=== PATIENT | female | born 1945 | race Caucasian/White ===

== ENCOUNTER 2017-01-12 16:45 | Inpatient (IN) | payer MEDICARE, BC ==
[~2017-01-12] VITALS: Ht 152.4 cm; Wt 42.5 kg
[2017-01-12 16:48] VITALS: BP 157/72; PULSE 112; RESP 17; TEMP 97.8; O2SAT 100
[2017-01-12 16:57] LABS: MEAN CORPUSCULAR HGB CONC 36.1 % (32.0-36.0)
[2017-01-12] MEDS ORDERED: SODIUM CHLORIDE 0.9% FLUSH 10 ML FLUSH IV FLUSH PRN ×2 (17:00→20:30)
[2017-01-12 17:07] VITALS: BP 114/68; PULSE 103; RESP 16; O2SAT 97
--- NOTE | 2017-01-12 17:30 | PD ---
HPI Chief Complaint: Jaundice Time Seen by Provider: 16:56 Travel History International Travel<30 days: No Contact w/Intl Traveler<30days: No Traveled to known affect area: No History of Present Illness HPI Patient is 71-year-old female who presents to emergency room with complaints of jaundice. Patient reports that she has noticed her jaundice skin and eyes for the past week and a half. Patient reports that she follows with Dr. Castillo ( Urologist) for her bladder cancer. Reports that last week, she noticed that her urine was a dark color. He did obtain a UA and reports no signs of infection. Reports that he ordered a bunch of labs and the RN from the office called her on Monday telling her that her liver function test were elevated. Patient reports that Dr. Castillo ordered a CT of abdomen/pelvis with IV contrast but reports "I feel too dizzy and lightheaded and I can't eat anything." Reports that with all her symptoms, she decided to come to the ER. Patient endorses that she does drink alcohol every several day. Patient reports that she drinks about 4-5 Artur lite beers each night for the past 6-7 years. Patient denies abdominal pain at this time. Denies fever/chills. No other c/o. Patient does smoke cigarettes PFSH Past Medical History Cancer: No Cardiovascular Problems: No Diabetes: No Diminished Hearing: No Endocrine: No Genitourinary: Yes (HEMATURIA) Hepatitis: No Hiatal Hernia: No Immune Disorder: No Musculoskeletal: No Neurologic: No Psychiatric: Yes (ANXIETY) Reproductive: Yes (?PMB) Respiratory: No Thyroid Disease: No Menopausal: Yes Past Surgical History Abdominal Surgery: Yes AICD: No Joint Replacement: No Pacemaker: No Tonsillectomy: Yes (1950) Social History Alcohol Use: Yes (6 PK DAILY) Tobacco Use: Yes (1PPD) Substance Use: No (5 BEERS/ DAY) Allergies-Medications (Allergen,Severity, Reaction): Coded Allergies: No Known Allergies (Verified , 03/13/15) Reported Meds & Prescriptions Reported Meds & Active Scripts Active No Active Prescriptions or Reported Medications Review of Systems General / Constitutional: No: Fever Eyes: Positive: Other (scleral icteris ), No: Visual changes HENT: Positive: Lightheadedness, No: Headaches Cardiovascular: No: Chest Pain or Discomfort Respiratory: No: Shortness of Breath Gastrointestinal: Positive: Nausea, No: Abdominal Pain Genitourinary: No: Dysuria Musculoskeletal: No: Pain Skin: Positive Other (jaundice), No Rash Neurologic: Positive: Dizziness, No: Weakness Psychiatric: No: Depression Endocrine: No: Polydipsia Hematologic/Lymphatic: No: Easy Bruising Physical Exam Narrative GENERAL: mild distress SKIN: Focused skin assessment warm/dry. Patient is jaundiced throughout her body HEAD: Atraumatic. Normocephalic. EYES: Pupils equal and round. Positive for scleral icterus. No injection or drainage. ENT: No nasal bleeding or discharge. Mucous membranes pink and moist. NECK: Trachea midline. No JVD. CARDIOVASCULAR: Regular rate and rhythm. No murmur appreciated. RESPIRATORY: No accessory muscle use. Clear to auscultation. Breath sounds equal bilaterally. GASTROINTESTINAL: Abdomen soft, non-tender, nondistended. Hepatic and splenic margins not palpable. MUSCULOSKELETAL: No obvious deformities. No clubbing. No cyanosis. No edema. NEUROLOGICAL: Awake and alert. No obvious cranial nerve deficits. Motor grossly within normal limits. Normal speech. PSYCHIATRIC: Appropriate mood and affect; insight and judgment normal. Data Data Last Documented VS Vital Signs Date Time Temp Pulse Resp B/P Pulse Ox O2 Delivery O2 Flow Rate FiO2 01/12/17 17:07 103 16 114/68 97 Room Air 01/12/17 16:48 97.8 Orders Complete Blood Count With Diff (01/12/17 16:56) Comprehensive Metabolic Panel (01/12/17 16:56) Lipase (01/12/17 16:56) Prothrombin Time / Inr (Pt) (01/12/17 16:56) Act Partial Throm Time (Ptt) (01/12/17 16:56) Urinalysis - C+S If Indicated (01/12/17 16:56) Iv Access Insert/Monitor (01/12/17 16:56) Ecg Monitoring (01/12/17 16:56) Oximetry (01/12/17 16:56) Sodium Chloride 0.9% Flush (Ns Flush) (01/12/17 17:00) Electrocardiogram (01/12/17 16:56) Ct Abd/Pel W Iv Contrast(Rout) (01/12/17 17:16) Tylenol (Acetaminophen) (01/12/17 17:20) Labs Laboratory Tests Test 01/12/17 17:20 White Blood Count 13.0 TH/MM3 Red Blood Count 3.16 MIL/MM3 Hemoglobin 11.1 GM/DL Hematocrit 30.6 % Mean Corpuscular Volume 97.0 FL Mean Corpuscular Hemoglobin 35.1 PG Mean Corpuscular Hemoglobin 36.1 % Concent Red Cell Distribution Width 13.6 % Platelet Count 413 TH/MM3 Mean Platelet Volume 9.4 FL Neutrophils (%) (Auto) % Lymphocytes (%) (Auto) % Monocytes (%) (Auto) % Eosinophils (%) (Auto) % Basophils (%) (Auto) % Neutrophils # (Auto) TH/MM3 Lymphocytes # (Auto) TH/MM3 Monocytes # (Auto) TH/MM3 Eosinophils # (Auto) TH/MM3 Basophils # (Auto) TH/MM3 CBC Comment AUTO DIFF Differential Total Cells 100 Counted Neutrophils % (Manual) 68 % Band Neutrophils % 5 % Lymphocytes % 17 % Monocytes % 9 % Neutrophils # (Manual) 9.6 TH/MM3 Metamyelocytes 1 % Differential Comment FINAL DIFF MANUAL Platelet Estimate HIGH Platelet Morphology Comment ENLARGED Target Cells 2+ Prothrombin Time 16.4 SEC Prothromb Time International 1.5 RATIO Ratio Activated Partial 30.4 SEC Thromboplast Time MDM Medical Decision Making Medical Screen Exam Complete: Yes Emergency Medical Condition: Yes Interpretation(s) EKG at 1804: Sinus tach at 102bpm, qt/qtc: 332/391, no acute st or t wave changes Vital Signs Date Time Temp Pulse Resp B/P Pulse Ox O2 Delivery O2 Flow Rate FiO2 01/12/17 16:48 97.8 112 17 157/72 100 Differential Diagnosis Differential includes liver failure, hepatitis, liver cirrhosis, ischemic hepatopathy, primary biliary cholangitis, viral hepatitis, biliary obstruction, drugs and toxin Narrative Course Patient is a 71-year-old female who presents to emergency room for evaluation of jaundice. Jaundice began about 1.5 weeks ago, patient reports that she did see her urologist as she does have history of bladder cancer and did have lab work performed last week which showed elevated liver function tests. Patient reports that she has not been feeling well, reports overall decreased oral intake, she's been feeling dizzy and has been belching, reports that she could not wait for the outpatient workup of her jaundiced Patient is jaundiced on exam with scleral icterus. Lab work including liver function tests ordered. CT abdomen pelvis with IV contrast ordered as well for further evaluation of her jaundiced. Patient will admission for workup of her symptoms Diagnosis Primary Impression: Jaundice Admitting Information Admitting Physician Requests: Admit Scripts No Active Prescriptions or Reported Meds Carole Dent DO Jan 12, 2017 17:30
[2017-01-12 17:51] LABS: APTT (PATIENT) 30.4 SEC (24.3-30.1); INTERNATIONAL NORMALIZED RATIO 1.5 RATIO; PROTHROMBIN TIME - PATIENT 16.4 SEC (9.8-11.6)
[2017-01-12 17:58] LABS: HEMATOCRIT 30.6 % (35.0-46.0); MEAN CORPUSCULAR HEMOGLOBIN 35.1 PG (27.0-34.0); PLATELET COUNT 413 TH/MM3 (150-450); RED BLOOD COUNT 3.16 MIL/MM3 (4.00-5.30); RED CELL DISTRIBUTION WIDTH 13.6 % (11.6-17.2)
[2017-01-12 18:01] LABS: HEMO FLAGS AUTO DIFF
[2017-01-12 18:30] LABS: BANDS 5 % (0-6); METAMYELOCYTES 1 % (0-1); NEUTROPHIL # MANUAL DIFF 9.6 TH/MM3 (1.8-7.7); POLYS (SEG NEUTROPHILS) 68 % (16-70); WBC DIFF SAMPLE 100
[2017-01-12 18:32] LABS: TARGET CELLS 2+ (NORMAL)
[2017-01-12 18:33] LABS: PLATELET ESTIMATE SMEAR HIGH (NORMAL); PLATELET MORPHOLOGY ENLARGED (NORMAL); SCAN/DIFF FINAL DIFF MANUAL
[2017-01-12 18:49] LABS: ALKALINE PHOSPHATASE 1057 U/L (45-117); ALT (GPT) 405 U/L (10-53); ANION GAP 10 MEQ/L (5-15); AST (GOT) 430 U/L (15-37); BICARBONATE 25.2 MEQ/L (21.0-32.0); BLOOD UREA NITROGEN 7 MG/DL (7-18); CHLORIDE 90 MEQ/L (98-107); GLOMERULAR FILTRATION RATE 101 ML/MIN (>89); POTASSIUM 4.6 MEQ/L (3.5-5.1); SODIUM (NA) 125 MEQ/L (136-145)
[2017-01-12 18:59] LABS: ACETAMINOPHEN LESS THAN 2.0 MCG/ML (10.0-30.0); TOTAL BILIRUBIN ADULT 23.6 MG/DL (0.2-1.0)
[2017-01-12 19:11] LABS: BACTERIA, URINE OCC /hpf; BLOOD, URINE NEG (NEG); COMMENT (UR) CULT NOT INDICATED; CULTURE IF INDICATED CULT NOT INDICATED; GLUCOSE,URINE NEG (NEG); KETONE, URINE NEG (NEG); NITRITE,URINE NEG (NEG); SQUAMOUS EPITHELIAL CELL URINE 3 /hpf (0-5)
[2017-01-12 19:12] LABS: URINE COLOR DARK-BROWN (YELLW/STRAW)
[2017-01-12] MEDS ORDERED: IOHEXOL 350 MG/ML 10 ML VIAL (for RAD DIAG) IV ONE (19:23)
--- NOTE | 2017-01-12 19:30 | RADRPT ---
EXAM DATE/TIME: 01/12/2017 19:16 [facility] COMPARISON: No previous studies available for comparison. INDICATIONS : Abdominal pain, hematuria and jaundice. IV CONTRAST: 87 cc Omnipaque 350 (iohexol) IV Injection Site: Lt AC Lot: [id number] Exp Date: November 2019 Lot: Exp Andre e: ORAL CONTRAST: No oral contrast ingested. RADIATION DOSE: 4.47 CTDIvol (mGy) MEDICAL HISTORY : Carcinoma, bladder. Hypertension. SURGICAL HISTORY : None. ENCOUNTER: Initial ACUITY: 2 days PAIN SCALE: 5/10 LOCATION: All quadrants. TECHNIQUE: Volumetric scanning of the abdomen and pelvis was performed. Using automated exposure control and ad justment of the mA and/or kV according to patient size, radiation dose was kept as low as reasonably achievable to obtain optimal diagnostic quality images. DICOM format image data is available electro nically for review and comparison. FINDINGS: LOWER LUNGS: The visualized lower lungs are clear. Large pattern is evident. LIVER: Liver is abnormal with intrahepatic biliary duct dilatation, large 2 cm, not in prominent 5 cm cyst a djacent to the gallbladder. There is mild pancreatic duct dilatation as well.. SPLEEN: Normal size without lesion. PANCREAS: Abnormal head of the pancreas as described above. ADRENAL GLANDS: Within normal limits. KIDNEYS: Normal in size and shape. There is no mass, stone, or hydronephrosis.. VASCULAR: Extensive aortoiliac vascular disease is present. There is no aneurysm. BOWEL/MESENTERY: The stomach, small bowel, and colon demonstrate no acute abnormality. There is no free intraperitone al air or fluid. RETROPERITONEUM: There is no lymphadenopathy. BLADDER: No wall thickening or mass. REPRODUCTIVE: Calcified uterine fibroids are noted. Diverticuli are present in the sigmoid colon. ABDOMINAL WALL: Within normal limits. INGUINAL: Negative MUSCULOSKELETAL: Osteopenia is present.. CONCLUSION: Abnormal common duct and distal pancreatic duct. MRCP would be of benefit Prominent gallbladder without obvious stones. Moody Washburn MD FACR on January 12, 2017 at 19:25 Board Certified Radiologist. This report was verified electronically.
--- NOTE | 2017-01-12 19:48 | PD ---
Data Data Last Documented VS Vital Signs Date Time Temp Pulse Resp B/P Pulse Ox O2 Delivery O2 Flow Rate FiO2 01/12/17 19:53 107 16 142/73 99 01/12/17 17:07 Room Air 01/12/17 16:48 97.8 Orders Complete Blood Count With Diff (01/12/17 16:56) Comprehensive Metabolic Panel (01/12/17 16:56) Lipase (01/12/17 16:56) Prothrombin Time / Inr (Pt) (01/12/17 16:56) Act Partial Throm Time (Ptt) (01/12/17 16:56) Urinalysis - C+S If Indicated (01/12/17 16:56) Iv Access Insert/Monitor (01/12/17 16:56) Ecg Monitoring (01/12/17 16:56) Oximetry (01/12/17 16:56) Sodium Chloride 0.9% Flush (Ns Flush) (01/12/17 17:00) Electrocardiogram (01/12/17 16:56) Ct Abd/Pel W Iv Contrast(Rout) (01/12/17 17:16) Tylenol (Acetaminophen) (01/12/17 17:20) Iohexol 350 Inj (Omnipaque 350 Inj) (01/12/17 19:23) Piperacil-Tazo 4.5 Gm Premix (Zosyn 4.5 (01/12/17 20:00) Labs Laboratory Tests Test 01/12/17 01/12/17 17:20 18:45 White Blood Count 13.0 TH/MM3 Red Blood Count 3.16 MIL/MM3 Hemoglobin 11.1 GM/DL Hematocrit 30.6 % Mean Corpuscular Volume 97.0 FL Mean Corpuscular Hemoglobin 35.1 PG Mean Corpuscular Hemoglobin 36.1 % Concent Red Cell Distribution Width 13.6 % Platelet Count 413 TH/MM3 Mean Platelet Volume 9.4 FL Neutrophils (%) (Auto) % Lymphocytes (%) (Auto) % Monocytes (%) (Auto) % Eosinophils (%) (Auto) % Basophils (%) (Auto) % Neutrophils # (Auto) TH/MM3 Lymphocytes # (Auto) TH/MM3 Monocytes # (Auto) TH/MM3 Eosinophils # (Auto) TH/MM3 Basophils # (Auto) TH/MM3 CBC Comment AUTO DIFF Differential Total Cells 100 Counted Neutrophils % (Manual) 68 % Band Neutrophils % 5 % Lymphocytes % 17 % Monocytes % 9 % Neutrophils # (Manual) 9.6 TH/MM3 Metamyelocytes 1 % Differential Comment FINAL DIFF MANUAL Platelet Estimate HIGH Platelet Morphology Comment ENLARGED Target Cells 2+ Prothrombin Time 16.4 SEC Prothromb Time International 1.5 RATIO Ratio Activated Partial 30.4 SEC Thromboplast Time Sodium Level 125 MEQ/L Potassium Level 4.6 MEQ/L Chloride Level 90 MEQ/L Carbon Dioxide Level 25.2 MEQ/L Anion Gap 10 MEQ/L Blood Urea Nitrogen 7 MG/DL Creatinine 0.59 MG/DL Estimat Glomerular Filtration 101 ML/MIN Rate Random Glucose 103 MG/DL Calcium Level 9.1 MG/DL Total Bilirubin 23.6 MG/DL Aspartate Amino Transf 430 U/L (AST/SGOT) Alanine Aminotransferase 405 U/L (ALT/SGPT) Alkaline Phosphatase 1057 U/L Total Protein 7.0 GM/DL Albumin 2.7 GM/DL Lipase 573 U/L Acetaminophen Level LESS THAN 2.0 MCG/ML Urine Color DARK-BROWN Urine Turbidity HAZY Urine pH 6.0 Urine Specific [place] 1.017 Urine Protein TRACE mg/dL Urine Glucose (UA) NEG mg/dL Urine Ketones NEG mg/dL Urine Occult Blood NEG Urine Nitrite NEG Urine Bilirubin LARGE Urine Urobilinogen 2.0 MG/DL Urine Leukocyte Esterase TRACE Urine RBC 1 /hpf Urine WBC 7 /hpf Urine Squamous Epithelial 3 /hpf Cells Urine Bacteria OCC /hpf Microscopic Urinalysis Comment CULT NOT INDICATED MDM Supervised Visit with ULYSSES: No Narrative Course The patient was initially evaluated by the previous provider and sent out to me at the beginning my shift. See her note for further details. Briefly this is a 71-year-old female with history of bladder cancer who drinks about 4-6 beers every night, here for evaluation of jaundice times one week. Patient has had decreased appetite, weakness, and lightheadedness. She denies abdominal pain. On physical exam she has diffuse jaundice with scleral icterus. No abdominal tenderness. Initial vital signs show heart rate 112, blood pressure 157/72, pulse ox 100% on room air, oral temp of 97.8 from high. CBC shows WBC 13, hemoglobin 11.1, hematocrit 30.6, platelets 413. CMP is remarkable for sodium 125, chloride 90, T bili 23.6, AST 4:30, ALT 45, alkaline phosphatase 1057. Lipase is 573. CT abdomen pelvis: CONCLUSION: Abnormal common duct and distal pancreatic duct. MRCP would be of benefit Prominent gallbladder without obvious stones. Case discussed with on-call gastric neurologist Dr. Morrow. Patient will be admitted to the medical service and they will see the patient in consultation. Patient will be started on Zosyn. The patient was made aware of all findings and plan for admission for further workup. Case discussed with hospitalist Dr. Love who will admit the patient to her service. Diagnosis Primary Impression: Jaundice Additional Impressions: Hyperbilirubinemia Transaminitis Admitting Information Admitting Physician Requests: Admit Scripts No Active Prescriptions or Reported Meds Alber Brown MD Jan 12, 2017 19:48
[2017-01-12 19:53] VITALS: BP 142/73; PULSE 107; RESP 16; O2SAT 99
[2017-01-12] MEDS ORDERED: PIPERACIL-TAZO 4.5 GM PREMIX 100 ML IV ONE (20:00)
[2017-01-12] MEDS ORDERED: NALOXONE HCL 0.4 MG/ML AMP IV PRN (20:30)
[2017-01-12] MEDS: SODIUM CHLORIDE 0.9% FLUSH 10 ML FLUSH IV FLUSH SCH (21:35)
[2017-01-12 21:50] VITALS: BP 121/63; PULSE 95; RESP 16; TEMP 99; O2SAT 95
[2017-01-12 22:45] VITALS: PULSE 93
--- NOTE | 2017-01-12 23:26 | HHI.HP ---
[facility] No Primary Care Physician Admission Diagnosis jaundice, hyperbilirubinemia, transaminitis Diagnoses: (1) Jaundice (2) Hyperbilirubinemia (3) Transaminitis Chief Complaint: Dizziness, lack of appetite Travel History International Travel<30 Days: No Contact w/Intl Traveler <30 Da: No Traveled to Known Affected Are: No History of Present Illness Written by Bette Cobian, acting as scribe for Dr. Love on 01/12/17 at 23:26. History of bladder cancer Bright orange when she wipes after urination x 1.5 weeks She saw her mainspring winder and had blood work last Monday Diminished appetite Dizziness for about 1.5 weeks Near syncopal Cystoscopy was planned for upcoming Monday but symptoms were too severe so she came to ED. Denies abdominal pain, just lack of appetite. Vomiting after excessive burping and coughing Thinks she's been losing weight over the past 1.5 weeks Denies fever, dysuria, hematuria, black or red stool Denies chest pain or shortness of breath . Review of Systems Except as stated in HPI: all other systems reviewed are Neg Past Family Social History Past Medical History Bladder cancer 1.5 to 2 years ago - just had surgical resection, no radiation or chemo Denies hypertension, diabetes mellitus, CAD, CHF, liver or kidney problems, DVT , PE, CVA, seizures, or thyroid problems . Past Surgical History Cystoscopy Bladder tumor resection . Reported Medications Reported Meds & Active Scripts Active [employer] sleep aid PRN insomnia Allergies: Coded Allergies: No Known Allergies (Verified , 03/13/15) Active Ordered Medications Current Medications Sodium Chloride (NS Flush) 2 ml UNSCH PRN IV FLUSH FLUSH AFTER USING IV ACCESS ; Start 01/12/17 at 17:00; Stop 01/12/17 at 20:35; Status DC Iohexol 87 ml 87 ml STK-MED ONCE IV Last administered on 01/12/17t 19:23; Start 01/12/17 at 19:23; Stop 01/12/17 at 19:24; Status DC Piperacillin Sod/ Tazobactam Sod (Zosyn 4.5 Gm Premix) 100 ml @ 200 mls/hr ONCE ONCE IV Last administered on 01/12/17 20:02; Start 01/12/17 at 20:00; Stop 01/12/17 at 20:29; Status DC Sodium Chloride (NS Flush) 2 ml UNSCH PRN IV FLUSH FLUSH AFTER USING IV ACCESS ; Start 01/12/17 at 20:30 Sodium Chloride (NS Flush) 2 ml BID IV FLUSH Last administered on 01/12/17 21: 35; Start 01/12/17 at 21:00 Naloxone HCl (Narcan Inj) 0.4 mg UNSCH PRN IV SEE LABEL COMMENTS; Start at 20:30 Family History Father from complications related to aging Brother from colon cancer Not sure about mother . Social History Tobacco: smokes 1 PPD Alcohol: 4 - 6 slade light beers daily - stopped about 2 1/2 weeks ago due to not feeling like drinking Illicit Drugs: denies about 7 years ago, has 5 [place] who [place]; supported locally by her brother . Physical Exam Vital Signs Vital Signs Date Time Temp Pulse Resp B/P Pulse Ox O2 Delivery O2 Flow Rate FiO2 01/12/17 19:53 107 16 142/73 99 01/12/17 17:07 103 16 114/68 97 Room Air 01/12/17 17:07 Room Air 01/12/17 16:48 97.8 112 17 157/72 100 Physical Exam GENERAL: This is a thin, elderly female patient, in no apparent distress. SKIN: No rashes, ecchymoses or lesions. Cool and dry. HEAD: Atraumatic. Normocephalic. EYES: No scleral icterus. No injection or drainage. ENT: Nose without bleeding, purulent drainage. NECK: Trachea midline. No JVD or lymphadenopathy. CARDIOVASCULAR: Regular rate and rhythm without murmurs, gallops, or rubs. RESPIRATORY: Clear to auscultation. Breath sounds equal bilaterally. No wheezes , rales, or rhonchi. GASTROINTESTINAL: Abdomen soft, nontender, nondistended. No guarding. MUSCULOSKELETAL: Extremities without clubbing, cyanosis, or edema. No calf tenderness. NEUROLOGICAL: Awake and alert. Motor and sensory grossly within normal limits. Normal speech. . Laboratory Laboratory Tests Test 01/12/17 01/12/17 17:20 18:45 White Blood Count 13.0 Red Blood Count 3.16 Hemoglobin 11.1 Hematocrit 30.6 Mean Corpuscular Volume 97.0 Mean Corpuscular Hemoglobin 35.1 Mean Corpuscular Hemoglobin 36.1 Concent Red Cell Distribution Width 13.6 Platelet Count 413 Mean Platelet Volume 9.4 Neutrophils (%) (Auto) Lymphocytes (%) (Auto) Monocytes (%) (Auto) Eosinophils (%) (Auto) Basophils (%) (Auto) Neutrophils # (Auto) Lymphocytes # (Auto) Monocytes # (Auto) Eosinophils # (Auto) Basophils # (Auto) CBC Comment AUTO DIFF Differential Total Cells 100 Counted Neutrophils % (Manual) 68 Band Neutrophils % 5 Lymphocytes % 17 Monocytes % 9 Neutrophils # (Manual) 9.6 Metamyelocytes 1 Differential Comment FINAL DIFF MANUAL Platelet Estimate HIGH Platelet Morphology Comment ENLARGED Target Cells 2+ Prothrombin Time 16.4 Prothromb Time International 1.5 Ratio Activated Partial 30.4 Thromboplast Time Sodium Level 125 Potassium Level 4.6 Chloride Level 90 Carbon Dioxide Level 25.2 Anion Gap 10 Blood Urea Nitrogen 7 Creatinine 0.59 Estimat Glomerular Filtration 101 Rate Random Glucose 103 Calcium Level 9.1 Total Bilirubin 23.6 Aspartate Amino Transf 430 (AST/SGOT) Alanine Aminotransferase 405 (ALT/SGPT) Alkaline Phosphatase 1057 Total Protein 7.0 Albumin 2.7 Lipase 573 Acetaminophen Level LESS THAN 2.0 Urine Color DARK-BROWN Urine Turbidity HAZY Urine pH 6.0 Urine Specific [place] 1.017 Urine Protein TRACE Urine Glucose (UA) NEG Urine Ketones NEG Urine Occult Blood NEG Urine Nitrite NEG Urine Bilirubin LARGE Urine Urobilinogen 2.0 Urine Leukocyte Esterase TRACE Urine RBC 1 Urine WBC 7 Urine Squamous Epithelial 3 Cells Urine Bacteria OCC Microscopic Urinalysis Comment CULT NOT INDICATED Result Diagram: 01/12/17 1720 01/12/17 1720 Imaging Last Impressions Abdomen/Pelvis CT 01/12/17 1716 Signed Impressions: Service Date/Time: January 19:16 - CONCLUSION: Abnormal common duct and distal pancreatic duct. MRCP would be of benefit Prominent gallbladder without obvious stones. Moody Washburn MD FACR . Assessment and Plan Problem List: (1) Jaundice ICD Code: R17 Status: Acute (2) Hyperbilirubinemia ICD Code: E80.6 Status: Acute (3) Transaminitis ICD Code: R74.0 Status: Acute (4) Leukocytosis ICD Code: D72.829 Status: Acute (5) Hyponatremia ICD Code: E87.1 Status: Acute (6) Mild anemia ICD Code: D64.9 Status: Acute Assessment and Plan 71 y/o female with history of bladder cancer presented with dizziness, weakness , and poor appetite: Jaundice Hyperbilirubinemia - total bilirubin 23.6 Transaminitis - AST 4:30, ALT 405, alkaline phosphatase 1057 - Abdomen Pelvis CT with IV contrast showed abnormal common duct and distal pancreatic duct. Prominent gallbladder without obvious stones. - Nothing by mouth - MRI MRCP with and without contrast - consult gastroenterology - appreciate assistance - repeat CMP in a.m. and follow results Leukocytosis with no left shift - WBC 13.0 on admission - Repeat CBC in a.m. and follow results - Suspect secondary to stress response vs viral infection vs inflammation - no source of infection identified and patient afebrile Hyponatremia - initial sodium 125, was 132 - 11/2014 - NS at 42 cc/hr - recheck bmp in am and follow sodium level for improvement Anemia, normocytic and mildly hypochromic - Hgb 11.1, was 17.2 - 11/2014 and 18.3 - 05/18 - We will repeat CBC in a.m. and follow results - recommend to trend H&H - prior elevation likely hemoconcentration DVT prophylaxis - SCDs/TEDs . This note was transcribed by yazmin [Bette Cobian]. I, Dr. Luciano Love personally performed the history, physical exam, and medical decision making; and confirmed the accuracy of the information in the transcribed note. Authenticated by Dr. Luciano Love on 01/12/17 at 23:26. Discussed Condition With ER physician, patient, and RN Physician Certification 2 Midnight Certification Type: Admission for Inpatient Services Order for Inpatient Services The services are ordered in accordance with Medicare regulations or non- Medicare payer requirements, as applicable. In the case of services not specified as inpatient-only, they are appropriately provided as inpatient services in accordance with the 2-midnight benchmark. Estimated LOS (days): 3 days is the estimated time the patient will need to remain in the hospital, assuming treatment plan goals are met and no additional complications. Post-Hospital Plan: Home Bette Cobian Jan 12, 2017 23:26 Luciano Love MD Jan 13, 2017 08:29
[2017-01-13] VITALS: BP 122/76; PULSE 96; RESP 16; TEMP 98.5; O2SAT 100
[2017-01-13] MEDS: diphenhydrAMINE HCL 50 MG CAP PO PRN ×2 (00:32→21:26)
[2017-01-13] MEDS ORDERED: SODIUM CHLOR 0.9% 1000 ML INJ 1,000 ML IV SCH (01:15)
[2017-01-13 04:00] VITALS: BP 104/54; PULSE 90; RESP 16; TEMP 98.7; O2SAT 96
[2017-01-13 08:00] VITALS: BP 118/56; PULSE 95; RESP 18; TEMP 98.3; O2SAT 98
[2017-01-13 08:35] VITALS: PULSE 97
[2017-01-13] MEDS: SODIUM CHLORIDE 0.9% FLUSH 10 ML FLUSH IV FLUSH SCH ×2 (09:00→21:28)
--- NOTE | 2017-01-13 09:39 | HHI.PR ---
Subjective Remarks Follow up jaundice. Patient denies abdominal pain, nausea, vomiting. States that she feels "wiped out". Objective Vitals Vital Signs Date Time Temp Pulse Resp B/P Pulse Ox O2 Delivery O2 Flow Rate FiO2 01/13/17 08:00 98.3 95 18 118/56 98 01/13/17 04:00 Room Air 01/13/17 04:00 98.7 90 16 104/54 96 01/13/17 00:25 Room Air 01/13/17 00:00 98.5 96 16 122/76 100 01/12/17 22:45 93 01/12/17 21:50 99.0 95 16 121/63 95 01/12/17 19:53 107 16 142/73 99 01/12/17 17:07 103 16 114/68 97 Room Air 01/12/17 17:07 Room Air 01/12/17 16:48 97.8 112 17 157/72 100 I/O 01/12/17 01/12/17 01/12/17 01/13/17 01/13/17 01/13/17 07:00 15:00 23:00 07:00 15:00 23:00 Intake Total 0 ml Balance 0 ml Intake Oral 0 ml # Voids 1 # Bowel Movements 0 Result Diagram: 01/12/17 1720 01/12/17 1720 Imaging Last Impressions Abdomen/Pelvis CT 01/12/17 1716 Signed Impressions: Service Date/Time: January 19:16 - CONCLUSION: Abnormal common duct and distal pancreatic duct. MRCP would be of benefit Prominent gallbladder without obvious stones. Moody Washburn MD FACR Objective Remarks General: Thin female in no acute distress. Jaundiced. HEENT: Scleral icterus noted. Heart: Regular rate and rhythm. No murmur. Lungs: Clear to auscultation bilaterally. No wheezes, rales, or rhonchi. Breathing is nonlabored. Abdomen: Soft, nontender, nondistended. Extremities: No lower extremity edema. Psych: Alert and oriented. Procedures none Urinary Catheter: No Vascular Central Line Catheter: No A/P Problem List: (1) Jaundice ICD Code: R17 Status: Acute (2) Hyperbilirubinemia ICD Code: E80.6 Status: Acute (3) Transaminitis ICD Code: R74.0 Status: Acute (4) Leukocytosis ICD Code: D72.829 Status: Acute (5) Hyponatremia ICD Code: E87.1 Status: Acute (6) Mild anemia ICD Code: D64.9 Status: Acute Assessment and Plan 1. Jaundice, painless: Total bilirubin 23, AST & ALT elevated. Repeat labs pending this morning. GI consult pending. Will likely need ERCP. May need MRI to evaluate for pancreatic mass. 2. Leukocytosis: Repeat labs are pending. Likely stress reaction. 3. Hyponatremia: Continue normal saline. Repeat labs are pending this morning. 4. Normocytic anemia: Monitor labs. 5. DVT prophylaxis: CHRIS Mead. Jamie Rojas MD Jan 13, 2017 09:39
[2017-01-13 09:50] LABS: HEMATOCRIT 27.8 % (35.0-46.0); MEAN CELL VOLUME 97.6 FL (80.0-100.0); MEAN CORPUSCULAR HGB CONC 35.8 % (32.0-36.0); PLATELET COUNT 399 TH/MM3 (150-450); RED BLOOD COUNT 2.85 MIL/MM3 (4.00-5.30); RED CELL DISTRIBUTION WIDTH 13.5 % (11.6-17.2); WHITE BLOOD COUNT 11.4 TH/MM3 (4.0-11.0)
[2017-01-13 10:09] LABS: HEMO FLAGS AUTO DIFF
[2017-01-13 10:27] LABS: ALT (GPT) 335 U/L (10-53); ANION GAP 10 MEQ/L (5-15); AST (GOT) 358 U/L (15-37); BICARBONATE 23.1 MEQ/L (21.0-32.0); BLOOD UREA NITROGEN 6 MG/DL (7-18); CHLORIDE 93 MEQ/L (98-107); GLOMERULAR FILTRATION RATE 158 ML/MIN (>89); POTASSIUM 3.4 MEQ/L (3.5-5.1); SODIUM (NA) 126 MEQ/L (136-145)
[2017-01-13 10:47] LABS: BANDS 4 % (0-6); NEUTROPHIL # MANUAL DIFF 9.6 TH/MM3 (1.8-7.7); POLYS (SEG NEUTROPHILS) 79 % (16-70); PROMYELOCYTES 1 % (0-0); WBC DIFF SAMPLE 100
[2017-01-13 10:48] LABS: PLATELET ESTIMATE SMEAR NORMAL (NORMAL); PLATELET MORPHOLOGY NORMAL (NORMAL); SCAN/DIFF FINAL DIFF MANUAL
[2017-01-13 10:49] LABS: STOMATOCYTES 1+ (NORMAL); TARGET CELLS 2+ (NORMAL)
--- NOTE | 2017-01-13 10:51 | PD.CONS ---
HPI History of Present Illness This is a 71 year old female who came to the emergency room for evaluation of generalized weakness, decreased appetite, and painless jaundice. She has a history of bladder cancer and was treated with resection about 1 and 1/2 to 2 years ago. She reports that this has been stable and she is followed by Dr. Castillo. She was doing well up until 2 weeks ago, when she had sudden onset of decreased appetite. She denies any associated nausea or vomiting but states she has no appetite and has been having to force herself just to eat a few bites. She denies any abdominal pain, but complains of slight bloating. She has lost several pounds, although she cannot quantify that amount. She noticed about a week and a half ago that she began having extremely dark urine and her skin color was yellow. She thought she had blood in her urine and therefore went to see Dr. Castillo, who did a UA and told her that she did not have any blood in her urine and sent her for outpatient labs. Over the past 2 weeks she' s been having worsening generalized weakness and therefore she came to the ER for further evaluation. She was noted to have elevated LFTs with T. Bili 23.6, AST 430, ALT 405, Alk Phosph 1057. Lipase 573. Abdomen/Pelvis CT (01/12/17)--- > Abnormal common duct and distal pancreatic duct. MRCP would be of benefit Prominent gallbladder without obvious stones. She denies any history of pancreatitis. She was drinking 4-5 beers daily up until 2 weeks ago when she no longer had the taste for it. PFSH Past Medical History Bladder cancer, s/p surgical resection, no radiation or chemo Past Surgical History Cystoscopy Bladder tumor resection Surgery for Zapien neuroma Coded Allergies: No Known Allergies (Verified , 03/13/15) Medications Allergies Coded Allergies Type Severity Reaction Last Updated Verified No Known Allergies 03/13/15 Yes Active Scripts Medications Dose Route/Sig Days Date Category No Active Prescriptions or Reported Medications Rx Family History Father from Alzheimer's dementia Brother from colon cancer Social History Smokes 1 PPD, normally drinks 4-5 beers daily, but stopped completed 2 weeks ago secondary to decreased appetite. No illicit drugs Review of Systems Constitutional: COMPLAINS OF: Fatigue, Fever, Weight loss, Change in appetite, DENIES: Chills Respiratory: COMPLAINS OF: Cough, DENIES: Shortness of breath Cardiovascular: DENIES: Chest pain Gastrointestinal: COMPLAINS OF: Anorexia, Swelling of Abdomen, DENIES: Abdominal pain, Black stools, Bloody stools, Constipation, Diarrhea, Nausea, Vomiting, Heartburn, Hematemesis Integumentary: COMPLAINS OF: Jaundice Hematologic/lymphatic: DENIES: Bruising Neurologic: DENIES: Headache Psychiatric: DENIES: Confusion GI Exam Vitals I&O Vital Signs Date Time Temp Pulse Resp B/P Pulse Ox O2 Delivery O2 Flow Rate FiO2 01/13/17 08:00 Room Air 01/13/17 08:00 98.3 95 18 118/56 98 01/13/17 04:00 Room Air 01/13/17 04:00 98.7 90 16 104/54 96 01/13/17 00:25 Room Air 01/13/17 00:00 98.5 96 16 122/76 100 01/12/17 22:45 93 01/12/17 21:50 99.0 95 16 121/63 95 01/12/17 19:53 107 16 142/73 99 01/12/17 17:07 103 16 114/68 97 Room Air 01/12/17 17:07 Room Air 01/12/17 16:48 97.8 112 17 157/72 100 I/O 01/12/17 01/12/17 01/12/17 01/13/17 01/13/17 01/13/17 07:00 15:00 23:00 07:00 15:00 23:00 Intake Total 0 ml Balance 0 ml Intake Oral 0 ml # Voids 1 # Bowel Movements 0 Imaging Last Impressions Abdomen/Pelvis CT 01/12/17 1716 Signed Impressions: Service Date/Time: January 19:16 - CONCLUSION: Abnormal common duct and distal pancreatic duct. MRCP would be of benefit Prominent gallbladder without obvious stones. Moody Washburn MD FACR Laboratory Test 01/12/17 01/12/17 01/13/17 17:20 18:45 08:46 White Blood Count 13.0 TH/MM3 11.4 TH/MM3 Red Blood Count 3.16 MIL/MM3 2.85 MIL/MM3 Hemoglobin 11.1 GM/DL 10.0 GM/DL Hematocrit 30.6 % 27.8 % Mean Corpuscular Volume 97.0 FL 97.6 FL Mean Corpuscular Hemoglobin 35.1 PG 35.0 PG Mean Corpuscular Hemoglobin 36.1 % 35.8 % Concent Red Cell Distribution Width 13.6 % 13.5 % Platelet Count 413 TH/MM3 399 TH/MM3 Mean Platelet Volume 9.4 FL 9.1 FL Neutrophils (%) (Auto) % % Lymphocytes (%) (Auto) % % Monocytes (%) (Auto) % % Eosinophils (%) (Auto) % % Basophils (%) (Auto) % % Neutrophils # (Auto) TH/MM3 TH/MM3 Lymphocytes # (Auto) TH/MM3 TH/MM3 Monocytes # (Auto) TH/MM3 TH/MM3 Eosinophils # (Auto) TH/MM3 TH/MM3 Basophils # (Auto) TH/MM3 TH/MM3 CBC Comment AUTO DIFF AUTO DIFF Differential Total Cells 100 Counted Neutrophils % (Manual) 68 % Band Neutrophils % 5 % Lymphocytes % 17 % Monocytes % 9 % Neutrophils # (Manual) 9.6 TH/MM3 Metamyelocytes 1 % Differential Comment FINAL DIFF MANUAL Platelet Estimate HIGH Platelet Morphology Comment ENLARGED Target Cells 2+ Prothrombin Time 16.4 SEC Prothromb Time International 1.5 RATIO Ratio Activated Partial 30.4 SEC Thromboplast Time Sodium Level 125 MEQ/L 126 MEQ/L Potassium Level 4.6 MEQ/L 3.4 MEQ/L Chloride Level 90 MEQ/L 93 MEQ/L Carbon Dioxide Level 25.2 MEQ/L 23.1 MEQ/L Anion Gap 10 MEQ/L 10 MEQ/L Blood Urea Nitrogen 7 MG/DL 6 MG/DL Creatinine 0.59 MG/DL 0.40 MG/DL Estimat Glomerular Filtration 101 ML/MIN 158 ML/MIN Rate Random Glucose 103 MG/DL 73 MG/DL Calcium Level 9.1 MG/DL 8.4 MG/DL Total Bilirubin 23.6 MG/DL Aspartate Amino Transf 430 U/L 358 U/L (AST/SGOT) Alanine Aminotransferase 405 U/L 335 U/L (ALT/SGPT) Alkaline Phosphatase 1057 U/L Total Protein 7.0 GM/DL Albumin 2.7 GM/DL 2.2 GM/DL Lipase 573 U/L Acetaminophen Level LESS THAN 2.0 MCG/ML Urine Color DARK-BROWN Urine Turbidity HAZY Urine pH 6.0 Urine Specific [place] 1.017 Urine Protein TRACE mg/dL Urine Glucose (UA) NEG mg/dL Urine Ketones NEG mg/dL Urine Occult Blood NEG Urine Nitrite NEG Urine Bilirubin LARGE Urine Urobilinogen 2.0 MG/DL Urine Leukocyte Esterase TRACE Urine RBC 1 /hpf Urine WBC 7 /hpf Urine Squamous Epithelial 3 /hpf Cells Urine Bacteria OCC /hpf Microscopic Urinalysis Comment CULT NOT INDICATED Physical Examination HEENT: Normocephalic; atraumatic; + jaundice. CHEST: CTA CARDIAC: RRR ABDOMEN: Soft, nondistended, nontender; no hepatosplenomegaly; bowel sounds are present in all four quadrants. EXTREMITIES: No clubbing, cyanosis, or edema. SKIN: Normal; no rash; + jaundice. DOUGHNUT DOUGH MIXER: No focal deficits; alert and oriented times three. Assessment and Plan Plan ASSESSMENT: - Painless jaundice/elevated LFTs. Pt with sudden onset decreased appetite, weight loss, jaundice, dark urine 1.5-2 weeks ago. She has lost weight but is unable to quantify. LFTs with T. Bili 23.6, AST 430, ALT 405, Alk Phosph 1057. Lipase 573. Abdomen/Pelvis CT (01/12/17)---> Abnormal common duct and distal pancreatic duct. MRCP would be of benefit Prominent gallbladder without obvious stones. She denies any history of pancreatitis. She was drinking 4-5 beers daily up until 2 weeks ago when she no longer had the taste for it. NPO. IVF. Plan for EUS, ERCP today. Ca19-9, CEA, AFP level. CBC, CMP, Lipase in am. - Leukocytosis, low-grade fever. S/P one dose of zosyn. - Hyponatremia, hypokalemia per attending - History bladder cancer, status post resection 1.5 years ago[address]. Castillo. Recently seen for suspected blood in urine and he said she did not have any and sent her for outpatient labs. PLAN: - Plan for EUS/ERCP with possible stent placement today - Obtain consents - Nothing by mouth - IV fluids - CA-19-9, AFP, CEA - CBC, CMP, lipase in a.m. - Supportive care - Further recommendations to follow based on results of above - Pt seen and examined by Dr. Morrow and myself and this note is written on his behalf Fouzia Baxter Jan 13, 2017 10:50
[2017-01-13 11:02] LABS: ALKALINE PHOSPHATASE 999 U/L (45-117)
[2017-01-13 11:04] LABS: TOTAL BILIRUBIN ADULT 22.9 MG/DL (0.2-1.0)
[2017-01-13] MEDS: NS + KCL 20 MEQ INJ 1,000 ML IV SCH (11:58)
[2017-01-13 12:00] VITALS: BP 135/61; PULSE 98; RESP 18; TEMP 98.2; O2SAT 97
[2017-01-13] MEDS ORDERED: NEOSTIGMINE 3 MG/3 ML SYR IV ONE (12:00)
[2017-01-13] MEDS ORDERED: ONDANSETRON HCL 4 MG/2 ML VIAL IV PUSH ONE (12:00)
[2017-01-13] MEDS ORDERED: PROPOFOL 200 MG/20 ML AMP IV ONE (12:00)
--- NOTE | 2017-01-13 14:21 | EKG ---
Date Performed: 01/12/2017 Time Performed: 18:04:12 PTAGE: 71 years EKG: SINUS TACHYCARDIA ABNORMAL RHYTHM ECG PREVIOUS TRACING : 11/07/2014 09.45 Since previous tracing, no significant change. DOCTOR: Jason Hardin Interpretating Date/Time 01/13/2017 14:21:05
[2017-01-13] MEDS ORDERED: SUGAMMADEX SODIUM 200 MG/2 ML VIAL IV PUSH ONE ×2 (16:04)
--- NOTE | 2017-01-13 17:46 | PD.PROCEDR ---
GI Procedure REFERRING PHYSICIAN ELIZABETH COFFEY PERFORMED EGD with biopsy followed by endoscopic ultrasound INDICATION FOR PROCEDURE Jaundice, abnormal imaging PROCEDURE: The procedure, risks and benefits were discussed with Ms. Membreno and informed consent was obtained. Anesthesia sedated her with Diprivan. She was placed in the left lateral decubitus position. EGD: The Pentax videoscope was introduced through the oropharynx and advanced to the second portion of the duodenum under direct visualization. Retroflexion was performed in the stomach. FINDINGS: Esophagus there was a benign stricture at the level of the GE junction this was ultimately dilated with the scope Stomach there was a large hiatal hernia otherwise gastric mucosa was unremarkable Duodenum there was a stricture with mildly irregular but benign-looking mucosa at the level of the duodenal sweep it was very difficult to pass the upper scope and I was unable to ultimately pass the endoscopic ultrasound neither the radial or the linear pass through this area biopsies were taken for further evaluation there were a couple of spots that appeared to be somewhat polyp-like and these were biopsied Endoscopic ultrasound: The Pentax endoscopic ultrasound scope was introduced through the oropharynx and advanced to the duodenal bulb. FINDINGS: The pancreatic body and pancreatic tail parenchyma appeared to be somewhat lobular and hypoechoic with a normal pancreatic duct in the pancreatic body but suddenly dilating in the tail to about 4 mm no mass was seen I was unable to pass the scope through the duodenum in order to get a good evaluation of the pancreatic head no distinct masses were seen in the common bile duct was dilated with no filling defects but I was unable to track it all the way down to the ampulla there were no lymph nodes noted The patient was to get an ERCP but due to the duodenal stricturing this was canceled ESTIMATED BLOOD LOSS: None SPECIMENS REMOVED: Biopsies from the duodenum COMPLICATIONS: None IMPRESSION: Benign Distal esophageal stricture Hiatal hernia Duodenal mucosal irregularity with stricturing of the duodenal sweep Dilated pancreatic duct Dilated common bile duct PLAN: Await biopsies Proceed with MRCP Probable PTC Case to be discussed with radiology Tumor markers Aj Shahid MD Jan 13, 2017 17:46
[2017-01-13] MEDS ORDERED: fentaNYL CITRATE 250 MCG/5 ML AMP ONE (18:59)
[2017-01-13] MEDS ORDERED: DO NOT ADM ANY ANTICOAGULANT DRUGS PRN (19:45)
[2017-01-13 20:00] VITALS: BP 156/71; PULSE 100; PULSE 93; RESP 20; TEMP 98.1; O2SAT 97
[2017-01-14] VITALS (7 sets, daily range): BP systolic 118–157; BP diastolic 54–74; PULSE 62–103; RESP 16–22; TEMP 97.3–98.4; O2SAT 93–100
[2017-01-14 07:08] LABS: HEMATOCRIT 26.8 % (35.0-46.0); MEAN CORPUSCULAR HEMOGLOBIN 34.7 PG (27.0-34.0); MEAN CORPUSCULAR HGB CONC 35.8 % (32.0-36.0); PLATELET COUNT 406 TH/MM3 (150-450); RED BLOOD COUNT 2.76 MIL/MM3 (4.00-5.30); RED CELL DISTRIBUTION WIDTH 13.6 % (11.6-17.2); WHITE BLOOD COUNT 14.5 TH/MM3 (4.0-11.0)
[2017-01-14 07:19] LABS: HEMO FLAGS AUTO DIFF
[2017-01-14 07:37] LABS: ALT (GPT) 316 U/L (10-53); ANION GAP 13 MEQ/L (5-15); AST (GOT) 373 U/L (15-37); BICARBONATE 20.6 MEQ/L (21.0-32.0); BLOOD UREA NITROGEN 9 MG/DL (7-18); CHLORIDE 99 MEQ/L (98-107); GLOMERULAR FILTRATION RATE 138 ML/MIN (>89); SODIUM (NA) 133 MEQ/L (136-145)
[2017-01-14 07:52] LABS: ALKALINE PHOSPHATASE 994 U/L (45-117); TOTAL BILIRUBIN ADULT 22.6 MG/DL (0.2-1.0)
--- NOTE | 2017-01-14 09:23 | RADRPT ---
EXAM DATE/TIME: 01/14/2017 08:31 [facility] COMPARISON: CT ABDOMEN & PELVIS W CONTRAST, January 12, 2017, 19:16. INDICATIONS : Abdominal pain and jaundice. Abnormal CT demonstrating dilatation of common bile duct. MEDICAL HISTORY : Carcinoma, bladder. SURGICAL HISTORY : Bladder tumor resection. ENCOUNTER: Initial ACUITY: 1 day PAIN SCORE: 0/10 LOCATION: Abdomen. TECHNIQUE: Multiplanar, multisequence magnetic resonance imaging of the abdomen was performed. High-resolution 3D dataset was utilized to reconstruct maximum-intensity projection (MIP) images. FINDINGS: INTRAHEPATIC BILE DUCTS: There is significant intrahepatic biliary ductal dilatation greater centrally. EXTRAHEPATIC BILE DUCTS: The common bile duct measures up to 2.2 cm in greatest diameter. No stone or filling defect is identi fied. The duct tapers down distally as no distinct mass. GALLBLADDER: No stones, wall thickening, or pericholecystic fluid. LIVER: Normal size and signal intensity. There is a large simple cyst again noted in the anterior lower righ t lobe adjacent to the gallbladder measuring up to 4.9 x 4.9 x 4.2 cm. There is a smaller 1 cm cyst i n the left lobe. PANCREAS: The main pancreatic duct is at the upper limits of normal in size There is no significant anatomical variant. Signal intensity is within normal limits. No mass is visualized on this non-contrast exam. OTHER: The remaining visualized structures demonstrate no acute abnormality on this non-contrast exam. There is a small to moderate size hiatal hernia again noted. CONCLUSION: 1. Significant intrahepatic and extrahepatic biliary ductal dilatation with no visualized mass on thi s noncontrast study. A small distal tumor or stricture could be present. 2. The pancreatic duct is at the upper limits of normal in size. There is no visualized pancreatic le meghna. 3. Large simple cyst again noted in the liver. There is a smaller cyst in the left lobe. 4. Small to moderate-sized hiatal hernia. 5. The gallbladder is at the upper limits of normal in size with no evidence of cholelithiasis. Oren Garduno MD on January 14, 2017 at 9:12 Board Certified Radiologist. This report was verified electronically.
--- NOTE | 2017-01-14 10:06 | HHI.PR ---
Subjective Remarks Follow up jaundice. The patient states that she feels "about the same". Occasional crampy abdominal pain. Denies chest pain, dyspnea. Objective Vitals Vital Signs Date Time Temp Pulse Resp B/P Pulse Ox O2 Delivery O2 Flow Rate FiO2 01/14/17 08:00 98.2 92 20 118/66 98 01/14/17 04:00 Nasal Cannula 2.00 01/14/17 04:00 98.3 90 20 126/54 100 01/14/17 00:00 97.3 62 16 157/74 93 01/14/17 00:00 Nasal Cannula 2.00 01/13/17 20:00 Nasal Cannula 2.00 01/13/17 20:00 93 01/13/17 20:00 98.1 100 20 156/71 97 01/13/17 18:18 97.5 86 20 134/63 99 Nasal Cannula 2 01/13/17 18:15 86 20 134/63 99 Nasal Cannula 2 01/13/17 18:00 89 20 138/60 98 Nasal Cannula 2 01/13/17 17:45 84 20 125/60 97 Nasal Cannula 2 01/13/17 17:32 97.5 101 20 138/76 95 Nasal Cannula 2 01/13/17 12:00 98.2 98 18 135/61 97 I/O 01/13/17 01/13/17 01/13/17 01/14/17 01/14/17 01/14/17 07:00 15:00 23:00 07:00 15:00 23:00 Intake Total 0 ml 665 ml 316 ml Balance 0 ml 665 ml 316 ml Intake Oral 0 ml 0 ml 0 ml IV Total 165 ml 316 ml Other 500 ml # Voids 1 2 2 2 # Bowel Movements 0 0 0 Result Diagram: 01/14/17 0602 01/14/17 0602 Imaging Last Impressions Cholangiopancreatography MRI 01/14/17 0000 Signed Impressions: Service Date/Time: Saturday, January 14, 2017 08:31 - CONCLUSION: 1. Significant intrahepatic and extrahepatic biliary ductal dilatation with no visualized mass on this noncontrast study. A small distal tumor or stricture could be present. 2. The pancreatic duct is at the upper limits of normal in size. There is no visualized pancreatic lesion. 3. Large simple cyst again noted in the liver. There is a smaller cyst in the left lobe. 4. Small to moderate-sized hiatal hernia. 5. The gallbladder is at the upper limits of normal in size with no evidence of cholelithiasis. Oren Garduno MD Abdomen/Pelvis CT 01/12/17 1716 Signed Impressions: Service Date/Time: January 19:16 - CONCLUSION: Abnormal common duct and distal pancreatic duct. MRCP would be of benefit Prominent gallbladder without obvious stones. Moody Washburn MD FACR Objective Remarks General: Thin female in no acute distress. Jaundiced. HEENT: Scleral icterus noted. Heart: Regular rate and rhythm. No murmur. Lungs: Clear to auscultation bilaterally. No wheezes, rales, or rhonchi. Breathing is nonlabored. Abdomen: Soft, nontender, nondistended. Extremities: No lower extremity edema. Psych: Alert and oriented. Procedures none Urinary Catheter: No Vascular Central Line Catheter: No A/P Problem List: (1) Jaundice ICD Code: R17 Status: Acute (2) Hyperbilirubinemia ICD Code: E80.6 Status: Acute (3) Transaminitis ICD Code: R74.0 Status: Acute (4) Leukocytosis ICD Code: D72.829 Status: Acute (5) Hyponatremia ICD Code: E87.1 Status: Acute (6) Mild anemia ICD Code: D64.9 Status: Acute Assessment and Plan 1. Jaundice, painless: Total bilirubin, AST, & ALT elevated. Appreciate GI recommendations. S/P EGD with EUS. 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 S/P MRCP. 2. Leukocytosis: No other signs of infection at this time. WBCs increased today. 3. Hyponatremia: Continue normal saline. Improving. 4. Normocytic anemia: Monitor labs. 5. DVT prophylaxis: SCDs, CHRIS hose. 6. Hypokalemia: Improved. Jamie Rojas MD Jan 14, 2017 10:06
[2017-01-14 10:50] LABS: BANDS 7 % (0-6); NEUTROPHIL # MANUAL DIFF 11.6 TH/MM3 (1.8-7.7); POLYS (SEG NEUTROPHILS) 73 % (16-70); WBC DIFF SAMPLE 100
[2017-01-14 10:52] LABS: PLATELET ESTIMATE SMEAR NORMAL (NORMAL); PLATELET MORPHOLOGY NORMAL (NORMAL); SCAN/DIFF FINAL DIFF MANUAL; STOMATOCYTES 2+ (NORMAL); TARGET CELLS 2+ (NORMAL)
--- NOTE | 2017-01-14 15:25 | HHI.GIFU ---
Subjective Remarks Pt resting in bed, tearful and anxious about hospital stay. "Why can't I just stay jaundiced?" tolerating clears, likes popsicles. (Isabelle Fonseca) Objective Vitals I&O Vital Signs Date Time Temp Pulse Resp B/P Pulse Ox O2 Delivery O2 Flow Rate FiO2 01/14/17 12:00 97.8 103 22 139/63 95 01/14/17 08:00 Room Air 01/14/17 08:00 98.2 92 20 118/66 98 01/14/17 07:48 93 01/14/17 04:00 Nasal Cannula 2.00 01/14/17 04:00 98.3 90 20 126/54 100 01/14/17 00:00 97.3 62 16 157/74 93 01/14/17 00:00 Nasal Cannula 2.00 01/13/17 20:00 Nasal Cannula 2.00 01/13/17 20:00 93 01/13/17 20:00 98.1 100 20 156/71 97 01/13/17 18:18 97.5 86 20 134/63 99 Nasal Cannula 2 01/13/17 18:15 86 20 134/63 99 Nasal Cannula 2 01/13/17 18:00 89 20 138/60 98 Nasal Cannula 2 01/13/17 17:45 84 20 125/60 97 Nasal Cannula 2 01/13/17 17:32 97.5 101 20 138/76 95 Nasal Cannula 2 I/O 01/13/17 01/13/17 01/13/17 01/14/17 01/14/17 01/14/17 07:00 15:00 23:00 07:00 15:00 23:00 Intake Total 0 ml 665 ml 316 ml Balance 0 ml 665 ml 316 ml Intake Oral 0 ml 0 ml 0 ml IV Total 165 ml 316 ml Other 500 ml # Voids 1 2 2 2 # Bowel Movements 0 0 0 Laboratory Laboratory Tests Test 01/14/17 06:02 White Blood Count 14.5 Red Blood Count 2.76 Hemoglobin 9.6 Hematocrit 26.8 Mean Corpuscular Volume 97.0 Mean Corpuscular Hemoglobin 34.7 Mean Corpuscular Hemoglobin 35.8 Concent Red Cell Distribution Width 13.6 Platelet Count 406 Mean Platelet Volume 9.0 Neutrophils (%) (Auto) Lymphocytes (%) (Auto) Monocytes (%) (Auto) Eosinophils (%) (Auto) Basophils (%) (Auto) Neutrophils # (Auto) Lymphocytes # (Auto) Monocytes # (Auto) Eosinophils # (Auto) Basophils # (Auto) CBC Comment AUTO DIFF Differential Total Cells 100 Counted Neutrophils % (Manual) 73 Band Neutrophils % 7 Lymphocytes % 13 Monocytes % 7 Neutrophils # (Manual) 11.6 Differential Comment FINAL DIFF MANUAL Platelet Estimate NORMAL Platelet Morphology Comment NORMAL Target Cells 2+ Stomatocytes 2+ Sodium Level 133 Potassium Level 4.0 Chloride Level 99 Carbon Dioxide Level 20.6 Anion Gap 13 Blood Urea Nitrogen 9 Creatinine 0.45 Estimat Glomerular Filtration 138 Rate Random Glucose 57 Calcium Level 8.6 Total Bilirubin 22.6 Aspartate Amino Transf 373 (AST/SGOT) Alanine Aminotransferase 316 (ALT/SGPT) Alkaline Phosphatase 994 Total Protein 5.6 Albumin 2.1 Lipase 525 Tumor Marker Alpha Fetoprotein 4.8 Carcinoembryonic Antigen 10.1 CA 19-9 Antigen 8740.6 CA 125 Antigen 115.4 Imaging Last Impressions Cholangiopancreatography MRI 01/14/17 0000 Signed Impressions: Service Date/Time: Saturday, January 14, 2017 08:31 - CONCLUSION: 1. Significant intrahepatic and extrahepatic biliary ductal dilatation with no visualized mass on this noncontrast study. A small distal tumor or stricture could be present. 2. The pancreatic duct is at the upper limits of normal in size. There is no visualized pancreatic lesion. 3. Large simple cyst again noted in the liver. There is a smaller cyst in the left lobe. 4. Small to moderate-sized hiatal hernia. 5. The gallbladder is at the upper limits of normal in size with no evidence of cholelithiasis. Oren Garduno MD Abdomen/Pelvis CT 01/12/17 1716 Signed Impressions: Service Date/Time: January 19:16 - CONCLUSION: Abnormal common duct and distal pancreatic duct. MRCP would be of benefit Prominent gallbladder without obvious stones. Moody Washburn MD FACR Physical Exam HEENT: PERRL; normocephalic; atraumatic +Iicterus CHEST: CTA CARDIAC: RRR ABDOMEN: Soft, nondistended, RUQ TTP; no hepatosplenomegaly; bowel sounds are present in all four quadrants. EXTREMITIES: No clubbing, cyanosis, or edema. SKIN: Normal; no rash; no jaundice. MEDICAL EDUCATOR: No focal deficits; alert and oriented times three. (Isabelle Fonseca) Assessment and Plan Plan ASSESSMENT: - Painless jaundice/elevated LFTs. Pt with sudden onset decreased appetite, weight loss, jaundice, dark urine 1.5-2 weeks ago. She has lost weight LFTs with T. Bili 23.6, AST 430, ALT 405, Alk Phosph 1057 on admission. Lipase 573. Abdomen/Pelvis CT (01/12/17)---> Abnormal common duct and distal pancreatic duct. She denies any history of pancreatitis. She was drinking 4-5 beers daily up until 2 weeks ago when she no longer had the taste for it. S/P EUS found duodenal mucosal irregularity, dilated CBD and pancreatic duct ; ERCP not completed d/t duodenal stricture. MRCP 01-14--> significant intrahepatic and extrahepatic biliary ductal dilatation with no visualized mass, small distal tumor or stricture could be present pancreatic duct upperl imits normal size, GB upper limits normal size with no evidence cholelithiasis. PT with RUQ TTP today. elevated tumor markers CEA 10.1, CA 19-9 8740, CA 125 115. - Leukocytosis, low-grade fever. S/P one dose of zosyn. wbc slightly increased - Hyponatremia, hypokalemia per attending - History bladder cancer, status post resection 1.5 years ago[address] by Dr. Castillo. Recently seen for suspected blood in urine and he said she did not have any and sent her for outpatient labs. PLAN: - await biopsies - consult IR for PTC - oncology consult - clears - IV fluids - Supportive care - Further recommendations to follow based on results of above - Pt seen and examined by Dr. Garcia and myself and this note is written on his behalf (Isabelle Fonseca) Plan agree with above note, patient will need PTC. (Mora Garcia MD) Isabelle Fonseca Jan 14, 2017 15:25 Mora Garcia MD Jan 14, 2017 17:03
--- NOTE | 2017-01-14 17:08 | MB ---
cc: LARISSA MOBLEY M.D. DATE OF CONSULTATION 01/14/17 DATE OF : [address] Chip Rojas REASON FOR CONSULTATION Dr. Rojas requests a consultation for Mrs. Membreno regarding painless jaundice suspicious for underlying malignancy. HISTORY OF PRESENT ILLNESS Mrs. Membreno is a 71 year old woman with history of superficial bladder cancer under the care of Dr. Castillo. She presented to the emergency room with complaints of jaundice. For a week and a half she noticed her skin is jaundiced. She has had no appetite for about a week and lost some weight. She has always been thin. She had an evaluation being coordinated by Dr. Castillo with CT scan pending next week but felt too bad and came to the emergency room. She denies any fevers, chills or night sweats. She continues to smoke actively. She lives alone. She drinks alcohol regularly. She has five children in [place], [place]. She is contemplating moving in with her daughter recently. She came in with normocytic anemia with hemoglobin of 11.1. Platelet count is normal. White blood cell count is elevated. There are changes in red cell morphology consistent with alcohol use. Her total bilirubin in 2015 was 0.7. It is 23 at the time of admission. AST ALT are elevated. Alkaline phosphatase is 1000. Renal function is normal. GI was consulted. CT scan of the abdomen and pelvis shows abnormal common duct and distal pancreatic duct. There is prominent gallbladder without any stones. MRI shows significant intrahepatic and extra hepatic biliary duct dilatation with no visualized mass. The pancreatic duct in the upper limits of normal in size. There is a simple cyst in the liver and there is small to moderate size hiatal hernia. The gallbladder is distended in the upper limit of normal size with no gallstones. EGD with biopsy followed by endoscopic ultrasound was attempted. Unfortunately, Dr. Shahid was unable to traverse into the duodenum. 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 There is dilated pancreatic duct and common bile duct. It is unable to stent the lesion. She remains with increased bilirubin. Interventional radiology has been consulted. In the meantime, tumor markers were obtained. The CA 125 is elevated at 115, CA 19-9 is 8.700, CEA is 10. Alpha feto-protein is normal. For this reason, hematology oncology is consulted to rule out underlying malignancy was etiology of painless jaundice. The rest of her review of systems is negative. Her superficial bladder cancer is controlled. PAST MEDICAL HISTORY 1. Anxiety 2. Superficial bladder cancer 3. Chronic alcohol and tobacco use 4. Painless jaundice. PAST SURGICAL HISTORY 1. Abdominal surgery 2. Tonsillectomy SOCIAL HISTORY She rinks six pack daily. She smokes one pack per day. Denies any illicit drug use. FAMILY HISTORY Father of old age in his 80s. Mother of twisted bowel in her 70s. No family history of cancer. ALLERGIES NO KNOWN DRUG ALLERGIES MEDICATIONS Current, 1. IV fluid 2. Benadryl as needed PHYSICAL EXAMINATION VITAL SIGNS: Temperature 97.8, heart rate 103, respiratory rate 22, blood pressure 139/63, saturation 95%. GENERAL: Ms. Membreno is a slender 71 year old woman who looks older than stated age. She is awake, alert and oriented. She is able to provide her history. HEENT: Pupils are round, reactive to light and accommodation. Sclerae are icteric. She has a general jaundice hue. NECK: Supple. LUNGS: With coarse breath sounds CARDIOVASCULAR: Mild tachycardia. ABDOMEN: Benign LOWER EXTREMITIES: No edema. NEUROLOGIC: Nonfocal. LABORATORY DATA As described above. IMAGING STUDIES As described above. ASSESSMENT AND PLAN Mrs. Membreno is a 71 year old woman with multiple medical problems as described above. She comes in with one week history of painless jaundice. She has intra and extra hepatic biliary duct dilatation with no obvious mass. We discussed at length the concerning pathology for underlying pancreatic malignancy versus bile duct malignancy/cholangiocarcinoma. There is also suggestion of irregularity in the first part of the duodenum. Biopsies were obtained. We await final pathology to determine the nature of her condition. Interventional radiology is pending a percutaneous drain for the elevated bilirubin. We discussed completing her staging evaluation. I will obtain a CT of the chest to rule out primary lung. She has a smoker's cough. She has no intention f stopping smoking. Her bladder cancer did not encourage her to stop smoking. Her daughter is coming in from [place]. She is considering moving to [place] with her daughter to complete her evaluation as treatment and care would be easier in the presence of her family. She has moved down to [place] and is here. She is considering transferring, moving up to the [facility]. I will see her in follow up and further recommendations for treatment depends on the final pathology report and findings on the CT scan of the chest. MD MIA Madrigal/ /4:19 PM /4:29 PM MTDOsmar
[2017-01-14] MEDS: SODIUM CHLORIDE 0.9% FLUSH 10 ML FLUSH IV FLUSH SCH (20:39)
[2017-01-14] MEDS: diphenhydrAMINE HCL 50 MG CAP PO PRN (20:39)
[2017-01-14] MEDS: NS + KCL 20 MEQ INJ 1,000 ML IV SCH (23:00)
[2017-01-15] VITALS: BP 141/66; PULSE 100; RESP 18; TEMP 97.8; O2SAT 95
[2017-01-15 04:00] VITALS: BP 138/75; PULSE 99; RESP 16; TEMP 98; O2SAT 93
[2017-01-15 08:00] VITALS: BP 145/82; PULSE 101; RESP 18; TEMP 97.4; O2SAT 95
[2017-01-15] MEDS: SODIUM CHLORIDE 0.9% FLUSH 10 ML FLUSH IV FLUSH SCH ×2 (09:00→20:07)
--- NOTE | 2017-01-15 09:45 | RADRPT ---
EXAM DATE/TIME: 01/15/2017 08:38 [facility] COMPARISON: CT ABDOMEN & PELVIS W CONTRAST, January 12, 2017, 19:16. INDICATIONS : Cough and weight loss. Patient has biliary obstruction. Please evaluate for primary lung cancer. RADIATION DOSE: 3.33 CTDIvol (mGy) MEDICAL HISTORY : Hypertension. Gastroesophageal reflux disease. hematuria, weight loss, jaundice SURGICAL HISTORY : None. ENCOUNTER: Initial ACUITY: 3 days PAIN SCALE: 0/10 LOCATION: chest TECHNIQUE: Volumetric scanning of the chest was performed. Using automated exposure control and adjustment of t he mA and/or kV according to patient size, radiation dose was kept as low as reasonably achievable to obtain optimal diagnostic quality images. DICOM format image data is available electronically for r eview and comparison. Follow-up recommendations for detected pulmonary nodules are based at a minimum on nodule size and pa tient risk factors according to Fleischner Society Guidelines. FINDINGS: LUNGS: There is a large spiculated soft tissue mass in the right upper lobe measuring up to approximately 3. 7 x 3.8 cm in diameter. There is underlying anatomic emphysema with mild hyperinflation. There is ate lectasis along the anterior heart border. PLEURAE: There is a small left pleural effusion and minimal right pleural fluid identified. MEDIASTINUM: Pneumomediastinum is present extending from the anterior base of the heart into the superior mediasti num. There are several small pretracheal and para-aortic lymph nodes noted on this noncontrast study. There is no definite adenopathy. There is no pericardial effusion. AXILLAE: Within normal limits. No lymphadenopathy. MUSCULOSKELETAL: Within normal limits for patient age. Mild osteopenia and degenerative changes are noted. MISCELLANEOUS: Intrahepatic and extrahepatic biliary ductal dilatation is again visualized. Please see abdomen CT wi th contrast for further details. CONCLUSION: 1. 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 This would be amenable to CT-guided core biopsy. 2. Pneumomediastinum is present. 3. Small pretracheal and periaortic lymph nodes noted but no definite adenopathy on this noncontrast exam. 4. Small pleural effusions left greater than right. 5. Underlying emphysema. Oren Garduno MD on January 15, 2017 at 9:34 Board Certified Radiologist. This report was verified electronically.
--- NOTE | 2017-01-15 11:10 | HHI.PR ---
Subjective Remarks Follow-up jaundice. The patient reports only mild occasional cramping abdominal pain. Denies chest pain or dyspnea. Objective Vitals Vital Signs Date Time Temp Pulse Resp B/P Pulse Ox O2 Delivery O2 Flow Rate FiO2 01/15/17 08:00 97.4 101 18 145/82 95 01/15/17 04:00 Room Air 01/15/17 04:00 98.0 99 16 138/75 93 01/15/17 00:00 Room Air 01/15/17 00:00 97.8 100 18 141/66 95 01/14/17 20:00 98.4 94 18 133/62 95 01/14/17 20:00 97 01/14/17 20:00 Room Air 01/14/17 16:00 97.6 99 20 133/64 94 01/14/17 12:00 97.8 103 22 139/63 95 I/O 01/14/17 01/14/17 01/14/17 01/15/17 01/15/17 01/15/17 07:00 15:00 23:00 07:00 15:00 23:00 Intake Total 316 ml 720 ml 1188 ml 468 ml Balance 316 ml 720 ml 1188 ml 468 ml Intake Oral 0 ml 720 ml 600 ml 120 ml IV Total 316 ml 588 ml 348 ml # Voids 2 3 2 1 # Bowel Movements 0 0 0 Result Diagram: 01/14/17 0602 01/14/17 0602 Imaging Last Impressions Cholangiopancreatography MRI 01/14/17 0000 Signed Impressions: Service Date/Time: Saturday, January 14, 2017 08:31 - CONCLUSION: 1. Significant intrahepatic and extrahepatic biliary ductal dilatation with no visualized mass on this noncontrast study. A small distal tumor or stricture could be present. 2. The pancreatic duct is at the upper limits of normal in size. There is no visualized pancreatic lesion. 3. Large simple cyst again noted in the liver. There is a smaller cyst in the left lobe. 4. Small to moderate-sized hiatal hernia. 5. The gallbladder is at the upper limits of normal in size with no evidence of cholelithiasis. Oren Garduno MD Chest CT 01/14/17 0000 Signed Impressions: Service Date/Time: Sunday, January 15, 2017 08:38 - CONCLUSION: 1. Large spiculated soft tissue mass in the right upper lobe most characteristic of a primary bronchogenic carcinoma. This would be amenable to CT-guided core biopsy. 2. Pneumomediastinum is present. 3. Small pretracheal and periaortic lymph nodes noted but no definite adenopathy on this noncontrast exam. 4. Small pleural effusions left greater than right. 5. Underlying emphysema. Oren Garduno MD Abdomen/Pelvis CT 01/12/17 1716 Signed Impressions: Service Date/Time: January 19:16 - CONCLUSION: Abnormal common duct and distal pancreatic duct. MRCP would be of benefit Prominent gallbladder without obvious stones. Moody Washburn MD FACR Objective Remarks General: Thin female in no acute distress. Jaundiced. HEENT: Scleral icterus noted. Heart: Regular rate and rhythm. No murmur. Lungs: Clear to auscultation bilaterally. No wheezes, rales, or rhonchi. Breathing is nonlabored. Abdomen: Soft, nontender, nondistended. Extremities: No lower extremity edema. Psych: Alert and oriented. Procedures none Urinary Catheter: No Vascular Central Line Catheter: No A/P Problem List: (1) Jaundice ICD Code: R17 Status: Acute (2) Hyperbilirubinemia ICD Code: E80.6 Status: Acute (3) Transaminitis ICD Code: R74.0 Status: Acute (4) Leukocytosis ICD Code: D72.829 Status: Acute (5) Hyponatremia ICD Code: E87.1 Status: Acute (6) Mild anemia ICD Code: D64.9 Status: Acute (7) Lung mass ICD Code: R91.8 Status: Acute Assessment and Plan 1. Jaundice, painless: Total bilirubin, AST, & ALT elevated. Appreciate GI recommendations. S/P EGD with EUS. 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 S/P MRCP. Repeat labs are pending today. 2. Leukocytosis: No other signs of infection at this time. Labs are pending today. 3. Hyponatremia: Continue normal saline. Improving. 4. Normocytic anemia: Monitor labs. 5. DVT prophylaxis: SCDs, CHRIS hose. 6. Hypokalemia: Improved. 7. Lung mass: Large spiculated soft tissue mass in the right upper lobe most characteristic of a primary bronchogenic carcinoma. Will likely need CT-guided biopsy. Awaiting further recommendations from oncology. At the patient's request, I spoke via telephone with her daughter (Jasmyne Rubio ). The patient and her daughter were updated on the results of the chest CT. aJmie Rojas MD Jan 15, 2017 11:10
[2017-01-15] MEDS: NS + KCL 20 MEQ INJ 1,000 ML IV SCH (11:23)
[2017-01-15 12:00] VITALS: BP 142/70; PULSE 91; RESP 18; TEMP 97.5; O2SAT 96
--- NOTE | 2017-01-15 13:42 | HHI.GIFU ---
Subjective Remarks Lying in bed in no apparent distress. Denies nausea or vomiting. Reports mild diffuse abdominal pain. (Lamar Yo) Objective Vitals I&O Vital Signs Date Time Temp Pulse Resp B/P Pulse Ox O2 Delivery O2 Flow Rate FiO2 01/15/17 12:56 01/15/17 12:00 97.5 91 18 142/70 96 01/15/17 08:00 97.4 101 18 145/82 95 01/15/17 04:00 Room Air 01/15/17 04:00 98.0 99 16 138/75 93 01/15/17 00:00 Room Air 01/15/17 00:00 97.8 100 18 141/66 95 01/14/17 20:00 98.4 94 18 133/62 95 01/14/17 20:00 97 01/14/17 20:00 Room Air 01/14/17 16:00 97.6 99 20 133/64 94 I/O 01/14/17 01/14/17 01/14/17 01/15/17 01/15/17 01/15/17 07:00 15:00 23:00 07:00 15:00 23:00 Intake Total 316 ml 720 ml 1188 ml 468 ml Balance 316 ml 720 ml 1188 ml 468 ml Intake Oral 0 ml 720 ml 600 ml 120 ml IV Total 316 ml 588 ml 348 ml # Voids 2 3 2 1 # Bowel Movements 0 0 0 Imaging Last Impressions Cholangiopancreatography MRI 01/14/17 0000 Signed Impressions: Service Date/Time: Saturday, January 14, 2017 08:31 - CONCLUSION: 1. Significant intrahepatic and extrahepatic biliary ductal dilatation with no visualized mass on this noncontrast study. A small distal tumor or stricture could be present. 2. The pancreatic duct is at the upper limits of normal in size. There is no visualized pancreatic lesion. 3. Large simple cyst again noted in the liver. There is a smaller cyst in the left lobe. 4. Small to moderate-sized hiatal hernia. 5. The gallbladder is at the upper limits of normal in size with no evidence of cholelithiasis. Oren Garduno MD Chest CT 01/14/17 0000 Signed Impressions: Service Date/Time: Sunday, January 15, 2017 08:38 - CONCLUSION: 1. Large spiculated soft tissue mass in the right upper lobe most characteristic of a primary bronchogenic carcinoma. This would be amenable to CT-guided core biopsy. 2. Pneumomediastinum is present. 3. Small pretracheal and periaortic lymph nodes noted but no definite adenopathy on this noncontrast exam. 4. Small pleural effusions left greater than right. 5. Underlying emphysema. Oren Garduno MD Abdomen/Pelvis CT 01/12/17 1716 Signed Impressions: Service Date/Time: January 19:16 - CONCLUSION: Abnormal common duct and distal pancreatic duct. MRCP would be of benefit Prominent gallbladder without obvious stones. Moody Washburn MD FACR Physical Exam HEENT: PERRLA; normocephalic; atraumatic +Iicterus CHEST: CTA CARDIAC: RRR ABDOMEN: Soft, nondistended, RUQ TTP; no hepatosplenomegaly; bowel sounds are present x 4 EXTREMITIES: No clubbing, cyanosis, or edema. SKIN: Jaundice ACCOUNT COLLECTOR: No focal deficits; alert and oriented x 3 (Lamar Yo TRANSMISSION SUPERINTENDENT) Assessment and Plan Plan ASSESSMENT: - Painless jaundice/elevated LFTs. Pt with sudden onset decreased appetite, weight loss, jaundice, dark urine 1.5-2 weeks ago. She has lost weight LFTs with T. Bili 22.6, AST 373, ALT 316, Alk Phosph 994 Lipase 525. Abdomen/Pelvis CT (01/12/17)---> Abnormal common duct and distal pancreatic duct. She denies any history of pancreatitis. She was drinking 4-5 beers daily up until 2 weeks ago when she no longer had the taste for it. S/P EUS found duodenal mucosal irregularity, dilated CBD and pancreatic duct ; ERCP not completed d/t duodenal stricture. MRCP 01-14--> significant intrahepatic and extrahepatic biliary ductal dilatation with no visualized mass, small distal tumor or stricture could be present pancreatic duct upperl imits normal size, GB upper limits normal size with no evidence cholelithiasis. RUQ TTP today. Elevated tumor markers CEA 10.1, CA 19-9 8740, CA 125 115. Oncology following - Leukocytosis, low-grade fever. S/P one dose of zosyn. wbc trending up, 14.5 (01/14) - Hyponatremia, hypokalemia per attending - History bladder cancer, status post resection 1.5 years ago[address] Castillo. Recently seen for suspected blood in urine and he said she did not have any and sent her for outpatient labs. PLAN: - Await biopsies - Consult IR for PTC - Followed by Oncology - Clear liquid diet - IV fluids - Supportive care - Further recommendations to follow based on results of above Patient seen and examined by Dr. Shahid and myself and this note is written on his behalf. (Lamar Yo) Physician Comments Patient Seen and examined Agree with above Continue with current supportive care Monitor labs IR to proceed with PTC tomorrow with drainage CT of the chest showing a primary bronchogenic mass probable cancer Oncology on the case (Aj Shahid MD) Lamar Yo Jan 15, 2017 13:42 Aj Shahid MD Jan 15, 2017 22:02
--- NOTE | 2017-01-15 14:54 | PD.ONC.PN ---
Subjective Subjective Remarks Afebrile overnight Patient reports a chronic cough Denies chest pain or shortness of breath at rest Patient and daughter asking many questions about recently found lung mass Objective Data Date Time Temp Pulse Resp B/P Pulse Ox O2 Delivery O2 Flow Rate FiO2 01/15/17 12:56 01/15/17 12:00 97.5 91 18 142/70 96 01/15/17 08:00 97.4 101 18 145/82 95 01/15/17 04:00 Room Air 01/15/17 04:00 98.0 99 16 138/75 93 01/15/17 00:00 Room Air 01/15/17 00:00 97.8 100 18 141/66 95 01/14/17 20:00 98.4 94 18 133/62 95 01/14/17 20:00 97 01/14/17 20:00 Room Air 01/14/17 16:00 97.6 99 20 133/64 94 01/15/17 01/15/17 01/15/17 07:00 15:00 23:00 Intake Total 468 ml Balance 468 ml Result Diagram: 01/14/17 0602 01/14/17 0602 Imaging Studies Last Impressions Cholangiopancreatography MRI 01/14/17 0000 Signed Impressions: Service Date/Time: Saturday, January 14, 2017 08:31 - CONCLUSION: 1. Significant intrahepatic and extrahepatic biliary ductal dilatation with no visualized mass on this noncontrast study. A small distal tumor or stricture could be present. 2. The pancreatic duct is at the upper limits of normal in size. There is no visualized pancreatic lesion. 3. Large simple cyst again noted in the liver. There is a smaller cyst in the left lobe. 4. Small to moderate-sized hiatal hernia. 5. The gallbladder is at the upper limits of normal in size with no evidence of cholelithiasis. Oren Garduno MD Chest CT 01/14/17 0000 Signed Impressions: Service Date/Time: Sunday, January 15, 2017 08:38 - CONCLUSION: 1. Large spiculated soft tissue mass in the right upper lobe most characteristic of a primary bronchogenic carcinoma. This would be amenable to CT-guided core biopsy . 2. Pneumomediastinum is present. 3. Small pretracheal and periaortic lymph nodes noted but no definite adenopathy on this noncontrast exam. 4. Small pleural effusions left greater than right. 5. Underlying emphysema. Oren Garduno MD Abdomen/Pelvis CT 01/12/17 1716 Signed Impressions: Service Date/Time: January 19:16 - CONCLUSION: Abnormal common duct and distal pancreatic duct. MRCP would be of benefit Prominent gallbladder without obvious stones. Moody Washburn MD FACR Administered Medications Medications (Trade) Dose Ordered Sig/Jason Route PRN Reason Start Time Stop Time Status Last Admin Dose Admin Sodium Chloride (NS Flush) 2 ml BID IV FLUSH 01/12/17 21:00 01/15/17 09:00 Diphenhydramine HCl 25 mg 25 mg HS PRN PO INSOMNIA 01/12/17 23:30 01/14/17 20:39 Potassium Chloride/Sodium Chloride (NS + KCl 20 Meq Inj) 1,000 ml @ 42 mls/hr [id number] IV 01/13/17 11:45 01/14/17 23:00 Objective Remarks GENERAL: Elderly female resting in bed with daughter at bedside SKIN: Warm and dry. Jaundiced HEAD: Normocephalic. EYES: + scleral icterus. NECK: Supple, trachea midline. CARDIOVASCULAR: + S1/S2 RESPIRATORY: Clear anteriorly. Breathing unlabored at rest. GASTROINTESTINAL: Abdomen soft, mildly tender to palpation EXTREMITIES: No cyanosis, or edema. NEUROLOGICAL: No obvious focal deficit. Awake, alert, and oriented x3. Assessment/Plan Problem List: (1) Lung mass Status: Acute Plan: -- CT on 01/15 shows 3.8x 3.7cm large spiculated mass found in the upper R lung -- CT guided biopsy ordered. -- History of superficial bladder cancer, followed with Dr Castillo. -- Patient has painless jaundice suspicious for malignancy Assessment 71-year-old female with increasing jaundice admitted with abdominal pain Plan 1. Discussed with patient and her daughter the lung mass found on CT scan. 2. Brought in portable workstation and showed them images. 3. Discussed with pt that she will need a CT guided biopsy of mass to determine type of cancer so we can determine treatment. 4. NPO after midnight for biopsy. Attending Statement The exam, history, and the medical decision-making described in the above note were completed with the assistance of the mid-level provider. I reviewed and agree with the findings presented. I attest that I had a [id number] encounter with the patient on the same day, and personally performed and documented my assessment and findings in the medical record. Lengthy discussion with family the CT finding and concern for primary bronchogenic carcinoma. Pt and family's many questions answered. Advised them to consider where they want patient to be treated, as we will coordinate care. Pending CT guided biopsy. Discuss percutaneous drain for elevated bilirubin. Bette Portillo Jan 15, 2017 14:54 sEme Holt MD Jan 15, 2017 21:56
[2017-01-15 15:46] LABS: HEMATOCRIT 27.2 % (35.0-46.0); MEAN CELL VOLUME 98.1 FL (80.0-100.0); MEAN CORPUSCULAR HEMOGLOBIN 33.5 PG (27.0-34.0); MEAN CORPUSCULAR HGB CONC 34.1 % (32.0-36.0); PLATELET COUNT 454 TH/MM3 (150-450); RED BLOOD COUNT 2.77 MIL/MM3 (4.00-5.30); WHITE BLOOD COUNT 13.2 TH/MM3 (4.0-11.0)
[2017-01-15 16:00] VITALS: BP 153/73; PULSE 99; RESP 18; TEMP 99.1; O2SAT 97
[2017-01-15 16:08] LABS: HEMO FLAGS AUTO DIFF
[2017-01-15 16:09] LABS: ALT (GPT) 314 U/L (10-53); ANION GAP 10 MEQ/L (5-15); AST (GOT) 335 U/L (15-37); BICARBONATE 25.2 MEQ/L (21.0-32.0); BLOOD UREA NITROGEN 6 MG/DL (7-18); CHLORIDE 98 MEQ/L (98-107); GLOMERULAR FILTRATION RATE 131 ML/MIN (>89); POTASSIUM 3.2 MEQ/L (3.5-5.1); SODIUM (NA) 133 MEQ/L (136-145)
[2017-01-15 16:23] LABS: ALKALINE PHOSPHATASE 1099 U/L (45-117)
[2017-01-15 16:32] LABS: TOTAL BILIRUBIN ADULT 24.7 MG/DL (0.2-1.0)
[2017-01-15 17:23] LABS: BANDS 3 % (0-6); BASOPHILS 1 % (0-2); METAMYELOCYTES 1 % (0-1); NEUTROPHIL # MANUAL DIFF 10.4 TH/MM3 (1.8-7.7); POLYS (SEG NEUTROPHILS) 75 % (16-70); WBC DIFF SAMPLE 100
[2017-01-15 17:24] LABS: PLATELET ESTIMATE SMEAR NORMAL (NORMAL); PLATELET MORPHOLOGY NORMAL (NORMAL); SCAN/DIFF FINAL DIFF MANUAL
[2017-01-15 17:25] LABS: TARGET CELLS 2+ (NORMAL)
[2017-01-15 17:26] LABS: STOMATOCYTES 1+ (NORMAL)
[2017-01-15] MEDS: diphenhydrAMINE HCL 50 MG CAP PO PRN (20:06)
[2017-01-15 20:26] VITALS: PULSE 102
[2017-01-16] VITALS (7 sets, daily range): BP systolic 123–164; BP diastolic 58–80; PULSE 93–113; RESP 16–18; TEMP 97.9–100.4; O2SAT 94–96
[2017-01-16] MEDS: ALPRAZolam 0.25 MG TAB PO PRN ×2 (04:20→16:50)
[2017-01-16] MEDS: SODIUM CHLORIDE 0.9% FLUSH 10 ML FLUSH IV FLUSH SCH ×2 (09:00→20:40)
[2017-01-16 10:01] LABS: APTT (PATIENT) 38.4 SEC (24.3-30.1); INTERNATIONAL NORMALIZED RATIO 2.9 RATIO
[2017-01-16 10:05] LABS: HEMATOCRIT 27.5 % (35.0-46.0); MEAN CELL VOLUME 97.3 FL (80.0-100.0); MEAN CORPUSCULAR HEMOGLOBIN 33.9 PG (27.0-34.0); MEAN CORPUSCULAR HGB CONC 34.8 % (32.0-36.0); PLATELET COUNT 478 TH/MM3 (150-450); RED BLOOD COUNT 2.82 MIL/MM3 (4.00-5.30); RED CELL DISTRIBUTION WIDTH 14.4 % (11.6-17.2); WHITE BLOOD COUNT 14.5 TH/MM3 (4.0-11.0)
[2017-01-16 10:18] LABS: HEMO FLAGS AUTO DIFF
--- NOTE | 2017-01-16 10:19 | PD.ONC.PN ---
Subjective Subjective Remarks Tmax 100.4 overnight. Patient says she feels "wiped out," today. Waiting to go down for procedure in invasive radiology this morning. Objective Data Date Time Temp Pulse Resp B/P Pulse Ox O2 Delivery O2 Flow Rate FiO2 01/16/17 08:00 100.4 112 18 143/68 94 01/16/17 04:00 100.2 101 16 137/60 95 01/16/17 04:00 Room Air 01/16/17 00:00 Room Air 01/16/17 00:00 99.4 104 18 164/80 94 01/15/17 20:26 102 01/15/17 20:00 Room Air 01/15/17 18:08 Room Air 01/15/17 18:08 01/15/17 16:00 99.1 99 18 153/73 97 01/15/17 12:56 01/15/17 12:00 97.5 91 18 142/70 96 Result Diagram: 01/15/17 1425 01/15/17 1435 Laboratory Results Laboratory Tests Test 01/15/17 01/15/17 01/16/17 14:25 14:35 08:21 White Blood Count 13.2 TH/MM3 Red Blood Count 2.77 MIL/MM3 Hemoglobin 9.3 GM/DL Hematocrit 27.2 % Mean Corpuscular Volume 98.1 FL Mean Corpuscular Hemoglobin 33.5 PG Mean Corpuscular Hemoglobin 34.1 % Concent Red Cell Distribution Width 14.0 % Platelet Count 454 TH/MM3 Mean Platelet Volume 8.7 FL Neutrophils (%) (Auto) % Lymphocytes (%) (Auto) % Monocytes (%) (Auto) % Eosinophils (%) (Auto) % Basophils (%) (Auto) % Neutrophils # (Auto) TH/MM3 Lymphocytes # (Auto) TH/MM3 Monocytes # (Auto) TH/MM3 Eosinophils # (Auto) TH/MM3 Basophils # (Auto) TH/MM3 CBC Comment AUTO DIFF Differential Total Cells 100 Counted Neutrophils % (Manual) 75 % Band Neutrophils % 3 % Lymphocytes % 7 % Monocytes % 13 % Basophils % 1 % Neutrophils # (Manual) 10.4 TH/MM3 Metamyelocytes 1 % Differential Comment FINAL DIFF MANUAL Platelet Estimate NORMAL Platelet Morphology Comment NORMAL Target Cells 2+ Stomatocytes 1+ Sodium Level 133 MEQ/L Potassium Level 3.2 MEQ/L Chloride Level 98 MEQ/L Carbon Dioxide Level 25.2 MEQ/L Anion Gap 10 MEQ/L Blood Urea Nitrogen 6 MG/DL Creatinine 0.47 MG/DL Estimat Glomerular Filtration 131 ML/MIN Rate Random Glucose 103 MG/DL Calcium Level 8.8 MG/DL Total Bilirubin 24.7 MG/DL Aspartate Amino Transf 335 U/L (AST/SGOT) Alanine Aminotransferase 314 U/L (ALT/SGPT) Alkaline Phosphatase 1099 U/L Total Protein 5.6 GM/DL Albumin 2.1 GM/DL Prothrombin Time 34.0 SEC Prothromb Time International 2.9 RATIO Ratio Activated Partial 38.4 SEC Thromboplast Time Administered Medications Medications (Trade) Dose Ordered Sig/Jason Route PRN Reason Start Time Stop Time Status Last Admin Dose Admin Sodium Chloride (NS Flush) 2 ml BID IV FLUSH 01/12/17 21:00 01/15/17 20:07 Diphenhydramine HCl 25 mg 25 mg HS PRN PO INSOMNIA 01/12/17 23:30 01/15/17 20:06 Potassium Chloride/Sodium Chloride (NS + KCl 20 Meq Inj) 1,000 ml @ 42 mls/hr [id number] IV 01/13/17 11:45 01/14/17 23:00 Alprazolam (Xanax) 0.25 mg Q8H PRN PO ANXIETY 01/15/17 13:30 01/16/17 04:20 Objective Remarks GENERAL: Jaundiced elderly female supine in bed SKIN: Warm and dry. HEAD: Normocephalic. EYES: ++scleral icterus. No injection or drainage. NECK: Supple, trachea midline. CARDIOVASCULAR: Regular rate and rhythm RESPIRATORY: Breath sounds equal bilaterally. No accessory muscle use. GASTROINTESTINAL: Abdomen soft, non-tender, nondistended. EXTREMITIES: No cyanosis NEUROLOGICAL: No obvious focal deficit. Awake, alert, and oriented x3. Assessment/Plan Problem List: (1) Lung mass Status: Acute Plan: -- CT on 01/15 shows 3.8x 3.7cm large spiculated mass found in the upper R lung -- CT guided biopsy ordered. -- History of superficial bladder cancer, followed with Dr Castillo. -- Patient has painless jaundice suspicious for malignancy Assessment 71-year-old female with increasing jaundice admitted with abdominal pain Plan 1. CT guided lung mass biopsy in IR 2. PTC placement today 3. patient considering returning to [facility] for treatment. Attending Statement Agree with above. Robyn Stack Jan 16, 2017 10:19 Esme Holt MD Jan 16, 2017 21:58
[2017-01-16 10:52] LABS: ALT (GPT) 325 U/L (10-53); ANION GAP 12 MEQ/L (5-15); AST (GOT) 379 U/L (15-37); BICARBONATE 23.8 MEQ/L (21.0-32.0); BLOOD UREA NITROGEN 6 MG/DL (7-18); CHLORIDE 96 MEQ/L (98-107); GLOMERULAR FILTRATION RATE 131 ML/MIN (>89); MAGNESIUM 1.8 MG/DL (1.5-2.5); SODIUM (NA) 132 MEQ/L (136-145)
[2017-01-16 10:56] LABS: POTASSIUM 2.9 MEQ/L (3.5-5.1)
[2017-01-16 11:00] LABS: ALKALINE PHOSPHATASE 1180 U/L (45-117); TOTAL BILIRUBIN ADULT 25.4 MG/DL (0.2-1.0)
[2017-01-16 12:36] LABS: BANDS 4 % (0-6); BASOPHILS 1 % (0-2); NEUTROPHIL # MANUAL DIFF 11.9 TH/MM3 (1.8-7.7); POLYS (SEG NEUTROPHILS) 78 % (16-70); WBC DIFF SAMPLE 100
[2017-01-16 12:37] LABS: PLATELET ESTIMATE SMEAR HIGH (NORMAL); PLATELET MORPHOLOGY ENLARGED (NORMAL); SCAN/DIFF FINAL DIFF MANUAL; TARGET CELLS 2+ (NORMAL)
[2017-01-16 12:38] LABS: STOMATOCYTES 1+ (NORMAL)
--- NOTE | 2017-01-16 14:54 | HHI.PR ---
Subjective Remarks Follow-up jaundice, lung cancer. The patient states that she feels okay today. Denies abdominal pain, dyspnea. Does report cough, hemoptysis. Objective Vitals Vital Signs Date Time Temp Pulse Resp B/P Pulse Ox O2 Delivery O2 Flow Rate FiO2 01/16/17 12:00 98.5 113 18 126/59 95 01/16/17 08:00 100.4 112 18 143/68 94 01/16/17 04:00 100.2 101 16 137/60 95 01/16/17 04:00 Room Air 01/16/17 00:00 Room Air 01/16/17 00:00 99.4 104 18 164/80 94 01/15/17 20:26 102 01/15/17 20:00 Room Air 01/15/17 18:08 Room Air 01/15/17 18:08 01/15/17 16:00 99.1 99 18 153/73 97 I/O 01/15/17 01/15/17 01/15/17 01/16/17 01/16/17 01/16/17 06:59 14:59 22:59 06:59 14:59 22:59 Intake Total 468 ml 720 ml 680 ml 0 ml Balance 468 ml 720 ml 680 ml 0 ml Intake Oral 120 ml 720 ml 480 ml 0 ml IV Total 348 ml 200 ml # Voids 1 2 1 2 # Bowel Movements 0 0 0 0 Result Diagram: 01/16/1782001/16/17820 Imaging Last Impressions Cholangiopancreatography MRI 01/14/17 0000 Signed Impressions: Service Date/Time: Saturday, January 14, 2017 08:31 - CONCLUSION: 1. Significant intrahepatic and extrahepatic biliary ductal dilatation with no visualized mass on this noncontrast study. A small distal tumor or stricture could be present. 2. The pancreatic duct is at the upper limits of normal in size. There is no visualized pancreatic lesion. 3. Large simple cyst again noted in the liver. There is a smaller cyst in the left lobe. 4. Small to moderate-sized hiatal hernia. 5. The gallbladder is at the upper limits of normal in size with no evidence of cholelithiasis. Oren Garduno MD Chest CT 01/14/17 0000 Signed Impressions: Service Date/Time: Sunday, January 15, 2017 08:38 - CONCLUSION: 1. Large spiculated soft tissue mass in the right upper lobe most characteristic of a primary bronchogenic carcinoma. This would be amenable to CT-guided core biopsy. 2. Pneumomediastinum is present. 3. Small pretracheal and periaortic lymph nodes noted but no definite adenopathy on this noncontrast exam. 4. Small pleural effusions left greater than right. 5. Underlying emphysema. Oren Garduno MD Abdomen/Pelvis CT 01/12/17 7736 Signed Impressions: Service Date/Time: January 19:16 - CONCLUSION: Abnormal common duct and distal pancreatic duct. MRCP would be of benefit Prominent gallbladder without obvious stones. Moody Washburn MD FACR Objective Remarks General: Thin female in no acute distress. Jaundiced. HEENT: Scleral icterus noted. Heart: Regular rate and rhythm. No murmur. Lungs: Clear to auscultation bilaterally. No wheezes, rales, or rhonchi. Breathing is nonlabored. Abdomen: Soft, nontender, nondistended. Extremities: No lower extremity edema. Psych: Alert and oriented. Procedures none Urinary Catheter: No Vascular Central Line Catheter: No A/P Problem List: (1) Jaundice ICD Code: R17 Status: Acute (2) Hyperbilirubinemia ICD Code: E80.6 Status: Acute (3) Transaminitis ICD Code: R74.0 Status: Acute (4) Leukocytosis ICD Code: D72.829 Status: Acute (5) Hyponatremia ICD Code: E87.1 Status: Acute (6) Mild anemia ICD Code: D64.9 Status: Acute (7) Lung mass ICD Code: R91.8 Status: Acute Assessment and Plan 1. Jaundice, painless: Total bilirubin, AST, & ALT elevated. Appreciate GI recommendations. S/P EGD with EUS. 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 S/P MRCP. Repeat labs are pending today. 2. Leukocytosis: No other signs of infection at this time. Follow labs. 3. Hyponatremia: Continue normal saline. Sodium level is stable. 4. Normocytic anemia: Monitor labs. 5. DVT prophylaxis: SCDs, CHRIS hose. 6. Hypokalemia: Supplement potassium. Recheck labs in the morning. 7. Lung mass: Large spiculated soft tissue mass in the right upper lobe most characteristic of a primary bronchogenic carcinoma. CT-guided biopsy ordered. Appreciate oncology recommendations. CEA, CA-19-9, and CA-125 are elevated. 8. Coagulopathy: INR is elevated. FFP ordered. Procedures on hold at this time. Jamie Rojas MD Jan 16, 2017 14:54
[2017-01-16] MEDS: POTASSIUM CHLOR 20 MEQ PREMIX 100 ML IV SCH ×2 (15:53→16:50)
[2017-01-16] MEDS: NS + KCL 20 MEQ INJ 1,000 ML IV SCH (15:54)
[2017-01-16] MEDS: diphenhydrAMINE HCL 50 MG CAP PO PRN (20:39)
[2017-01-16] MEDS ORDERED: PHYTONADIONE 10 MG/ML VIAL SQ ONE (22:15)
[2017-01-17] VITALS (15 sets, daily range): BP systolic 118–162; BP diastolic 59–76; PULSE 81–100; RESP 16–20; TEMP 97.5–99.7; O2SAT 93–98
[2017-01-17] MEDS: SODIUM CHLORIDE 0.9% FLUSH 10 ML FLUSH IV FLUSH SCH ×2 (08:06→20:23)
[2017-01-17 08:29] LABS: INTERNATIONAL NORMALIZED RATIO 1.5 RATIO; PROTHROMBIN TIME - PATIENT 16.8 SEC (9.8-11.6)
[2017-01-17 08:41] LABS: HEMATOCRIT 25.1 % (35.0-46.0); MEAN CELL VOLUME 97.3 FL (80.0-100.0); MEAN CORPUSCULAR HEMOGLOBIN 33.9 PG (27.0-34.0); MEAN CORPUSCULAR HGB CONC 34.8 % (32.0-36.0); PLATELET COUNT 460 TH/MM3 (150-450); RED BLOOD COUNT 2.58 MIL/MM3 (4.00-5.30); RED CELL DISTRIBUTION WIDTH 14.4 % (11.6-17.2)
[2017-01-17 08:42] LABS: HEMO FLAGS AUTO DIFF
[2017-01-17 08:50] LABS: ANION GAP 10 MEQ/L (5-15); AST (GOT) 327 U/L (15-37); BICARBONATE 22.7 MEQ/L (21.0-32.0); CHLORIDE 101 MEQ/L (98-107); GLOMERULAR FILTRATION RATE 145 ML/MIN (>89); SODIUM (NA) 134 MEQ/L (136-145)
[2017-01-17 08:53] LABS: BLOOD UREA NITROGEN 7 MG/DL (7-18)
[2017-01-17 09:04] LABS: ALKALINE PHOSPHATASE 1063 U/L (45-117); ALT (GPT) 287 U/L (10-53); TOTAL BILIRUBIN ADULT 23.7 MG/DL (0.2-1.0)
[2017-01-17 09:31] LABS: BANDS 12 % (0-6); MYELOCYTES 1 % (0-0); POLYS (SEG NEUTROPHILS) 70 % (16-70); WBC DIFF SAMPLE 100
[2017-01-17 09:32] LABS: PLATELET ESTIMATE SMEAR HIGH (NORMAL); PLATELET MORPHOLOGY ENLARGED (NORMAL); SCAN/DIFF FINAL DIFF MANUAL; TARGET CELLS 3+ (NORMAL)
--- NOTE | 2017-01-17 10:46 | PD.ONC.PN ---
Subjective Subjective Remarks Afebrile overnight. Patient's procedures were held yesterday d/t elevated INR. Today she is scheduled to undergo PTC, possible CT guided lung biopsy tomorrow. Objective Data Date Time Temp Pulse Resp B/P Pulse Ox O2 Delivery O2 Flow Rate FiO2 01/17/17 08:00 98.3 94 18 135/59 97 01/17/17 06:57 98.8 97 18 126/60 95 01/17/17 06:40 99.7 100 20 128/59 94 01/17/17 04:00 98.4 100 16 130/60 95 01/17/17 00:00 99.2 99 18 154/67 98 01/16/17 20:00 98.6 93 16 123/58 95 01/16/17 19:45 Room Air 01/16/17 19:05 103 01/16/17 16:00 97.9 98 18 133/66 96 01/16/17 16:00 96 Room Air 01/16/17 12:00 98.5 113 18 126/59 95 01/17/17 01/17/17 01/17/17 07:00 15:00 23:00 Intake Total 120 ml Balance 120 ml Result Diagram: 01/17/17 0732 01/17/17 0732 Laboratory Results Laboratory Tests Test 01/16/17 01/16/17 01/17/17 13:06 15:04 07:32 Blood Type A POSITIVE A POSITIVE Blood Bank Comment White Blood Count 12.0 TH/MM3 Red Blood Count 2.58 MIL/MM3 Hemoglobin 8.8 GM/DL Hematocrit 25.1 % Mean Corpuscular Volume 97.3 FL Mean Corpuscular Hemoglobin 33.9 PG Mean Corpuscular Hemoglobin 34.8 % Concent Red Cell Distribution Width 14.4 % Platelet Count 460 TH/MM3 Mean Platelet Volume 9.6 FL Neutrophils (%) (Auto) % Lymphocytes (%) (Auto) % Monocytes (%) (Auto) % Eosinophils (%) (Auto) % Basophils (%) (Auto) % Neutrophils # (Auto) TH/MM3 Lymphocytes # (Auto) TH/MM3 Monocytes # (Auto) TH/MM3 Eosinophils # (Auto) TH/MM3 Basophils # (Auto) TH/MM3 CBC Comment AUTO DIFF Differential Total Cells 100 Counted Neutrophils % (Manual) 70 % Band Neutrophils % 12 % Lymphocytes % 11 % Monocytes % 6 % Neutrophils # (Manual) 10.0 TH/MM3 Myelocytes 1 % Differential Comment FINAL DIFF MANUAL Platelet Estimate HIGH Platelet Morphology Comment ENLARGED Target Cells 3+ Prothrombin Time 16.8 SEC Prothromb Time International 1.5 RATIO Ratio Sodium Level 134 MEQ/L Potassium Level 3.0 MEQ/L Chloride Level 101 MEQ/L Carbon Dioxide Level 22.7 MEQ/L Anion Gap 10 MEQ/L Blood Urea Nitrogen 7 MG/DL Creatinine 0.43 MG/DL Estimat Glomerular Filtration 145 ML/MIN Rate Random Glucose 82 MG/DL Calcium Level 8.4 MG/DL Total Bilirubin 23.7 MG/DL Aspartate Amino Transf 327 U/L (AST/SGOT) Alanine Aminotransferase 287 U/L (ALT/SGPT) Alkaline Phosphatase 1063 U/L Total Protein 5.5 GM/DL Albumin 2.0 GM/DL Administered Medications Medications (Trade) Dose Ordered Sig/Jason Route PRN Reason Start Time Stop Time Status Last Admin Dose Admin Sodium Chloride (NS Flush) 2 ml BID IV FLUSH 01/12/17 21:00 01/15/17 20:07 Diphenhydramine HCl 25 mg 25 mg HS PRN PO INSOMNIA 01/12/17 23:30 01/16/17 20:39 Potassium Chloride/Sodium Chloride (NS + KCl 20 Meq Inj) 1,000 ml @ 42 mls/hr [id number] IV 01/13/17 11:45 01/16/17 15:54 Alprazolam (Xanax) 0.25 mg Q8H PRN PO ANXIETY 01/15/17 13:30 01/16/17 16:50 Objective Remarks GENERAL: Jaundiced elderly female upright in bed. SKIN: Warm and dry. +jaundice HEAD: Normocephalic. EYES: ++scleral icterus. No injection or drainage. NECK: Supple, trachea midline. CARDIOVASCULAR: Regular rate and rhythm RESPIRATORY: Breath sounds equal bilaterally. No accessory muscle use. GASTROINTESTINAL: Abdomen soft, non-tender, nondistended. EXTREMITIES: No cyanosis NEUROLOGICAL: awake and alert, normal speech. Assessment/Plan Problem List: (1) Lung mass Status: Acute Plan: -- CT on 01/15 shows 3.8x 3.7cm large spiculated mass found in the upper R lung -- CT guided biopsy ordered. -- History of superficial bladder cancer, followed with Dr Jonathan. (2) Hyperbilirubinemia Status: Acute Plan: --undergoing PTC in IR 01/17 -- EUS--> benign duodenal stricture, duodenal mucosal irregularity, dilated pancreatic duct; dilated common bile duct --ERCP --> not completed d/t duodenal stricture. --MRCP 01-14--> significant intrahepatic and extrahepatic biliary ductal dilatation with no visualized mass, small distal tumor or stricture could be present pancreatic duct upper limits normal size, GB upper limits normal size with no evidence cholelithiasis. Assessment 71-year-old female with increasing jaundice admitted with abdominal pain Plan 1. CT guided lung mass biopsy in IR tomorrow 2. PTC placement today 3. monitor bilirubin, CBC Robyn Stack Jan 17, 2017 10:46
[2017-01-17] MEDS: NS + KCL 20 MEQ INJ 1,000 ML IV SCH (11:01)
[2017-01-17] MEDS: POTASSIUM CHLOR 20 MEQ PREMIX 100 ML IV SCH ×2 (11:45→18:00)
--- NOTE | 2017-01-17 11:45 | HHI.PR ---
Subjective Remarks Follow up lung mass, jaundice. Patient denies pain. States that she feels "very weak". Objective Vitals Vital Signs Date Time Temp Pulse Resp B/P Pulse Ox O2 Delivery O2 Flow Rate FiO2 01/17/17 08:00 98.3 94 18 135/59 97 01/17/17 06:57 98.8 97 18 126/60 95 01/17/17 06:40 99.7 100 20 128/59 94 01/17/17 04:00 98.4 100 16 130/60 95 01/17/17 00:00 99.2 99 18 154/67 98 01/16/17 20:00 98.6 93 16 123/58 95 01/16/17 19:45 Room Air 01/16/17 19:05 103 01/16/17 16:00 97.9 98 18 133/66 96 01/16/17 16:00 96 Room Air 01/16/17 12:00 98.5 113 18 126/59 95 I/O 01/16/17 01/16/17 01/16/17 01/17/17 01/17/17 01/17/17 06:59 14:59 22:59 06:59 14:59 22:59 Intake Total 0 ml 480 ml 240 ml 120 ml Balance 0 ml 480 ml 240 ml 120 ml Intake Oral 0 ml 480 ml 240 ml 120 ml # Voids 2 2 1 # Bowel Movements 0 1 0 Result Diagram: 01/17/17 0732 01/17/17 0732 Imaging Last Impressions Cholangiopancreatography MRI 01/14/17 0000 Signed Impressions: Service Date/Time: Saturday, January 14, 2017 08:31 - CONCLUSION: 1. Significant intrahepatic and extrahepatic biliary ductal dilatation with no visualized mass on this noncontrast study. A small distal tumor or stricture could be present. 2. The pancreatic duct is at the upper limits of normal in size. There is no visualized pancreatic lesion. 3. Large simple cyst again noted in the liver. There is a smaller cyst in the left lobe. 4. Small to moderate-sized hiatal hernia. 5. The gallbladder is at the upper limits of normal in size with no evidence of cholelithiasis. Oren Garduno MD Chest CT 01/14/17 0000 Signed Impressions: Service Date/Time: Sunday, January 15, 2017 08:38 - CONCLUSION: 1. Large spiculated soft tissue mass in the right upper lobe most characteristic of a primary bronchogenic carcinoma. This would be amenable to CT-guided core biopsy. 2. Pneumomediastinum is present. 3. Small pretracheal and periaortic lymph nodes noted but no definite adenopathy on this noncontrast exam. 4. Small pleural effusions left greater than right. 5. Underlying emphysema. Oren Garduno MD Abdomen/Pelvis CT 01/12/17 1716 Signed Impressions: Service Date/Time: January 19:16 - CONCLUSION: Abnormal common duct and distal pancreatic duct. MRCP would be of benefit Prominent gallbladder without obvious stones. Moody Washburn MD FACR Objective Remarks General: Thin female in no acute distress. Jaundiced. HEENT: Scleral icterus noted. Heart: Regular rate and rhythm. No murmur. Lungs: Clear to auscultation bilaterally. No wheezes, rales, or rhonchi. Breathing is nonlabored. Abdomen: Soft, nontender, nondistended. Extremities: No lower extremity edema. Psych: Alert and oriented. Procedures none Urinary Catheter: No Vascular Central Line Catheter: No A/P Problem List: (1) Jaundice ICD Code: R17 Status: Acute (2) Hyperbilirubinemia ICD Code: E80.6 Status: Acute (3) Transaminitis ICD Code: R74.0 Status: Acute (4) Leukocytosis ICD Code: D72.829 Status: Acute (5) Hyponatremia ICD Code: E87.1 Status: Acute (6) Mild anemia ICD Code: D64.9 Status: Acute (7) Lung mass ICD Code: R91.8 Status: Acute Assessment and Plan 1. Jaundice, painless: Total bilirubin, AST, & ALT elevated. Appreciate GI recommendations. S/P EGD with EUS. 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 S/P MRCP. IR for PTC biliary drain today. 2. Leukocytosis: No other signs of infection at this time. Follow labs. WBCs trending down. 3. Hyponatremia: Continue normal saline. Sodium level is stable. 4. Normocytic anemia: Monitor labs. 5. DVT prophylaxis: SCDs, CHRIS hose. 6. Hypokalemia: Supplement potassium. Recheck labs in the morning. 7. Lung mass: Large spiculated soft tissue mass in the right upper lobe most characteristic of a primary bronchogenic carcinoma. CT-guided biopsy ordered. Appreciate oncology recommendations. CEA, CA-19-9, and CA-125 are elevated. 8. Coagulopathy: INR is 1.5. FFP ordered. Jamie Rojas MD Jan 17, 2017 11:44
--- NOTE | 2017-01-17 12:14 | HHI.GIFU ---
Subjective Remarks Resting in bed. Denies any nausea/vomiting/abdominal pain. Going down for IR today for PTC. (Fouzia Baxter) Objective Vitals I&O Vital Signs Date Time Temp Pulse Resp B/P Pulse Ox O2 Delivery O2 Flow Rate FiO2 01/17/17 08:00 98.3 94 18 135/59 97 01/17/17 06:57 98.8 97 18 126/60 95 01/17/17 06:40 99.7 100 20 128/59 94 01/17/17 04:00 98.4 100 16 130/60 95 01/17/17 00:00 99.2 99 18 154/67 98 01/16/17 20:00 98.6 93 16 123/58 95 01/16/17 19:45 Room Air 01/16/17 19:05 103 01/16/17 16:00 97.9 98 18 133/66 96 01/16/17 16:00 96 Room Air I/O 01/16/17 01/16/17 01/16/17 01/17/17 01/17/17 01/17/17 06:59 14:59 22:59 06:59 14:59 22:59 Intake Total 0 ml 480 ml 240 ml 120 ml Balance 0 ml 480 ml 240 ml 120 ml Intake Oral 0 ml 480 ml 240 ml 120 ml # Voids 2 2 1 # Bowel Movements 0 1 0 Laboratory Laboratory Tests Test 01/16/17 01/16/17 01/17/17 13:06 15:04 07:32 Blood Type A POSITIVE A POSITIVE Blood Bank Comment White Blood Count 12.0 Red Blood Count 2.58 Hemoglobin 8.8 Hematocrit 25.1 Mean Corpuscular Volume 97.3 Mean Corpuscular Hemoglobin 33.9 Mean Corpuscular Hemoglobin 34.8 Concent Red Cell Distribution Width 14.4 Platelet Count 460 Mean Platelet Volume 9.6 Neutrophils (%) (Auto) Lymphocytes (%) (Auto) Monocytes (%) (Auto) Eosinophils (%) (Auto) Basophils (%) (Auto) Neutrophils # (Auto) Lymphocytes # (Auto) Monocytes # (Auto) Eosinophils # (Auto) Basophils # (Auto) CBC Comment AUTO DIFF Differential Total Cells 100 Counted Neutrophils % (Manual) 70 Band Neutrophils % 12 Lymphocytes % 11 Monocytes % 6 Neutrophils # (Manual) 10.0 Myelocytes 1 Differential Comment FINAL DIFF MANUAL Platelet Estimate HIGH Platelet Morphology Comment ENLARGED Target Cells 3+ Prothrombin Time 16.8 Prothromb Time International 1.5 Ratio Sodium Level 134 Potassium Level 3.0 Chloride Level 101 Carbon Dioxide Level 22.7 Anion Gap 10 Blood Urea Nitrogen 7 Creatinine 0.43 Estimat Glomerular Filtration 145 Rate Random Glucose 82 Calcium Level 8.4 Total Bilirubin 23.7 Aspartate Amino Transf 327 (AST/SGOT) Alanine Aminotransferase 287 (ALT/SGPT) Alkaline Phosphatase 1063 Total Protein 5.5 Albumin 2.0 Imaging Last Impressions Cholangiopancreatography MRI 01/14/17 0000 Signed Impressions: Service Date/Time: Saturday, January 14, 2017 08:31 - CONCLUSION: 1. Significant intrahepatic and extrahepatic biliary ductal dilatation with no visualized mass on this noncontrast study. A small distal tumor or stricture could be present. 2. The pancreatic duct is at the upper limits of normal in size. There is no visualized pancreatic lesion. 3. Large simple cyst again noted in the liver. There is a smaller cyst in the left lobe. 4. Small to moderate-sized hiatal hernia. 5. The gallbladder is at the upper limits of normal in size with no evidence of cholelithiasis. Oren Garduno MD Chest CT 01/14/17 0000 Signed Impressions: Service Date/Time: Sunday, January 15, 2017 08:38 - CONCLUSION: 1. Large spiculated soft tissue mass in the right upper lobe most characteristic of a primary bronchogenic carcinoma. This would be amenable to CT-guided core biopsy. 2. Pneumomediastinum is present. 3. Small pretracheal and periaortic lymph nodes noted but no definite adenopathy on this noncontrast exam. 4. Small pleural effusions left greater than right. 5. Underlying emphysema. Oren Garduno MD Abdomen/Pelvis CT 01/12/17 1716 Signed Impressions: Service Date/Time: January 19:16 - CONCLUSION: Abnormal common duct and distal pancreatic duct. MRCP would be of benefit Prominent gallbladder without obvious stones. Moody Washburn MD FACR Physical Exam HEENT: Normocephalic; atraumatic +icterus CHEST: CTA CARDIAC: RRR ABDOMEN: Soft, nondistended, RUQ tenderness on exam; no hepatosplenomegaly; bowel sounds are present x 4 EXTREMITIES: No clubbing, cyanosis, or edema. 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 Pt with sudden onset decreased appetite, weight loss, jaundice, dark urine 1.5-2 weeks ago. She has lost weight Abdomen/Pelvis CT (01/12/17)---> Abnormal common duct and distal pancreatic duct. She denies any history of pancreatitis. She was drinking 4-5 beers daily up until 2 weeks ago when she no longer had the taste for it. S /P EUS/Unsuccessful ERCP (01/13/17)----> found duodenal mucosal irregularity, dilated CBD and pancreatic duct; ERCP not completed d/t duodenal stricture. MRCP ()-----> 1. Significant intrahepatic and extrahepatic biliary ductal dilatation with no visualized mass on this noncontrast study. A small distal tumor or stricture could be present. 2. The pancreatic duct is at the upper limits of normal in size. There is no visualized pancreatic lesion. 3. Large simple cyst again noted in the liver. There is a smaller cyst in the left lobe. 4. Small to moderate-sized hiatal hernia. 5. The gallbladder is at the upper limits of normal in size with no evidence of cholelithiasis. Elevated tumor markers CA 19-9 8740, CEA 10.1, CA 125 115. Oncology following. Going for PTC with IR today, but receiving Vit. K/FFP prior to procedure for elevated INR. - Large RUL Lung mass. Chest CT (01/14/17)----> 1. Large spiculated soft tissue mass in the right upper lobe most characteristic of a primary bronchogenic carcinoma. This would be amenable to CT-guided core biopsy. 2. Pneumomediastinum is present. 3. Small pretracheal and periaortic lymph nodes noted but no definite adenopathy on this noncontrast exam. 4. Small pleural effusions left greater than right. 5. Underlying emphysema. Plan is for CT guided lung biopsy tomorrow. Oncology following. - Duodenal mucosa irregularity, bx pending. - Leukocytosis, low-grade fever. S/P one dose of zosyn. wbc 12.0 - Hyponatremia, hypokalemia per attending - History bladder cancer, status post resection 1.5 years ago[address] Castillo. Recently seen for suspected blood in urine and he said she did not have any and sent her for outpatient labs. PLAN: - Plan is for PTC by IR today - Await pathology from duodenum - NPO for procedure - Getting FFP, Vit. K for procedure today - Plan is for lung biopsy tomorrow - Monitor labs - Transfuse as necessary - IV fluids - Supportive care - Further recommendations to follow based on results of above - Patient seen and examined by Dr. Shahid and myself and this note is written on his behalf. (Fouzia Baxter) Physician Comments Patient seen and examined Agree with above Continue current supportive care Monitor labs Biliary drain was successful and draining well and it was noted that there was compression on the bile duct at the level of the pancreatic head suggesting pancreatic mass Tomorrow patient going for lung biopsy Biopsy from the duodenum unremarkable for malignancy (Aj Shahid MD) Fouzia Baxter Jan 17, 2017 12:14 Aj Shahid MD Jan 17, 2017 19:18
[2017-01-17 12:44] LABS: APTT (PATIENT) 30.6 SEC (24.3-30.1); INTERNATIONAL NORMALIZED RATIO 1.2 RATIO; PROTHROMBIN TIME - PATIENT 13.4 SEC (9.8-11.6)
[2017-01-17] MEDS ORDERED: LEVOFLOXACIN 500 MG PREMIX INJ 100 ML IV ONE (13:50)
[2017-01-17] MEDS ORDERED: fentaNYL CITRATE 250 MCG/5 ML AMP ONE (13:50)
[2017-01-17] MEDS ORDERED: MIDAZOLAM HCL 2 MG/2 ML VIAL ONE ×2 (13:50)
--- NOTE | 2017-01-17 14:30 | PD.RAD ---
Post Procedure Progress Note Pre Procedure Diagnosis: (1) Hyperbilirubinemia Post Procedure Diagnosis: (1) Hyperbilirubinemia Procedure Date: Jan 17, 2017 Supervising Radiologist: Kvng Craft JR Proceduralist/Assist: Becki Moyer, RT(R)(CV), Ruy Luque RT(R) Anesthesia: Conscious Sedation Plan of Activity Patient to Unit: ROPU Patient Condition: Good See PACS Report for procedural detail/treatment Drainage Procedure Procedure 1 Imaging Guidance: Fluoroscopy, Ultrasound Side: Right Procedure Type: Biliary Drainage Procedure: Placement Citizen Of [place]: 8 Fluid Description: Bilious Findings: Int/ext biliary drain placed. Obstruction at the ampulla. No stones seen. Clear bile noted. Plan Once Tbili approaches normal levels, can consider capping the tube for internal drainage. Jr. Venancio,Kvng Ricketts MD Jan 17, 2017 14:30
[2017-01-17] MEDS ORDERED: IOHEXOL 350 MG/ML 100 ML BTL (for RAD DIAG) OTHER ONE (14:44)
--- NOTE | 2017-01-17 16:04 | RADRPT ---
EXAM DATE/TIME: 01/17/2017 13:27 [facility] COMPARISON: No previous studies available for comparison. INDICATIONS : Patient with abdomenal pain and jaundice. MEDICAL HISTORY : 1.carcinoma bladder 2. lung mass 3.smoker SURGICAL HISTORY : 1. Cystoscopy 2. bladder tumor resection ENCOUNTER: Initial ACUITY: 2 weeks PAIN SCORE: 2/10 LOCATION: abdomin FLUORO TIME: 6.3 minutes IMAGE SERIES: 2 SEDATION TIME: 20 minutes CONTRAST: 30 cc Omnipaque (iohexol) 350 MEDICATION(S): 1.) 4 mg midazolam (Versed) IV 2.) 200 mcg fentanyl (Sublimaze) IV Prophylactic antibiotics were administered with appropriate pre-procedure timing. DEVICE(S): 1.) 8 Maldivian biliary drain PROCEDURE : 1. Ultrasound guided puncture of the biliary tree. 2. Percutaneous antegrade cholangiogram. 3. Biliary stent placement. 4. Conscious sedation with continuous EKG and oximetry monitoring. The risks, benefits and alternatives to the procedure were explained and verbal and written consent w as obtained. The site was prepped in sterile fashion. Full sterile technique was used, including ca p, mask, sterile gloves and gown and a large sterile sheet. Hand hygiene and 2% chlorhexidine and/or betadine/alcohol prep was utilized per protocol for cutaneous antisepsis. The skin and subcutaneous tissues were infiltrated with local anesthetic solution. I reviewed the patient's prior MRI and CT. Note is made of a large cyst involving the right lobe. Car e was taken to avoid the cyst during the access. With ultrasound and fluoroscopic guidance the biliar y tree was punctured with a 22 gauge Chiba needle and the biliary tree was opacified. A more peripher al access was felt prudent and therefore a peripheral right biliary radical was accessed with a Chiba needle. The tract was injected utilizing a 4 Maldivian catheter and [employer]. This shows the tract does not course through the hepatic cyst. An Accustick set was used to gain access to the biliary tree and a guidewire was passed into the duodenum. A formal angiogram show significant dilatation of the biliary tree. There is an obstruction at the level of the pancreatic head approaching the ampulla where ther e is quick tapering of the duct. No stone. Serial dilatation was performed to accept the internal/ext ernal biliary drain. The drain was sutured in place using silk suture. Injection of positive contrast demonstrates appropriate position. Conscious sedation was performed with the prescribed dosages and duration as above in the presence of an independent trained radiology nurse to assist in the monitoring of the patient. EKG and oximetry remained stable throughout the procedure. The patient tolerated the procedure well and there were n o complications. The patient was sent to post anesthesia recovery in stable condition. CONCLUSION: Uncomplicated internal/external biliary stent placement as above. The obstruction is at the level of the pancreatic head approaching the ampulla. No discrete stone observed. Kvng Craft Jr., MD on January 17, 2017 at 15:58 Board Certified Radiologist. This report was verified electronically.
[2017-01-17] MEDS: ALPRAZolam 0.25 MG TAB PO PRN (17:59)
[2017-01-17] MEDS: diphenhydrAMINE HCL 25 MG CAP PO PRN (20:22)
[2017-01-18] VITALS (9 sets, daily range): BP systolic 105–134; BP diastolic 56–67; PULSE 91–108; RESP 16–20; TEMP 97.3–98.4; O2SAT 94–100
[2017-01-18] MEDS: SODIUM CHLORIDE 0.9% FLUSH 10 ML FLUSH IV FLUSH SCH ×2 (09:00→22:17)
--- NOTE | 2017-01-18 10:39 | RADRPT ---
EXAM DATE/TIME: 01/18/2017 08:06 [facility] COMPARISON: BILIARY DRAINAGE W STENT PLACE, January 17, 2017, 13:27. CT THORAX W/O CONTRAST, January 15, 2017, 8:3 8. INDICATIONS : Right lung biopsy CONCLUSION: Patient has a mass in the right lung, and most likely primary lung carcinoma. This can be biopsied percutaneously . I would wait until the patient's clinical status improved on biliary drainage. This could be biopsie d the day prior to discharge as an outpatient. Please reconsult. Thank you for this consultation. Moody Washburn MD FACR on January 18, 2017 at 10:35 Board Certified Radiologist. This report was verified electronically.
[2017-01-18 11:11] LABS: HEMATOCRIT 25.6 % (35.0-46.0); MEAN CELL VOLUME 96.9 FL (80.0-100.0); MEAN CORPUSCULAR HEMOGLOBIN 34.3 PG (27.0-34.0); MEAN CORPUSCULAR HGB CONC 35.4 % (32.0-36.0); PLATELET COUNT 478 TH/MM3 (150-450); RED BLOOD COUNT 2.64 MIL/MM3 (4.00-5.30); RED CELL DISTRIBUTION WIDTH 14.7 % (11.6-17.2); WHITE BLOOD COUNT 13.1 TH/MM3 (4.0-11.0)
[2017-01-18 11:16] LABS: HEMO FLAGS AUTO DIFF
[2017-01-18 12:00] LABS: ALT (GPT) 228 U/L (10-53); ANION GAP 10 MEQ/L (5-15); AST (GOT) 146 U/L (15-37); BLOOD UREA NITROGEN 11 MG/DL (7-18); CHLORIDE 100 MEQ/L (98-107); GLOMERULAR FILTRATION RATE 145 ML/MIN (>89); POTASSIUM 3.3 MEQ/L (3.5-5.1); SODIUM (NA) 133 MEQ/L (136-145)
[2017-01-18 12:23] LABS: BANDS 10 % (0-6); BASOPHILS 2 % (0-2); EOSINOPHILS 2 % (0-4); METAMYELOCYTES 2 % (0-1); MYELOCYTES 1 % (0-0); NEUTROPHIL # MANUAL DIFF 10.3 TH/MM3 (1.8-7.7); POLYS (SEG NEUTROPHILS) 66 % (16-70); WBC DIFF SAMPLE 100
[2017-01-18 12:24] LABS: ALKALINE PHOSPHATASE 959 U/L (45-117); PLATELET ESTIMATE SMEAR NORMAL (NORMAL); PLATELET MORPHOLOGY NORMAL (NORMAL); SCAN/DIFF FINAL DIFF MANUAL; TARGET CELLS 3+ (NORMAL); TOTAL BILIRUBIN ADULT 16.9 MG/DL (0.2-1.0)
--- NOTE | 2017-01-18 13:12 | HHI.PR ---
Subjective Remarks [facility] called due to low BP. The patient apparently had gotten up with assistance to use the restroom, became lightheaded. Her blood pressure was 74/ 46. Biliary drain is in place and draining well. Patient denies chest pain or dyspnea. She does report cough. Objective Vitals Vital Signs Date Time Temp Pulse Resp B/P Pulse Ox O2 Delivery O2 Flow Rate FiO2 01/18/17 08:00 97.3 95 20 111/67 94 01/18/17 04:00 98.4 93 16 134/63 99 01/18/17 00:00 98.3 91 16 124/60 97 01/17/17 20:16 90 01/17/17 20:00 98.0 89 16 138/62 95 01/17/17 19:30 Room Air 01/17/17 16:00 97.5 89 18 162/72 94 01/17/17 15:30 81 18 135/66 94 01/17/17 15:00 81 18 118/64 93 01/17/17 14:45 97.7 88 18 93 I/O 01/17/17 01/17/17 01/17/17 01/18/17 01/18/17 01/18/17 06:59 14:59 22:59 06:59 14:59 22:59 Intake Total 120 ml 576 ml 336 ml Output Total 1100 ml 775 ml Balance 120 ml -524 ml -439 ml Intake Oral 120 ml 240 ml 0 ml IV Total 336 ml 336 ml Output Drainage Total 1100 ml 775 ml # Voids 1 2 2 # Bowel Movements 0 0 0 Result Diagram: 01/18/17 1009 01/18/17 1009 Imaging Last Impressions Consultation 01/18/17 0806 Signed Impressions: Service Date/Time: Wednesday, January 18, 2017 08:06 - CONCLUSION: Patient has a mass in the right lung, and most likely primary lung carcinoma. This can be biopsied percutaneously . I would wait until the patient's clinical status improved on biliary drainage. This could be biopsied the day prior to discharge as an outpatient. Please reconsult. Thank you for this consultation. Moody Washburn MD FACR Bile Duct Drainage 01/17/17 0000 Signed Impressions: Service Date/Time: Tuesday, January 17, 2017 13:27 - CONCLUSION: Uncomplicated internal/external biliary stent placement as above. The obstruction is at the level of the pancreatic head approaching the ampulla. No discrete stone observed. Kvng Craft Jr., MD Cholangiopancreatography MRI 01/14/17 0000 Signed Impressions: Service Date/Time: Saturday, January 14, 2017 08:31 - CONCLUSION: 1. Significant intrahepatic and extrahepatic biliary ductal dilatation with no visualized mass on this noncontrast study. A small distal tumor or stricture could be present. 2. The pancreatic duct is at the upper limits of normal in size. There is no visualized pancreatic lesion. 3. Large simple cyst again noted in the liver. There is a smaller cyst in the left lobe. 4. Small to moderate-sized hiatal hernia. 5. The gallbladder is at the upper limits of normal in size with no evidence of cholelithiasis. Oren Garduno MD Chest CT 01/14/17 0000 Signed Impressions: Service Date/Time: Sunday, January 15, 2017 08:38 - CONCLUSION: 1. Large spiculated soft tissue mass in the right upper lobe most characteristic of a primary bronchogenic carcinoma. This would be amenable to CT-guided core biopsy. 2. Pneumomediastinum is present. 3. Small pretracheal and periaortic lymph nodes noted but no definite adenopathy on this noncontrast exam. 4. Small pleural effusions left greater than right. 5. Underlying emphysema. Oren Garduno MD Abdomen/Pelvis CT 01/12/17 1716 Signed Impressions: Service Date/Time: January 19:16 - CONCLUSION: Abnormal common duct and distal pancreatic duct. MRCP would be of benefit Prominent gallbladder without obvious stones. Moody Washburn MD FACR Objective Remarks General: Thin female in no acute distress. Jaundiced. HEENT: Scleral icterus noted. Heart: Regular rate and rhythm. No murmur. Lungs: Clear to auscultation bilaterally. No wheezes, rales, or rhonchi. Breathing is nonlabored. Abdomen: Soft, nontender, nondistended. Extremities: No lower extremity edema. Psych: Alert and oriented. Procedures 01/17/17 biliary drain placement Urinary Catheter: No Vascular Central Line Catheter: No A/P Problem List: (1) Jaundice ICD Code: R17 Status: Acute (2) Hyperbilirubinemia ICD Code: E80.6 Status: Acute (3) Transaminitis ICD Code: R74.0 Status: Acute (4) Leukocytosis ICD Code: D72.829 Status: Acute (5) Hyponatremia ICD Code: E87.1 Status: Acute (6) Mild anemia ICD Code: D64.9 Status: Acute (7) Lung mass ICD Code: R91.8 Status: Acute (8) Hypotension ICD Code: I95.9 Status: Acute (9) Dehydration ICD Code: E86.0 Status: Acute Assessment and Plan 1. Jaundice, painless: Total bilirubin, AST, & ALT elevated. Appreciate GI recommendations. S/P EGD with EUS. 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 S/P MRCP. Biliary drain placed, draining well. 2. Leukocytosis: No other signs of infection at this time. Follow labs. 3. Hyponatremia: Continue normal saline. Sodium level is stable. 4. Normocytic anemia: Monitor labs. 5. DVT prophylaxis: SCDs, CHRIS hose. 6. Hypokalemia: Slightly better. Continue potassium supplementation. 7. Lung mass: Large spiculated soft tissue mass in the right upper lobe most characteristic of a primary bronchogenic carcinoma. CT-guided biopsy ordered. Appreciate oncology recommendations. CEA, CA-19-9, and CA-125 are elevated. 8. Coagulopathy: INR is decreased following administration of FFP. 9. Hypotension, lightheadedness: Patient appears to be dehydrated. She has been nothing by mouth for procedure yesterday and again today. In between, she has had little oral intake. We'll give a 500 mL bolus of normal saline. Continue IV fluids. Jamie Rojas MD Jan 18, 2017 13:12
[2017-01-18] MEDS ORDERED: SODIUM CHLORID 0.9% 500 ML INJ 500 ML IV ONE (13:15)
--- NOTE | 2017-01-18 14:35 | PD.ONC.PN ---
Subjective Subjective Remarks Afebrile overnight Pt resting in bed asleep; awakens easily to verbal stimuli Reports that she feels "wiped out" Asking to eat Objective Data Date Time Temp Pulse Resp B/P Pulse Ox O2 Delivery O2 Flow Rate FiO2 01/18/17 08:00 97.3 95 20 111/67 94 01/18/17 07:15 Room Air 2.00 01/18/17 04:00 98.4 93 16 134/63 99 01/18/17 00:00 98.3 91 16 124/60 97 01/17/17 20:16 90 01/17/17 20:00 98.0 89 16 138/62 95 01/17/17 19:30 Room Air 01/17/17 16:00 97.5 89 18 162/72 94 01/17/17 15:30 81 18 135/66 94 01/17/17 15:00 81 18 118/64 93 01/17/17 14:45 97.7 88 18 93 01/18/17 01/18/17 01/18/17 07:00 15:00 23:00 Intake Total 336 ml Output Total 775 ml Balance -439 ml Result Diagram: 01/18/17 1009 01/18/17 1009 Laboratory Results Laboratory Tests Test 01/18/17 10:09 White Blood Count 13.1 TH/MM3 Red Blood Count 2.64 MIL/MM3 Hemoglobin 9.1 GM/DL Hematocrit 25.6 % Mean Corpuscular Volume 96.9 FL Mean Corpuscular Hemoglobin 34.3 PG Mean Corpuscular Hemoglobin 35.4 % Concent Red Cell Distribution Width 14.7 % Platelet Count 478 TH/MM3 Mean Platelet Volume 9.7 FL Neutrophils (%) (Auto) % Lymphocytes (%) (Auto) % Monocytes (%) (Auto) % Eosinophils (%) (Auto) % Basophils (%) (Auto) % Neutrophils # (Auto) TH/MM3 Lymphocytes # (Auto) TH/MM3 Monocytes # (Auto) TH/MM3 Eosinophils # (Auto) TH/MM3 Basophils # (Auto) TH/MM3 CBC Comment AUTO DIFF Differential Total Cells 100 Counted Neutrophils % (Manual) 66 % Band Neutrophils % 10 % Lymphocytes % 11 % Monocytes % 6 % Eosinophils % 2 % Basophils % 2 % Neutrophils # (Manual) 10.3 TH/MM3 Metamyelocytes 2 % Myelocytes 1 % Differential Comment FINAL DIFF MANUAL Platelet Estimate NORMAL Platelet Morphology Comment NORMAL Target Cells 3+ Sodium Level 133 MEQ/L Potassium Level 3.3 MEQ/L Chloride Level 100 MEQ/L Carbon Dioxide Level 23.0 MEQ/L Anion Gap 10 MEQ/L Blood Urea Nitrogen 11 MG/DL Creatinine 0.43 MG/DL Estimat Glomerular Filtration 145 ML/MIN Rate Random Glucose 90 MG/DL Calcium Level 9.1 MG/DL Magnesium Level 2.0 MG/DL Total Bilirubin 16.9 MG/DL Aspartate Amino Transf 146 U/L (AST/SGOT) Alanine Aminotransferase 228 U/L (ALT/SGPT) Alkaline Phosphatase 959 U/L Total Protein 7.1 GM/DL Albumin 2.5 GM/DL Imaging Studies Last 24 hours Impressions Consultation 01/18/17 0806 Signed Impressions: Service Date/Time: Wednesday, January 18, 2017 08:06 - CONCLUSION: Patient has a mass in the right lung, and most likely primary lung carcinoma. This can be biopsied percutaneously . I would wait until the patient's clinical status improved on biliary drainage. This could be biopsied the day prior to discharge as an outpatient. Please reconsult. Thank you for this consultation. Moody Washburn MD FACR Administered Medications Medications (Trade) Dose Ordered Sig/Jason Route PRN Reason Start Time Stop Time Status Last Admin Dose Admin Sodium Chloride (NS Flush) 2 ml BID IV FLUSH 01/12/17 21:00 01/18/17 09:00 Alprazolam (Xanax) 0.25 mg Q8H PRN PO ANXIETY 01/15/17 13:30 01/17/17 17:59 Diphenhydramine HCl (Benadryl) 25 mg HS PRN PO INSOMNIA 01/17/17 19:00 01/17/17 20:22 Objective Remarks GENERAL: Jaundiced elderly female upright in bed. SKIN: Warm and dry. +jaundice. Biliary drain to RUQ draining large amt of fluid. HEAD: Normocephalic. EYES: ++scleral icterus. No injection or drainage. NECK: Supple, trachea midline. CARDIOVASCULAR: Regular rate and rhythm RESPIRATORY: Breath sounds equal bilaterally. No accessory muscle use. GASTROINTESTINAL: Abdomen soft, non-tender, nondistended. EXTREMITIES: No cyanosis NEUROLOGICAL: awake and alert, normal speech. Assessment/Plan Problem List: (1) Lung mass Status: Acute Plan: -- CT on 01/15 shows 3.8x 3.7cm large spiculated mass found in the upper R lung -- CT guided biopsy ordered. -- History of superficial bladder cancer, followed with Dr Castillo. (2) Hyperbilirubinemia Status: Acute Plan: --undergoing PTC in IR 01/17 -- EUS--> benign duodenal stricture, duodenal mucosal irregularity, dilated pancreatic duct; dilated common bile duct --ERCP --> not completed d/t duodenal stricture. --MRCP 01-14--> significant intrahepatic and extrahepatic biliary ductal dilatation with no visualized mass, small distal tumor or stricture could be present pancreatic duct upper limits normal size, GB upper limits normal size with no evidence cholelithiasis. Assessment 71-year-old female with increasing jaundice admitted with abdominal pain Plan 1. Patient had a percutaneous biliary drain placement yesterday; plan to cap once total bilirubin levels have normalized 2. Per Dr. Washburn, the patient will have a lung biopsy just prior to discharge 3. Monitor bilirubin, CBC Bette Portillo Jan 18, 2017 14:35
--- NOTE | 2017-01-18 15:14 | HHI.GIFU ---
Subjective Remarks Resting in bed. States she is hungry and would like to eat. No n/v. No abdominal pain. Lung biopsy has been cancelled for today and the plan is to do it prior to discharge. (Fouzia Baxter) Objective Vitals I&O Vital Signs Date Time Temp Pulse Resp B/P Pulse Ox O2 Delivery O2 Flow Rate FiO2 01/18/17 08:00 97.3 95 20 111/67 94 01/18/17 07:15 Room Air 2.00 01/18/17 04:00 98.4 93 16 134/63 99 01/18/17 00:00 98.3 91 16 124/60 97 01/17/17 20:16 90 01/17/17 20:00 98.0 89 16 138/62 95 01/17/17 19:30 Room Air 01/17/17 16:00 97.5 89 18 162/72 94 01/17/17 15:30 81 18 135/66 94 I/O 01/17/17 01/17/17 01/17/17 01/18/17 01/18/17 01/18/17 06:59 14:59 22:59 06:59 14:59 22:59 Intake Total 120 ml 576 ml 336 ml 588 ml Output Total 1100 ml 775 ml Balance 120 ml -524 ml -439 ml 588 ml Intake Oral 120 ml 240 ml 0 ml IV Total 336 ml 336 ml 588 ml Output Drainage Total 1100 ml 775 ml # Voids 1 2 2 # Bowel Movements 0 0 0 Laboratory Laboratory Tests Test 01/18/17 10:09 White Blood Count 13.1 Red Blood Count 2.64 Hemoglobin 9.1 Hematocrit 25.6 Mean Corpuscular Volume 96.9 Mean Corpuscular Hemoglobin 34.3 Mean Corpuscular Hemoglobin 35.4 Concent Red Cell Distribution Width 14.7 Platelet Count 478 Mean Platelet Volume 9.7 Neutrophils (%) (Auto) Lymphocytes (%) (Auto) Monocytes (%) (Auto) Eosinophils (%) (Auto) Basophils (%) (Auto) Neutrophils # (Auto) Lymphocytes # (Auto) Monocytes # (Auto) Eosinophils # (Auto) Basophils # (Auto) CBC Comment AUTO DIFF Differential Total Cells 100 Counted Neutrophils % (Manual) 66 Band Neutrophils % 10 Lymphocytes % 11 Monocytes % 6 Eosinophils % 2 Basophils % 2 Neutrophils # (Manual) 10.3 Metamyelocytes 2 Myelocytes 1 Differential Comment FINAL DIFF MANUAL Platelet Estimate NORMAL Platelet Morphology Comment NORMAL Target Cells 3+ Sodium Level 133 Potassium Level 3.3 Chloride Level 100 Carbon Dioxide Level 23.0 Anion Gap 10 Blood Urea Nitrogen 11 Creatinine 0.43 Estimat Glomerular Filtration 145 Rate Random Glucose 90 Calcium Level 9.1 Magnesium Level 2.0 Total Bilirubin 16.9 Aspartate Amino Transf 146 (AST/SGOT) Alanine Aminotransferase 228 (ALT/SGPT) Alkaline Phosphatase 959 Total Protein 7.1 Albumin 2.5 Imaging Last Impressions Consultation 01/18/17 0806 Signed Impressions: Service Date/Time: Wednesday, January 18, 2017 08:06 - CONCLUSION: Patient has a mass in the right lung, and most likely primary lung carcinoma. This can be biopsied percutaneously . I would wait until the patient's clinical status improved on biliary drainage. This could be biopsied the day prior to discharge as an outpatient. Please reconsult. Thank you for this consultation. Moody Washburn MD FACR Bile Duct Drainage 01/17/17 0000 Signed Impressions: Service Date/Time: Tuesday, January 17, 2017 13:27 - CONCLUSION: Uncomplicated internal/external biliary stent placement as above. The obstruction is at the level of the pancreatic head approaching the ampulla. No discrete stone observed. Kvng Craft Jr., MD Cholangiopancreatography MRI 01/14/17 0000 Signed Impressions: Service Date/Time: Saturday, January 14, 2017 08:31 - CONCLUSION: 1. Significant intrahepatic and extrahepatic biliary ductal dilatation with no visualized mass on this noncontrast study. A small distal tumor or stricture could be present. 2. The pancreatic duct is at the upper limits of normal in size. There is no visualized pancreatic lesion. 3. Large simple cyst again noted in the liver. There is a smaller cyst in the left lobe. 4. Small to moderate-sized hiatal hernia. 5. The gallbladder is at the upper limits of normal in size with no evidence of cholelithiasis. Oren Garduno MD Chest CT 01/14/17 0000 Signed Impressions: Service Date/Time: Sunday, January 15, 2017 08:38 - CONCLUSION: 1. Large spiculated soft tissue mass in the right upper lobe most characteristic of a primary bronchogenic carcinoma. This would be amenable to CT-guided core biopsy. 2. Pneumomediastinum is present. 3. Small pretracheal and periaortic lymph nodes noted but no definite adenopathy on this noncontrast exam. 4. Small pleural effusions left greater than right. 5. Underlying emphysema. Oren Garduno MD Abdomen/Pelvis CT 01/12/17 1716 Signed Impressions: Service Date/Time: January 19:16 - CONCLUSION: Abnormal common duct and distal pancreatic duct. MRCP would be of benefit Prominent gallbladder without obvious stones. Moody Washburn MD FACR Physical Exam HEENT: Normocephalic; atraumatic +icterus CHEST: CTA CARDIAC: RRR ABDOMEN: Soft, nondistended, RUQ tenderness on exam; no hepatosplenomegaly; bowel sounds are present x 4 EXTREMITIES: No clubbing, cyanosis, or edema. 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 Pt with sudden onset decreased appetite, weight loss, jaundice, dark urine 1.5-2 weeks ago. She has lost weight Abdomen/Pelvis CT (01/12/17)---> Abnormal common duct and distal pancreatic duct. She denies any history of pancreatitis. She was drinking 4-5 beers daily up until 2 weeks ago when she no longer had the taste for it. S /P EUS/Unsuccessful ERCP (01/13/17)----> found duodenal mucosal irregularity, dilated CBD and pancreatic duct; ERCP not completed d/t duodenal stricture. MRCP ()-----> 1. Significant intrahepatic and extrahepatic biliary ductal dilatation with no visualized mass on this noncontrast study. A small distal tumor or stricture could be present. 2. The pancreatic duct is at the upper limits of normal in size. There is no visualized pancreatic lesion. 3. Large simple cyst again noted in the liver. There is a smaller cyst in the left lobe. 4. Small to moderate-sized hiatal hernia. 5. The gallbladder is at the upper limits of normal in size with no evidence of cholelithiasis. Elevated tumor markers CA 19-9 8740, CEA 10.1, CA 125 115. Oncology following. S/P PTC with internal external biliary stent (01/17/17). The obstruction is at the level of the pancreatic head the ampulla, no discrete stone. Drain is patent with large amount of biliary drainage. LFTs trending down. T. Bili 16.9, AST 146, ALT 228, ALk Phosph 959. - Large RUL Lung mass. Chest CT (01/14/17)----> 1. Large spiculated soft tissue mass in the right upper lobe most characteristic of a primary bronchogenic carcinoma. This would be amenable to CT-guided core biopsy. 2. Pneumomediastinum is present. 3. Small pretracheal and periaortic lymph nodes noted but no definite adenopathy on this noncontrast exam. 4. Small pleural effusions left greater than right. 5. Underlying emphysema. Oncology following. Plan is for lung biopsy prior to discharge once her condition improves. - Duodenal mucosa irregularity, bx with mildly edematous small bowel mucosa with slightly increased numbers of eosinophils. There is no evidence of celiac disease or adenomatous change. - Leukocytosis, low-grade fever. WBC 13.1 - Hyponatremia, hypokalemia per attending - History bladder cancer, status post resection 1.5 years ago[address] Castillo. Recently seen for suspected blood in urine and he said she did not have any and sent her for outpatient labs. PLAN: - LIZZETTE - Monitor labs - Transfuse as necessary - IV fluids - Supportive care - Per IR, consider capping the tube for internal drainage once T. Bili approaches normal levels - Plan is for lung biopsy prior to d/c once condition improves - Further recommendations to follow based on results of above - Patient seen and examined by Dr. Shahid and myself and this note is written on his behalf. (Fouzia Baxter) Physician Comments Patient seen and examined Agree with above Continue with current supportive care Monitor labs (Aj Shahid MD) Fouzia Baxter Jan 18, 2017 15:14 Aj Shahid MD Jan 18, 2017 18:21
[2017-01-18] MEDS: NS + KCL 20 MEQ INJ 1,000 ML IV SCH (22:17)
[2017-01-18] MEDS: diphenhydrAMINE HCL 25 MG CAP PO PRN (22:17)
[2017-01-19 05:25] VITALS: BP 104/66; PULSE 100; RESP 16; TEMP 97.8; O2SAT 98
[2017-01-19] MEDS: NS + KCL 20 MEQ INJ 1,000 ML IV SCH ×2 (06:38→21:42)
[2017-01-19 07:30] VITALS: BP 129/63; PULSE 77; RESP 12; TEMP 98.6; O2SAT 98
[2017-01-19 08:00] VITALS: BP 107/67; PULSE 94; RESP 18; TEMP 97.2; O2SAT 99
[2017-01-19 09:27] LABS: HEMATOCRIT 26.3 % (35.0-46.0); MEAN CELL VOLUME 100.5 FL (80.0-100.0); MEAN CORPUSCULAR HEMOGLOBIN 34.5 PG (27.0-34.0); MEAN CORPUSCULAR HGB CONC 34.3 % (32.0-36.0); PLATELET COUNT 614 TH/MM3 (150-450); RED BLOOD COUNT 2.62 MIL/MM3 (4.00-5.30); RED CELL DISTRIBUTION WIDTH 15.5 % (11.6-17.2)
[2017-01-19 09:35] LABS: HEMO FLAGS AUTO DIFF
[2017-01-19 10:04] LABS: ALT (GPT) 195 U/L (10-53); ANION GAP 13 MEQ/L (5-15); AST (GOT) 88 U/L (15-37); BICARBONATE 16.1 MEQ/L (21.0-32.0); CHLORIDE 102 MEQ/L (98-107); GLOMERULAR FILTRATION RATE 47 ML/MIN (>89); POTASSIUM 3.8 MEQ/L (3.5-5.1); SODIUM (NA) 131 MEQ/L (136-145)
[2017-01-19 10:18] LABS: ALKALINE PHOSPHATASE 970 U/L (45-117); BLOOD UREA NITROGEN 33 MG/DL (7-18); TOTAL BILIRUBIN ADULT 16.7 MG/DL (0.2-1.0)
[2017-01-19 10:35] LABS: BANDS 10 % (0-6); EOSINOPHILS 1 % (0-4); METAMYELOCYTES 1 % (0-1); MYELOCYTES 2 % (0-0); NEUTROPHIL # MANUAL DIFF 14.2 TH/MM3 (1.8-7.7); POLYS (SEG NEUTROPHILS) 66 % (16-70); WBC DIFF SAMPLE 100
[2017-01-19 10:36] LABS: PLATELET ESTIMATE SMEAR HIGH (NORMAL); PLATELET MORPHOLOGY ENLARGED (NORMAL); SCAN/DIFF FINAL DIFF MANUAL; TARGET CELLS 1+ (NORMAL)
[2017-01-19] MEDS ORDERED: SODIUM CHLORID 0.9% 500 ML INJ 500 ML IV SCH (11:30)
--- NOTE | 2017-01-19 11:44 | PD.ONC.PN ---
Subjective Subjective Remarks Patient afebrile Requesting bedside commode Reports being tired Objective Data Date Time Temp Pulse Resp B/P Pulse Ox O2 Delivery O2 Flow Rate FiO2 01/19/17 07:30 98.6 77 12 129/63 98 01/19/17 05:25 97.8 100 16 104/66 98 01/18/17 23:47 97.8 92 16 105/63 99 01/18/17 21:42 97.9 93 16 119/56 100 01/18/17 20:30 Nasal Cannula 4.00 01/18/17 20:00 94 01/18/17 16:00 98.2 96 20 111/63 97 01/18/17 15:10 95 2.00 01/18/17 12:00 97.5 108 20 116/57 97 01/19/17 01/19/17 01/19/17 07:00 15:00 23:00 Intake Total 994 ml Output Total 2350 ml Balance -1356 ml Result Diagram: 01/19/17 0644 01/19/17 0644 Laboratory Results Laboratory Tests Test 01/19/17 06:44 White Blood Count 18.0 TH/MM3 Red Blood Count 2.62 MIL/MM3 Hemoglobin 9.0 GM/DL Hematocrit 26.3 % Mean Corpuscular Volume 100.5 FL Mean Corpuscular Hemoglobin 34.5 PG Mean Corpuscular Hemoglobin 34.3 % Concent Red Cell Distribution Width 15.5 % Platelet Count 614 TH/MM3 Mean Platelet Volume 9.1 FL Neutrophils (%) (Auto) % Lymphocytes (%) (Auto) % Monocytes (%) (Auto) % Eosinophils (%) (Auto) % Basophils (%) (Auto) % Neutrophils # (Auto) TH/MM3 Lymphocytes # (Auto) TH/MM3 Monocytes # (Auto) TH/MM3 Eosinophils # (Auto) TH/MM3 Basophils # (Auto) TH/MM3 CBC Comment AUTO DIFF Differential Total Cells 100 Counted Neutrophils % (Manual) 66 % Band Neutrophils % 10 % Lymphocytes % 14 % Monocytes % 6 % Eosinophils % 1 % Neutrophils # (Manual) 14.2 TH/MM3 Metamyelocytes 1 % Myelocytes 2 % Differential Comment FINAL DIFF MANUAL Platelet Estimate HIGH Platelet Morphology Comment ENLARGED Target Cells 1+ Sodium Level 131 MEQ/L Potassium Level 3.8 MEQ/L Chloride Level 102 MEQ/L Carbon Dioxide Level 16.1 MEQ/L Anion Gap 13 MEQ/L Blood Urea Nitrogen 33 MG/DL Creatinine 1.14 MG/DL Estimat Glomerular Filtration 47 ML/MIN Rate Random Glucose 98 MG/DL Calcium Level 8.9 MG/DL Total Bilirubin 16.7 MG/DL Aspartate Amino Transf 88 U/L (AST/SGOT) Alanine Aminotransferase 195 U/L (ALT/SGPT) Alkaline Phosphatase 970 U/L Total Protein 7.6 GM/DL Albumin 2.8 GM/DL Administered Medications Medications (Trade) Dose Ordered Sig/Jason Route PRN Reason Start Time Stop Time Status Last Admin Dose Admin Sodium Chloride (NS Flush) 2 ml BID IV FLUSH 01/12/17 21:00 01/18/17 22:17 Alprazolam (Xanax) 0.25 mg Q8H PRN PO ANXIETY 01/15/17 13:30 01/17/17 17:59 Diphenhydramine HCl 25 mg 25 mg HS PRN PO INSOMNIA 01/17/17 19:00 01/18/17 22:17 Potassium Chloride/Sodium Chloride (NS + KCl 20 Meq Inj) 1,000 ml @ 150 mls/hr Q6H40M IV 01/18/17 15:30 01/19/17 06:38 Objective Remarks GENERAL: Jaundiced, cachetic appearing female resting in bed in no acute distress SKIN: Warm and dry. +jaundice. 800ml's of biliary drainage emptied during my visit. HEAD: Normocephalic. EYES: ++scleral icterus. No injection or drainage. NECK: Supple, trachea midline. CARDIOVASCULAR: Regular rate and rhythm RESPIRATORY: Lungs clear, diminished. GASTROINTESTINAL: Abdomen soft, non-tender, nondistended. EXTREMITIES: No cyanosis. No edema NEUROLOGICAL: Normal speech. Moving all extremities. No obvious focal deficit. Assessment/Plan Problem List: (1) Lung mass Status: Acute Plan: -- CT on 01/15 shows 3.8x 3.7cm large spiculated mass found in the upper R lung -- History of superficial bladder cancer, followed with Dr Castillo. -- Plan for CT-guided biopsy once biliary drainage has decreased (2) Hyperbilirubinemia Status: Acute Plan: -- EUS--> benign duodenal stricture, duodenal mucosal irregularity, dilated pancreatic duct; dilated common bile duct --ERCP --> not completed d/t duodenal stricture. --MRCP 8-12--> significant intrahepatic and extrahepatic biliary ductal dilatation with no visualized mass, small distal tumor or stricture could be present pancreatic duct upper limits normal size, GB upper limits normal size with no evidence cholelithiasis. (3) Dehydration Status: Acute Plan: -- Biliary drainage had output of 3000ml yesterday -- Her creatinine has significantly increased overnight -- Plan to give IV fluid bolus and increase maintenance fluids Assessment 71-year-old female with increasing jaundice admitted with abdominal pain Plan 1. Give 500 mL NS bolus 2. Increase maintenance fluids to 150ml/hr. 3. Monitor bilirubin, CBC 4. Will hold off on lung biopsy until bilirubin levels have normalized. Attending Statement The exam, history, and the medical decision-making described in the above note were completed with the assistance of the mid-level provider. I reviewed and agree with the findings presented. I attest that I had a [id number] encounter with the patient on the same day, and personally performed and documented my assessment and findings in the medical record. Ms. Membreno is a 71 yoF with spiculated lung mass and s/p percutaneous biliary drain. Will plan for biopsy of lung mass once improved. Bette Portillo Jan 19, 2017 11:44 Sera Roper MD Jan 20, 2017 13:13
[2017-01-19 12:00] VITALS: BP 117/70; PULSE 104; RESP 18; TEMP 97.2; O2SAT 100
--- NOTE | 2017-01-19 12:04 | HHI.GIFU ---
Subjective Remarks Resting in bed in no distress. Reports that she had a syncopal episode while going to the bathroom yesterday. No n/v. No abdominal pain, although poor appetite. (Fouzia Baxter) Objective Vitals I&O Vital Signs Date Time Temp Pulse Resp B/P Pulse Ox O2 Delivery O2 Flow Rate FiO2 01/19/17 07:30 98.6 77 12 129/63 98 01/19/17 05:25 97.8 100 16 104/66 98 01/18/17 23:47 97.8 92 16 105/63 99 01/18/17 21:42 97.9 93 16 119/56 100 01/18/17 20:30 Nasal Cannula 4.00 01/18/17 20:00 94 01/18/17 16:00 98.2 96 20 111/63 97 01/18/17 15:10 95 2.00 01/18/17 12:00 97.5 108 20 116/57 97 I/O 01/18/17 01/18/17 01/18/17 01/19/17 01/19/17 01/19/17 07:00 15:00 23:00 07:00 15:00 23:00 Intake Total 336 ml 588 ml 759 ml 994 ml Output Total 775 ml 875 ml 2350 ml Balance -439 ml 588 ml -116 ml -1356 ml Intake Oral 0 ml 0 ml 200 ml 100 ml IV Total 336 ml 588 ml 559 ml 894 ml Output Urine Total 25 ml 200 ml Drainage Total 775 ml 850 ml 2150 ml # Voids 2 2 # Bowel Movements 0 0 0 0 Laboratory Laboratory Tests Test 01/19/17 06:44 White Blood Count 18.0 Red Blood Count 2.62 Hemoglobin 9.0 Hematocrit 26.3 Mean Corpuscular Volume 100.5 Mean Corpuscular Hemoglobin 34.5 Mean Corpuscular Hemoglobin 34.3 Concent Red Cell Distribution Width 15.5 Platelet Count 614 Mean Platelet Volume 9.1 Neutrophils (%) (Auto) Lymphocytes (%) (Auto) Monocytes (%) (Auto) Eosinophils (%) (Auto) Basophils (%) (Auto) Neutrophils # (Auto) Lymphocytes # (Auto) Monocytes # (Auto) Eosinophils # (Auto) Basophils # (Auto) CBC Comment AUTO DIFF Differential Total Cells 100 Counted Neutrophils % (Manual) 66 Band Neutrophils % 10 Lymphocytes % 14 Monocytes % 6 Eosinophils % 1 Neutrophils # (Manual) 14.2 Metamyelocytes 1 Myelocytes 2 Differential Comment FINAL DIFF MANUAL Platelet Estimate HIGH Platelet Morphology Comment ENLARGED Target Cells 1+ Sodium Level 131 Potassium Level 3.8 Chloride Level 102 Carbon Dioxide Level 16.1 Anion Gap 13 Blood Urea Nitrogen 33 Creatinine 1.14 Estimat Glomerular Filtration 47 Rate Random Glucose 98 Calcium Level 8.9 Total Bilirubin 16.7 Aspartate Amino Transf 88 (AST/SGOT) Alanine Aminotransferase 195 (ALT/SGPT) Alkaline Phosphatase 970 Total Protein 7.6 Albumin 2.8 Imaging Last Impressions Consultation 01/18/17 0806 Signed Impressions: Service Date/Time: Wednesday, January 18, 2017 08:06 - CONCLUSION: Patient has a mass in the right lung, and most likely primary lung carcinoma. This can be biopsied percutaneously . I would wait until the patient's clinical status improved on biliary drainage. This could be biopsied the day prior to discharge as an outpatient. Please reconsult. Thank you for this consultation. Moody Washburn MD FACR Bile Duct Drainage 01/17/17 0000 Signed Impressions: Service Date/Time: Tuesday, January 17, 2017 13:27 - CONCLUSION: Uncomplicated internal/external biliary stent placement as above. The obstruction is at the level of the pancreatic head approaching the ampulla. No discrete stone observed. Kvng Craft Jr., MD Cholangiopancreatography MRI 01/14/17 0000 Signed Impressions: Service Date/Time: Saturday, January 14, 2017 08:31 - CONCLUSION: 1. Significant intrahepatic and extrahepatic biliary ductal dilatation with no visualized mass on this noncontrast study. A small distal tumor or stricture could be present. 2. The pancreatic duct is at the upper limits of normal in size. There is no visualized pancreatic lesion. 3. Large simple cyst again noted in the liver. There is a smaller cyst in the left lobe. 4. Small to moderate-sized hiatal hernia. 5. The gallbladder is at the upper limits of normal in size with no evidence of cholelithiasis. Oren Garduno MD Chest CT 01/14/17 0000 Signed Impressions: Service Date/Time: Sunday, January 15, 2017 08:38 - CONCLUSION: 1. Large spiculated soft tissue mass in the right upper lobe most characteristic of a primary bronchogenic carcinoma. This would be amenable to CT-guided core biopsy. 2. Pneumomediastinum is present. 3. Small pretracheal and periaortic lymph nodes noted but no definite adenopathy on this noncontrast exam. 4. Small pleural effusions left greater than right. 5. Underlying emphysema. Oren Garduno MD Abdomen/Pelvis CT 01/12/17 1716 Signed Impressions: Service Date/Time: January 19:16 - CONCLUSION: Abnormal common duct and distal pancreatic duct. MRCP would be of benefit Prominent gallbladder without obvious stones. Moody Washburn MD FACR Physical Exam HEENT: Normocephalic; atraumatic +icterus CHEST: CTA CARDIAC: RRR ABDOMEN: Soft, nondistended, RUQ tenderness on exam; no hepatosplenomegaly; bowel sounds are present x 4. Biliary drain with large amount drainage EXTREMITIES: No clubbing, cyanosis, or edema. 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 Pt with sudden onset decreased appetite, weight loss, jaundice, dark urine 1.5-2 weeks ago. She has lost weight Abdomen/Pelvis CT (01/12/17)---> Abnormal common duct and distal pancreatic duct. She denies any history of pancreatitis. She was drinking 4-5 beers daily up until 2 weeks ago when she no longer had the taste for it. S /P EUS/Unsuccessful ERCP (01/13/17)----> found duodenal mucosal irregularity, dilated CBD and pancreatic duct; ERCP not completed d/t duodenal stricture. MRCP ()-----> 1. Significant intrahepatic and extrahepatic biliary ductal dilatation with no visualized mass on this noncontrast study. A small distal tumor or stricture could be present. 2. The pancreatic duct is at the upper limits of normal in size. There is no visualized pancreatic lesion. 3. Large simple cyst again noted in the liver. There is a smaller cyst in the left lobe. 4. Small to moderate-sized hiatal hernia. 5. The gallbladder is at the upper limits of normal in size with no evidence of cholelithiasis. Elevated tumor markers CA 19-9 8740, CEA 10.1, CA 125 115. Oncology following. S/P PTC with internal external biliary stent (01/17/17). The obstruction is at the level of the pancreatic head the ampulla, no discrete stone. Drain is patent with large amount of biliary drainage. Large amount of biliary drainage. LFTs improving with T. Bili 16.7, AST 88, ALT 195, ALk Phosph 970. - Large RUL Lung mass. Chest CT (01/14/17)----> 1. Large spiculated soft tissue mass in the right upper lobe most characteristic of a primary bronchogenic carcinoma. This would be amenable to CT-guided core biopsy. 2. Pneumomediastinum is present. 3. Small pretracheal and periaortic lymph nodes noted but no definite adenopathy on this noncontrast exam. 4. Small pleural effusions left greater than right. 5. Underlying emphysema. Oncology following. Plan is for lung biopsy prior to discharge once her condition improves. - Duodenal mucosa irregularity, bx with mildly edematous small bowel mucosa with slightly increased numbers of eosinophils. There is no evidence of celiac disease or adenomatous change. - Leukocytosis, low-grade fever. WBC 18.0 - Syncopal episode while going to the restroom yesterday. Per attending. - Hyponatremia, hypokalemia per attending - History bladder cancer, status post resection 1.5 years ago[address] Castillo. Recently seen for suspected blood in urine and he said she did not have any and sent her for outpatient labs. PLAN: - LIZZETTE - Monitor labs - Transfuse as necessary - IV fluids - Supportive care - Per IR, consider capping the tube for internal drainage once T. Bili approaches normal levels - Plan is for lung biopsy prior to d/c once condition improves - Further recommendations to follow based on results of above - Patient seen and examined by Dr. Shahid and myself and this note is written on his behalf. (Fouzia Baxter) Plan Patient seen and examined Agree with above Continue with current supportive care Monitor labs Not much to add from a GI perspective at this point in time therefore we will sign off (Aj Shahid MD) Fouzia Baxter Jan 19, 2017 12:04 Aj Shahid MD Jan 19, 2017 18:12
[2017-01-19] MEDS ORDERED: SODIUM CHLORID 0.9% 500 ML INJ 500 ML IV ONE (13:15)
[2017-01-19] MEDS: ONDANSETRON HCL 4 MG/2 ML VIAL IV PUSH PRN ×2 (13:57→19:21)
[2017-01-19] MEDS: ALPRAZolam 0.25 MG TAB PO PRN ×2 (15:40→15:41)
[2017-01-19 16:00] VITALS: BP 121/76; PULSE 113; RESP 18; TEMP 97.3; O2SAT 98
--- NOTE | 2017-01-19 16:24 | HHI.PR ---
Subjective Remarks Follow-up hypotension, jaundice, lung mass. The patient feels weak and has had nausea and vomiting today. Denies chest pain or dyspnea. Objective Vitals Vital Signs Date Time Temp Pulse Resp B/P Pulse Ox O2 Delivery O2 Flow Rate FiO2 01/19/17 12:00 97.2 104 18 117/70 100 01/19/17 08:00 97.2 94 18 107/67 99 01/19/17 07:30 98.6 77 12 129/63 98 01/19/17 07:15 Room Air 01/19/17 05:25 97.8 100 16 104/66 98 01/18/17 23:47 97.8 92 16 105/63 99 01/18/17 21:42 97.9 93 16 119/56 100 01/18/17 20:30 Nasal Cannula 4.00 01/18/17 20:00 94 I/O 01/18/17 01/18/17 01/18/17 01/19/17 01/19/17 01/19/17 06:59 14:59 22:59 06:59 14:59 22:59 Intake Total 336 ml 588 ml 759 ml 994 ml Output Total 775 ml 875 ml 2350 ml Balance -439 ml 588 ml -116 ml -1356 ml Intake Oral 0 ml 0 ml 200 ml 100 ml IV Total 336 ml 588 ml 559 ml 894 ml Output Urine Total 25 ml 200 ml Drainage Total 775 ml 850 ml 2150 ml # Voids 2 2 # Bowel Movements 0 0 0 0 Result Diagram: 01/19/17 0644 01/19/17 0644 Imaging Last Impressions Consultation 01/18/17 0806 Signed Impressions: Service Date/Time: Wednesday, January 18, 2017 08:06 - CONCLUSION: Patient has a mass in the right lung, and most likely primary lung carcinoma. This can be biopsied percutaneously . I would wait until the patient's clinical status improved on biliary drainage. This could be biopsied the day prior to discharge as an outpatient. Please reconsult. Thank you for this consultation. Moody Washburn MD FACR Bile Duct Drainage 01/17/17 0000 Signed Impressions: Service Date/Time: Tuesday, January 17, 2017 13:27 - CONCLUSION: Uncomplicated internal/external biliary stent placement as above. The obstruction is at the level of the pancreatic head approaching the ampulla. No discrete stone observed. Kvng Craft Jr., MD Cholangiopancreatography MRI 01/14/17 0000 Signed Impressions: Service Date/Time: Saturday, January 14, 2017 08:31 - CONCLUSION: 1. Significant intrahepatic and extrahepatic biliary ductal dilatation with no visualized mass on this noncontrast study. A small distal tumor or stricture could be present. 2. The pancreatic duct is at the upper limits of normal in size. There is no visualized pancreatic lesion. 3. Large simple cyst again noted in the liver. There is a smaller cyst in the left lobe. 4. Small to moderate-sized hiatal hernia. 5. The gallbladder is at the upper limits of normal in size with no evidence of cholelithiasis. Oren Garduno MD Chest CT 01/14/17 0000 Signed Impressions: Service Date/Time: Sunday, January 15, 2017 08:38 - CONCLUSION: 1. Large spiculated soft tissue mass in the right upper lobe most characteristic of a primary bronchogenic carcinoma. This would be amenable to CT-guided core biopsy. 2. Pneumomediastinum is present. 3. Small pretracheal and periaortic lymph nodes noted but no definite adenopathy on this noncontrast exam. 4. Small pleural effusions left greater than right. 5. Underlying emphysema. Oren Garduno MD Abdomen/Pelvis CT 01/12/17 1716 Signed Impressions: Service Date/Time: January 19:16 - CONCLUSION: Abnormal common duct and distal pancreatic duct. MRCP would be of benefit Prominent gallbladder without obvious stones. Moody Washburn MD FACR Objective Remarks General: Thin female in no acute distress. Jaundiced. HEENT: Scleral icterus noted. Heart: Tachycardic. No murmur. Lungs: Clear to auscultation bilaterally. No wheezes, rales, or rhonchi. Breathing is nonlabored. Abdomen: Soft, nontender, nondistended. Extremities: No lower extremity edema. Psych: Alert and oriented. Procedures 01/17/17 biliary drain placement Urinary Catheter: No Vascular Central Line Catheter: No A/P Problem List: (1) Jaundice ICD Code: R17 Status: Acute (2) Hyperbilirubinemia ICD Code: E80.6 Status: Acute (3) Transaminitis ICD Code: R74.0 Status: Acute (4) Leukocytosis ICD Code: D72.829 Status: Acute (5) Hyponatremia ICD Code: E87.1 Status: Acute (6) Mild anemia ICD Code: D64.9 Status: Acute (7) Lung mass ICD Code: R91.8 Status: Acute (8) Hypotension ICD Code: I95.9 Status: Acute (9) Dehydration ICD Code: E86.0 Status: Acute Assessment and Plan 1. Jaundice, painless: Total bilirubin, AST, & ALT are trending down. Appreciate GI recommendations. S/P EGD with EUS. 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 S/P MRCP. Biliary drain placed, draining well. 2. Leukocytosis: No other signs of infection at this time. Follow labs. 3. Hyponatremia: Continue normal saline. 4. Normocytic anemia: Monitor labs. 5. DVT prophylaxis: SCDs, CHRIS hose. 6. Hypokalemia: Slightly better. Continue potassium supplementation. 7. Lung mass: Large spiculated soft tissue mass in the right upper lobe most characteristic of a primary bronchogenic carcinoma. CT-guided biopsy to be done prior to discharge. Appreciate oncology recommendations. CEA, CA-19-9, and CA- 125 are elevated. 8. Coagulopathy: INR is decreased following administration of FFP. 9. Hypotension, lightheadedness: Continue IV fluids. Patient is having difficulty maintaining an IV. We'll request vascular access team to place a midline. Discharge Planning The patient and her family are wanting her to return to [place] for treatment. However, at this time the patient is not stable to travel. Jamie Rojas MD Jan 19, 2017 16:24
[2017-01-19 20:00] VITALS: BP 132/64; PULSE 105; PULSE 98; RESP 20; TEMP 97.1; O2SAT 99
[2017-01-19] MEDS: SODIUM CHLORIDE 0.9% FLUSH 10 ML FLUSH IV FLUSH SCH (21:00)
[2017-01-19] MEDS: diphenhydrAMINE HCL 25 MG CAP PO PRN (21:42)
[2017-01-20] VITALS (8 sets, daily range): BP systolic 106–135; BP diastolic 61–69; PULSE 87–100; RESP 13–20; TEMP 96–97.8; O2SAT 99–100
[2017-01-20] MEDS: ALPRAZolam 0.25 MG TAB PO PRN ×2 (02:59→17:52)
[2017-01-20] MEDS: NS + KCL 20 MEQ INJ 1,000 ML IV SCH (07:34)
[2017-01-20] MEDS: SODIUM CHLORIDE 0.9% FLUSH 10 ML FLUSH IV FLUSH SCH ×2 (07:38→20:29)
--- NOTE | 2017-01-20 09:23 | HHI.PR ---
Subjective Remarks Follow-up jaundice, nausea/vomiting. The patient is reporting discomfort in her back. No abdominal pain. Denies shortness of breath. No nausea or vomiting so far this morning. Objective Vitals Vital Signs Date Time Temp Pulse Resp B/P Pulse Ox O2 Delivery O2 Flow Rate FiO2 01/20/17 08:52 99 Room Air 01/20/17 08:00 97.3 92 20 130/61 100 01/20/17 07:58 Nasal Cannula 2.00 01/20/17 07:30 89 01/20/17 04:00 97.3 100 19 108/69 100 01/20/17 00:00 97.8 99 20 106/67 99 01/19/17 20:30 Nasal Cannula 4.00 01/19/17 20:00 105 01/19/17 20:00 97.1 98 20 132/64 99 01/19/17 16:00 97.3 113 18 121/76 98 01/19/17 12:00 97.2 104 18 117/70 100 I/O 01/19/17 01/19/17 01/19/17 01/20/17 01/20/17 01/20/17 07:00 15:00 23:00 07:00 15:00 23:00 Intake Total 994 ml 360 ml 1328 ml 735 ml Output Total 2350 ml 100 ml 350 ml 1100 ml Balance -1356 ml 260 ml 978 ml -365 ml Intake Oral 100 ml 360 ml 240 ml 0 ml IV Total 894 ml 1088 ml 735 ml Output Urine Total 200 ml 100 ml 250 ml Drainage Total 2150 ml 350 ml 850 ml # Voids 0 # Bowel Movements 0 0 0 Result Diagram: 01/19/17 0644 01/19/17 0644 Imaging Last Impressions Consultation 01/18/17 0806 Signed Impressions: Service Date/Time: Wednesday, January 18, 2017 08:06 - CONCLUSION: Patient has a mass in the right lung, and most likely primary lung carcinoma. This can be biopsied percutaneously . I would wait until the patient's clinical status improved on biliary drainage. This could be biopsied the day prior to discharge as an outpatient. Please reconsult. Thank you for this consultation. Moody Washburn MD FACR Bile Duct Drainage 01/17/17 0000 Signed Impressions: Service Date/Time: Tuesday, January 17, 2017 13:27 - CONCLUSION: Uncomplicated internal/external biliary stent placement as above. The obstruction is at the level of the pancreatic head approaching the ampulla. No discrete stone observed. Kvng Craft Jr., MD Cholangiopancreatography MRI 01/14/17 0000 Signed Impressions: Service Date/Time: Saturday, January 14, 2017 08:31 - CONCLUSION: 1. Significant intrahepatic and extrahepatic biliary ductal dilatation with no visualized mass on this noncontrast study. A small distal tumor or stricture could be present. 2. The pancreatic duct is at the upper limits of normal in size. There is no visualized pancreatic lesion. 3. Large simple cyst again noted in the liver. There is a smaller cyst in the left lobe. 4. Small to moderate-sized hiatal hernia. 5. The gallbladder is at the upper limits of normal in size with no evidence of cholelithiasis. Oren Garduno MD Chest CT 01/14/17 0000 Signed Impressions: Service Date/Time: Sunday, January 15, 2017 08:38 - CONCLUSION: 1. Large spiculated soft tissue mass in the right upper lobe most characteristic of a primary bronchogenic carcinoma. This would be amenable to CT-guided core biopsy. 2. Pneumomediastinum is present. 3. Small pretracheal and periaortic lymph nodes noted but no definite adenopathy on this noncontrast exam. 4. Small pleural effusions left greater than right. 5. Underlying emphysema. Oren Garduno MD Abdomen/Pelvis CT 01/12/17 1716 Signed Impressions: Service Date/Time: January 19:16 - CONCLUSION: Abnormal common duct and distal pancreatic duct. MRCP would be of benefit Prominent gallbladder without obvious stones. Moody Washburn MD FACR Objective Remarks General: Thin female in no acute distress. Jaundiced. HEENT: Scleral icterus noted. Heart: Tachycardic. No murmur. Lungs: Clear to auscultation bilaterally. No wheezes, rales, or rhonchi. Breathing is nonlabored. Abdomen: Soft, nontender, nondistended. Extremities: No lower extremity edema. Psych: Alert and oriented. Procedures 01/17/17 biliary drain placement Urinary Catheter: No Vascular Central Line Catheter: No A/P Problem List: (1) Jaundice ICD Code: R17 Status: Acute (2) Hyperbilirubinemia ICD Code: E80.6 Status: Acute (3) Transaminitis ICD Code: R74.0 Status: Acute (4) Leukocytosis ICD Code: D72.829 Status: Acute (5) Hyponatremia ICD Code: E87.1 Status: Acute (6) Mild anemia ICD Code: D64.9 Status: Acute (7) Lung mass ICD Code: R91.8 Status: Acute (8) Hypotension ICD Code: I95.9 Status: Acute (9) Dehydration ICD Code: E86.0 Status: Acute Assessment and Plan 1. Jaundice, painless: Total bilirubin, AST, & ALT are trending down. Labs are pending today. Appreciate GI recommendations. S/P EGD with EUS. 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 S/P MRCP. Biliary drain placed, draining well. 2. Leukocytosis: No other signs of infection at this time. Follow labs. 3. Hyponatremia: Continue normal saline. 4. Normocytic anemia: Monitor labs. 5. DVT prophylaxis: SCDs, CHRIS marin. 6. Hypokalemia: Slightly better. Continue potassium supplementation. Labs are pending today. 7. Lung mass: Large spiculated soft tissue mass in the right upper lobe most characteristic of a primary bronchogenic carcinoma. CT-guided biopsy to be done prior to discharge. Appreciate oncology recommendations. CEA, CA-19-9, and CA- 125 are elevated. 8. Coagulopathy: INR is decreased following administration of FFP. 9. Hypotension, lightheadedness: Continue IV fluids. Discharge Planning The patient and her family are wanting her to return to [place] for treatment. However, at this time the patient is not stable to travel. Plan for biopsy of lung mass prior to discharge. Jamie Rojas MD Jan 20, 2017 09:23
[2017-01-20 09:48] LABS: ALKALINE PHOSPHATASE 927 U/L (45-117); ALT (GPT) 154 U/L (10-53); ANION GAP 17 MEQ/L (5-15); AST (GOT) 64 U/L (15-37); BICARBONATE 13.9 MEQ/L (21.0-32.0); BLOOD UREA NITROGEN 65 MG/DL (7-18); CHLORIDE 101 MEQ/L (98-107); GLOMERULAR FILTRATION RATE 15 ML/MIN (>89); SODIUM (NA) 132 MEQ/L (136-145); TOTAL BILIRUBIN ADULT 18.2 MG/DL (0.2-1.0)
--- NOTE | 2017-01-20 10:34 | PD.CONS ---
Consult Service Palliative Care Consult Requested By Dr. Rojas. . Primary Care Physician No Primary Care Physician Reason for Consultation a. To assist with evaluation and management of symptoms including: decreased appetite, dizziness, and generalized weakness. b. To assist medical decision maker(s) with: better understanding of current medical conditions; weighing benefits/burdens of medical treatment options; making medical treatment decisions. . HPI History of Present Illness Patient is a 71 year old female who presented to the ED on 01/12/17 with complaints of decreased appetite, weakness, dizziness, jaundice and dark colored urine. She has a history significant for bladder cancer that was treated with resection approximately 1-1.5 years ago, no radiation or chemotherapy, she is and currently being followed by Dr. Castillo (urologist). She reported feeling well up until approximately 2 weeks ago when she had a sudden onset of decreased appetite, she denies any associated nausea or vomiting. The patient reported that she did have a workup as an outpatient and was told her liver enzymes were elevated but her UA showed no signs of an infection. ED workup included: * WBC: 13, Hgb: 11.1, Hct; 30.6, platelets 413 * PT:16.4, INR:1.5 * Na:125, Chloride:90, Total bili:23.6, AST:430, ALT:405, Alk Phos:1057, Albumin :2.7, Lipase:573 * CT abdomen/pelvis: Abnormal common duct and distal pancreatic duct. MRCP would be of benefit. Prominent gallbladder without obvious stones. 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 MRCP on 01/14/17: significant intrahepatic and extrahepatic biliary ductal dilatation with no visualized mass , small distal tumor or stricture could be present. There is no visualized pancreatic lesion. Large simple cyst noted in liver. Also on 01/14/17 elevated tumor markers were noted: CEA 10.1, CA19-9: 8740, CA 125:115. Oncology has been consulted to evaluate the patient, currently awaiting biopsy results, CT of chest was ordered to R/O primary lung. CT chest on 01/15/17: Large spiculated soft tissue mass in the right upper lobe most characteristic of a primary bronchogenic carcinoma. This would be amenable to CT-guided core biopsy. Further procedures and workup were placed on hold due to the patient's elevated INR: 2.9, on 01/16/17, the patient received 2 units of FFP. Patient went to IR for a internal/external biliary stent placement on 01/17/17 for persistent elevated bilirubin. In the afternoon on 01/18/17, the patient experienced a syncopal episode and hypotension when getting up from bed to go the bathroom, a HALICAT was called, she was given a 500ml bolus of NS and subsequently BP improved, CT biopsy of lung mass was placed on hold. Current plan is to complete lung biopsy when patient is stable just prior to discharge. Patient and family have expressed they would like to bring her back to [place] for treatment as the patient lives alone here in [place]. Palliative care was consulted to assist with communication and to establish goals of care. . Function/Cognitive Trajectory Patient was completely independent, living alone prior to this hospitalization. . Review of Systems Constitutional: COMPLAINS OF: Fatigue, Dizziness, Change in appetite, Generalized weakness Eyes: DENIES: Blurred vision, Vision loss Respiratory: COMPLAINS OF: Cough Cardiovascular: DENIES: Chest pain Gastrointestinal: DENIES: Abdominal pain, Diarrhea, Nausea, Vomiting Psychiatric: COMPLAINS OF: Anxiety Past Family Social History Coded Allergies: No Known Allergies (Verified , 03/13/15) Past Medical History Bladder cancer, s/p surgical resection, no radiation or chemo Past Surgical History Cystoscopy Bladder tumor resection Surgery for Zapien neuroma Reported Medications Reported Meds & Active Scripts Active No Active Prescriptions or Reported Medications Current Medications Medications (Trade) Dose Ordered Sig/Jason Route Start Time Stop Time Status Last Admin (NS Flush) 2 ml UNSCH PRN IV FLUSH 01/12/17 20:30 (NS Flush) 2 ml BID IV FLUSH 01/12/17 21:00 01/20/17 07:38 (Narcan Inj) 0.4 mg UNSCH PRN IV 01/12/17 20:30 (Xanax) 0.25 mg Q8H PRN PO 01/15/17 13:30 01/20/17 02:59 Diphenhydramine HCl 25 mg 25 mg HS PRN PO 01/17/17 19:00 01/19/17 21:42 (NS + KCl 20 Meq Inj) 1,000 ml @ 150 mls/hr Q6H40M IV 01/18/17 15:30 01/20/17 07:34 (Zofran Inj) 4 mg Q8HR PRN IV PUSH 01/19/17 12:30 01/19/17 19:21 (Roxicodone) 5 mg Q6H PRN PO 01/20/17 09:30 . Family History Father from Alzheimer's dementia. Mother of a twisted bowel in her 70s. Brother from colon cancer. Substance Use Tobacco: 1 PPD, for approximately 54 years. Alcohol: 4-5 beers daily, reported stopping 2 weeks ago Prescription med abuse: None. Illicits: None. . 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 She worked for the [employer] for some time during her younger years, she has five children who all live in [place]. She is a , her approximately 7 years ago, she currently lives alone. . Health Care Surrogate: Copy in medical record Date completed: 01/20/17. . Health Care Surrogate(s): Jasmyne Rubio (daughter): Bailey Joel ([facility], daughter): , . . Today's verbally stated goals: Patient's goals are aggressive, she would like to get well enough to travel back to [place] to be closer to her family and receive treatment for her cancer there. . Physical Exam Vital Signs Date Time Temp Pulse Resp B/P Pulse Ox O2 Delivery O2 Flow Rate FiO2 01/20/17 08:52 99 Room Air 01/20/17 08:00 97.3 92 20 130/61 100 01/20/17 07:58 Nasal Cannula 2.00 01/20/17 07:30 89 01/20/17 04:00 97.3 100 19 108/69 100 01/20/17 00:00 97.8 99 20 106/67 99 01/19/17 20:30 Nasal Cannula 4.00 01/19/17 20:00 105 01/19/17 20:00 97.1 98 20 132/64 99 01/19/17 16:00 97.3 113 18 121/76 98 8/17/17 12:00 97.2 104 18 117/70 100 . 01/19/17 01/20/17 19:00 07:00 Intake Total 360 ml 2063 ml Output Total 100 ml 1450 ml Balance 260 ml 613 ml Intake Oral 360 ml 240 ml IV Total 1823 ml Output Urine Total 100 ml 250 ml Drainage Total 1200 ml # Voids 0 # Bowel Movements 0 0 . Exam CONSTITUTIONAL/GENERAL: This is an elderly, frail, thin female patient, in no apparent distress. TUBES/LINES/DRAINS: RUE midline PIV, LUE PIV x 1, biliary drain draining clear, dark yellow fluid SKIN: Jaundice. Ecchymoses on upper extremities. No wounds seen anteriorly. Skin temperature appropriate. Not diaphoretic. HEAD: Atraumatic. Normocephalic. EYES: Pupils equal and round and reactive. Extraocular motions intact. Scleral icterus present. No injection or drainage. Fundi not examined. ENT: Hearing grossly normal. Nose without bleeding or purulent drainage. Throat without visible erythema, exudates, masses, or lesions. NECK: Trachea midline. Supple, nontender. CARDIOVASCULAR: Regular rate and rhythm without murmurs, gallops, or rubs. No JVD. Peripheral pulses symmetric. RESPIRATORY/CHEST: Symmetric, unlabored respirations. Clear to auscultation. Breath sounds equal bilaterally. No wheezes, rales, or rhonchi. GASTROINTESTINAL: Abdomen soft, flat, non-tender, nondistended. Bowel sounds present. GENITOURINARY: Without palpable bladder distension. MUSCULOSKELETAL: Extremities without clubbing, cyanosis, or edema. No mottling or clubbing. NEUROLOGICAL: Awake and alert. Motor and sensory grossly within normal limits. Follows commands. Intermittent forgetfulness. Moves all extremities. PSYCHIATRIC: No obvious anxiety/depression. no apparent hallucinations or other psychotic thought process. . Diagnostic Tests Laboratory Laboratory Tests Test 01/17/17 01/18/17 01/19/17 12:05 10:09 06:44 Prothrombin Time 13.4 SEC (9.8-11.6) Prothromb Time International 1.2 RATIO Ratio Activated Partial 30.6 SEC Thromboplast Time (24.3-30.1) White Blood Count 13.1 TH/MM3 18.0 TH/MM3 (4.0-11.0) (4.0-11.0) Red Blood Count 2.64 MIL/MM3 2.62 MIL/MM3 (4.00-5.30) (4.00-5.30) Hemoglobin 9.1 GM/DL 9.0 GM/DL (11.6-15.3) (11.6-15.3) Hematocrit 25.6 % 26.3 % (35.0-46.0) (35.0-46.0) Mean Corpuscular Volume 96.9 FL 100.5 FL (80.0-100.0) (80.0-100.0) Mean Corpuscular Hemoglobin 34.3 PG 34.5 PG (27.0-34.0) (27.0-34.0) Mean Corpuscular Hemoglobin 35.4 % 34.3 % Concent (32.0-36.0) (32.0-36.0) Red Cell Distribution Width 14.7 % 15.5 % (11.6-17.2) (11.6-17.2) Platelet Count 478 TH/MM3 614 TH/MM3 (150-450) (150-450) Mean Platelet Volume 9.7 FL 9.1 FL (7.0-11.0) (7.0-11.0) Neutrophils (%) (Auto) % (16.0-70.0) % (16.0-70.0) Lymphocytes (%) (Auto) % (9.0-44.0) % (9.0-44.0) Monocytes (%) (Auto) % (0.0-8.0) % (0.0-8.0) Eosinophils (%) (Auto) % (0.0-4.0) % (0.0-4.0) Basophils (%) (Auto) % (0.0-2.0) % (0.0-2.0) Neutrophils # (Auto) TH/MM3 TH/MM3 (1.8-7.7) (1.8-7.7) Lymphocytes # (Auto) TH/MM3 TH/MM3 (1.0-4.8) (1.0-4.8) Monocytes # (Auto) TH/MM3 (0-0.9) TH/MM3 (0-0.9) Eosinophils # (Auto) TH/MM3 (0-0.4) TH/MM3 (0-0.4) Basophils # (Auto) TH/MM3 (0-0.2) TH/MM3 (0-0.2) CBC Comment AUTO DIFF AUTO DIFF Differential Total Cells 100 100 Counted Neutrophils % (Manual) 66 % (16-70) 66 % (16-70) Band Neutrophils % 10 % (0-6) 10 % (0-6) Lymphocytes % 11 % (9-44) 14 % (9-44) Monocytes % 6 % (0-8) 6 % (0-8) Eosinophils % 2 % (0-4) 1 % (0-4) Basophils % 2 % (0-2) Neutrophils # (Manual) 10.3 TH/MM3 14.2 TH/MM3 (1.8-7.7) (1.8-7.7) Metamyelocytes 2 % (0-1) 1 % (0-1) Myelocytes 1 % (0-0) 2 % (0-0) Differential Comment FINAL DIFF FINAL DIFF MANUAL MANUAL Platelet Estimate NORMAL HIGH (NORMAL) (NORMAL) Platelet Morphology Comment NORMAL ENLARGED (NORMAL) (NORMAL) Target Cells 3+ (NORMAL) 1+ (NORMAL) Sodium Level 133 MEQ/L 131 MEQ/L (136-145) (136-145) Potassium Level 3.3 MEQ/L 3.8 MEQ/L (3.5-5.1) (3.5-5.1) Chloride Level 100 MEQ/L 102 MEQ/L (98-107) (98-107) Carbon Dioxide Level 23.0 MEQ/L 16.1 MEQ/L (21.0-32.0) (21.0-32.0) Anion Gap 10 MEQ/L (5-15) 13 MEQ/L (5-15) Blood Urea Nitrogen 11 MG/DL (7-18) 33 MG/DL (7-18) Creatinine 0.43 MG/DL 1.14 MG/DL (0.50-1.00) (0.50-1.00) Estimat Glomerular Filtration 145 ML/MIN 47 ML/MIN (>89) Rate (>89) Random Glucose 90 MG/DL 98 MG/DL (74-106) (74-106) Calcium Level 9.1 MG/DL 8.9 MG/DL (8.5-10.1) (8.5-10.1) Magnesium Level 2.0 MG/DL (1.5-2.5) Total Bilirubin 16.9 MG/DL 16.7 MG/DL (0.2-1.0) (0.2-1.0) Aspartate Amino Transf 146 U/L (15-37) 88 U/L (15-37) (AST/SGOT) Alanine Aminotransferase 228 U/L (10-53) 195 U/L (10-53) (ALT/SGPT) Alkaline Phosphatase 959 U/L 970 U/L (45-117) (45-117) Total Protein 7.1 GM/DL 7.6 GM/DL (6.4-8.2) (6.4-8.2) Albumin 2.5 GM/DL 2.8 GM/DL (3.4-5.0) (3.4-5.0) . Result Diagram: 01/19/17 0644 01/19/17 0644 Imaging Last 72 hours Impressions Consultation 01/18/17 0806 Signed Impressions: Service Date/Time: Wednesday, January 18, 2017 08:06 - CONCLUSION: Patient has a mass in the right lung, and most likely primary lung carcinoma. This can be biopsied percutaneously . I would wait until the patient's clinical status improved on biliary drainage. This could be biopsied the day prior to discharge as an outpatient. Please reconsult. Thank you for this consultation. Moody Washburn MD FACR . Procedures 01/17/17: Biliary stent, drain . Patient/Family Conference Present at Family Conference: Spoke to patient's daughter Bailey Joel via telephone all questions were answered to the best of my ability. . Family Conference Location: Telephone Issues Discussed: * Palliative care role, purpose, approach * Additional medical, psychosocial, and spiritual history * Patients general health, functional status, and cognitive changes in the months leading up to the current hospitalization * Patient/family understanding of the current medical problems * Patient/family understanding of prognosis * Patients goals of care as best understood from advance directives and/or conversations and/or values * Current medical treatment options and benefits/burdens of those options * Likely scenarios comparing ongoing aggressive care with a transition to comfort measures only * Questions answered to the best of my ability * Palliative care contact information provided * . 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 She worked for the [employer] for some time during her younger years, she has five children who all live in [place]. She is a , her approximately 7 years ago, she currently lives alone. Spiritual: Legal: None known. Ethical issues impacting care: None known. Important Contacts Jasmyne Rubio (HCS) (daughter): . Bailey Joel (Alternate HCS) (daughter): , [phone] Donna (daughter): [phone], [phone] Kwan Enriquez (neighbor): , Ashtyn (friend): Luci Jayce (friend): . . Prognosis Patient is a 71 year old female who has a history of bladder cancer approximately 1.5 years ago, she presented to the ED for generalized weakness, decreased appetite, and jaundice. During this hospital admission she was found to have an elevated bilirubin, MRCP:significant intrahepatic and extrahepatic biliary ductal dilatation, she subsequently had a biliary drain placed. Patient was found to have elevated tumor markers and a CT of chest showed a large lung mass. Prior to this hospitalization the patient was completely independent, however at this point she is extremely weak and debilitated. It is unlikely she will be able to care for herself. Prognosis is guarded pending further diagnostic testing and cancer staging. . Code Status: Full Code Plan * CODE STATUS: FULL CODE * Health care decision maker: Patient designated her daughter Jasmyne Rubio [phone] to serve as her HCS and her daughter Bailey Joel , [phone] as her alternate HCS. * GOALS ARE AGGRESSIVE. Patient and family have expressed they would like to bring her back to [place] for treatment as the patient lives alone here in [place]. * Symptom management: decreased appetite: secondary to patient's clinical condition. BMI: 19, albumin 2.9. Recommendations for appetite stimulant to improve patient's appetite. Dizziness: secondary to patient's clinical condition , dehydration, lack of adequate nutrition. No recommendations at this time. Generalized weakness: Patient is likely weak secondary to her clinical condition and current clinical status. Recommend a nutrient dense diet. PT/OT when patient is stable enough and willing to participate. * Patient's daughter reports patient has been observed coughing with oral intake. Speech was consulted for follow evaluation per family request. * Palliative care spoke with 2 daughters ( Jasmyne and Bailey) via telephone. * Palliative care will continue to follow to establish trust and provide support throughout this hospitalization. . Thank you for the opportunity to participate in the care of Ms. Membreno. Attestation To help prompt me to consider important information that might be impacting today's encounter and assessment, information from prior notes written by myself or my colleagues may have been "brought forward" into today's note. My signature on this note, however, is an attestation that I personally performed the exam, history, and/or decision-making noted today, and, unless otherwise indicated, the interactions with patient, family, and staff as well as the review of records all occurred today. I also attest that the listed assessment and stated plan reflect my best clinical judgment today based on the combination of historical information, prior notes, and today's exam/ interactions. When time spent is documented, it refers only to time spent today by the signer, or if indicated, combined time spent today by collaborating physician/nurse practitioner. Janel Malave Jan 20, 2017 10:29
[2017-01-20] MEDS ORDERED: SODIUM CHLOR 0.9% 1000 ML INJ 1,000 ML IV SCH (12:00)
--- NOTE | 2017-01-20 12:39 | PD.ONC.PN ---
Subjective Subjective Remarks Afebrile overnight. Patient resting in bed. Daughter and son at bedside. worried that her renal function is worsening. high output from biliary drain. Objective Data Date Time Temp Pulse Resp B/P Pulse Ox O2 Delivery O2 Flow Rate FiO2 01/20/17 08:52 99 Room Air 01/20/17 08:00 100 Nasal Cannula 2.00 01/20/17 08:00 97.3 92 20 130/61 100 01/20/17 07:58 Nasal Cannula 2.00 01/20/17 07:30 89 01/20/17 04:00 97.3 100 19 108/69 100 01/20/17 00:00 97.8 99 20 106/67 99 01/19/17 20:30 Nasal Cannula 4.00 01/19/17 20:00 105 01/19/17 20:00 97.1 98 20 132/64 99 01/19/17 16:00 97.3 113 18 121/76 98 01/20/17 01/20/17 01/20/17 07:00 15:00 23:00 Intake Total 735 ml Output Total 1100 ml Balance -365 ml Result Diagram: 01/19/17 0644 01/20/17 0735 Laboratory Results Laboratory Tests Test 01/20/17 07:35 Sodium Level 132 MEQ/L Potassium Level 5.0 MEQ/L Chloride Level 101 MEQ/L Carbon Dioxide Level 13.9 MEQ/L Anion Gap 17 MEQ/L Blood Urea Nitrogen 65 MG/DL Creatinine 3.07 MG/DL Estimat Glomerular Filtration 15 ML/MIN Rate Random Glucose 93 MG/DL Calcium Level 9.2 MG/DL Total Bilirubin 18.2 MG/DL Aspartate Amino Transf 64 U/L (AST/SGOT) Alanine Aminotransferase 154 U/L (ALT/SGPT) Alkaline Phosphatase 927 U/L Total Protein 8.0 GM/DL Albumin 2.9 GM/DL Administered Medications Medications (Trade) Dose Ordered Sig/Jason Route PRN Reason Start Time Stop Time Status Last Admin Dose Admin Sodium Chloride (NS Flush) 2 ml BID IV FLUSH 01/12/17 21:00 01/20/17 07:38 Alprazolam (Xanax) 0.25 mg Q8H PRN PO ANXIETY 01/15/17 13:30 01/20/17 02:59 Diphenhydramine HCl (Benadryl) 25 mg HS PRN PO INSOMNIA 01/17/17 19:00 01/19/17 21:42 Ondansetron HCl (Zofran Inj) 4 mg Q8HR PRN IV PUSH NAUSEA OR VOMITING 01/19/17 12:30 01/19/17 19:21 Oxycodone HCl 5 mg 5 mg Q6H PRN PO PAIN SCALE 4 TO 10 01/20/17 09:30 01/20/17 09:42 Sodium Chloride (NS 1000 ml Inj) 1,000 ml @ 100 mls/hr Q10H IV 01/20/17 12:00 01/20/17 12:11 Objective Remarks GENERAL: Frail elderly female supine in bed SKIN: Warm and dry. +jaundice HEAD: Normocephalic. EYES: ++ scleral icterus. No injection or drainage. NECK: Supple, trachea midline. CARDIOVASCULAR: Regular rate and rhythm RESPIRATORY: Breath sounds equal bilaterally. No accessory muscle use. GASTROINTESTINAL: Abdomen soft, non-tender, nondistended. EXTREMITIES: No cyanosis NEUROLOGICAL: awake and alert, normal speech. Assessment/Plan Problem List: (1) Lung mass Status: Acute Plan: -- CT on 01/15 shows 3.8x 3.7cm large spiculated mass found in the upper R lung -- History of superficial bladder cancer, followed with Dr Castillo. -- Plan for CT-guided biopsy once biliary drainage has decreased (2) Hyperbilirubinemia Status: Acute Plan: s/p PTC, bilirubin trending downward -- EUS--> benign duodenal stricture, duodenal mucosal irregularity, dilated pancreatic duct; dilated common bile duct --ERCP --> not completed d/t duodenal stricture. --MRCP 01-14--> significant intrahepatic and extrahepatic biliary ductal dilatation with no visualized mass, small distal tumor or stricture could be present pancreatic duct upper limits normal size, GB upper limits normal size with no evidence cholelithiasis. (3) Renal failure Status: Acute Plan: -->? pre-renal d/t high output from biliary drain --consult nephrology Assessment 71-year-old female with increasing jaundice admitted with abdominal pain Plan 1. consult nephrology 2. stop NS + KCL 3. monitor CBC, bilirubin d/w son, daughter, patient, Dr. Rojas, Dr. Roper Attending Statement The exam, history, and the medical decision-making described in the above note were completed with the assistance of the mid-level provider. I reviewed and agree with the findings presented. I attest that I had a [id number] encounter with the patient on the same day, and personally performed and documented my assessment and findings in the medical record. Ms. Membreno is a frail 71 yoF with a spiculated lung mass suspicious for malignancy pending biopsy and hyperbilirubinemia s/p placement of percutaneous drain. Renal function increased and nephrology is consulted. Will plan for biopsy of lung mass on Monday if improved. Problem Qualifiers (1) Renal failure: Robyn Stack Jan 20, 2017 12:39 Sera Roper MD Jan 20, 2017 18:03
--- NOTE | 2017-01-20 14:36 | PD.CONS ---
HPI Service Nephrology Consult Requested By Reason for Consult Acute Renal Failure Primary Care Physician No Primary Care Physician History of Present Illness This is a 71 y/o female patient. Her only PMH is bladder cancer, superficial, for which she follows with Dr. Castillo, that required bladder resection approximately 1-2 years ago. She had noticed her skin was dark along with her urine for several days, also her appetite was poor and she felt that she was losing weight, therefore came to ER for evaluation. On arrival she was significantly jaundice. Her renal function was normal but LFTs and bilirubin levels were elevated. Multiple imaging techniques were utilized including MRCP that revealed significant intrahepatic and extrahepatic biliary ductal dilatation with no visualized mass on this noncontrast study. A small distal tumor or stricture could not be excluded. Her tumor markers were also elevated, oncology was consulted for their opinion. She had percutaneous internal/ external stent and drain placement (biliary), no stone was visualized. A chest CT showed possible malignancy in her right upper lobe of her lung. She is on 0.9 % NS. Her creatinine began to elevate yesterday to 1.14, and is 3.07 today. She is making some urine but not as much as usual. She was given IV contrast on and again on 01/17. Earlier she was given IV Levaquin and Zosyn. We were consulted for management, and she is a full code. (Suki Garay) Review of Systems Constitutional: COMPLAINS OF: Fatigue, Change in appetite, DENIES: Fever Gastrointestinal: COMPLAINS OF: Nausea, DENIES: Abdominal pain, Constipation, Diarrhea, Vomiting Genitourinary: DENIES: Urinary frequency, Hematuria (Suki Garay) Past Family Social History Allergies: Coded Allergies: No Known Allergies (Verified , 03/13/15) Past Medical History Bladder cancer, s/p surgical resection, no radiation or chemo Past Surgical History Cystoscopy Bladder tumor resection Surgery for Zapien neuroma Reported Medications No home medications Active Ordered Medications Current Medications Medications (Trade) Dose Ordered Sig/Jason Route Start Time Stop Time Status Last Admin (NS Flush) 2 ml UNSCH PRN IV FLUSH 01/12/17 20:30 (NS Flush) 2 ml BID IV FLUSH 01/12/17 21:00 01/20/17 07:38 (Narcan Inj) 0.4 mg UNSCH PRN IV 8/10/17 20:30 (Xanax) 0.25 mg Q8H PRN PO 01/15/17 13:30 01/20/17 02:59 (Benadryl) 25 mg HS PRN PO 01/17/17 19:00 01/19/17 21:42 (Zofran Inj) 4 mg Q8HR PRN IV PUSH 01/19/17 12:30 01/19/17 19:21 Oxycodone HCl 5 mg 5 mg Q6H PRN PO 01/20/17 09:30 01/20/17 09:42 (NS 1000 ml Inj) 1,000 ml @ 100 mls/hr Q10H IV 01/20/17 12:00 01/20/17 12:11 Family History no hx of renal disorders Social History active daily smoker, 1 ppd active daily drinker, 6 drinks/day retired , lives alone from [place], considering moving back soon independent full code (Suki Garay) Physical Exam Vital Signs Vital Signs Date Time Temp Pulse Resp B/P Pulse Ox O2 Delivery O2 Flow Rate FiO2 01/20/17 12:00 96.0 92 18 122/64 99 01/20/17 08:52 99 Room Air 01/20/17 08:00 100 Nasal Cannula 2.00 01/20/17 08:00 97.3 92 20 130/61 100 01/20/17 07:58 Nasal Cannula 2.00 01/20/17 07:30 89 01/20/17 04:00 97.3 100 19 108/69 100 01/20/17 00:00 97.8 99 20 106/67 99 01/19/17 20:30 Nasal Cannula 4.00 01/19/17 20:00 105 01/19/17 20:00 97.1 98 20 132/64 99 01/19/17 16:00 97.3 113 18 121/76 98 Physical Exam Small framed female patient she is alert, oriented x 3 without neuro deficit CV: S1/S2, RRR no murmurs,gallops, or rubs Lungs; Clear in all dickson Abd: soft, non tender; biliary drain exiting from right flank Ext: no edema, distal pulses strong Skin: jaundice, icterus, skin intact Laboratory Laboratory Tests Test 01/20/17 07:35 Sodium Level 132 Potassium Level 5.0 Chloride Level 101 Carbon Dioxide Level 13.9 Anion Gap 17 Blood Urea Nitrogen 65 Creatinine 3.07 Estimat Glomerular Filtration 15 Rate Random Glucose 93 Calcium Level 9.2 Total Bilirubin 18.2 Aspartate Amino Transf 64 (AST/SGOT) Alanine Aminotransferase 154 (ALT/SGPT) Alkaline Phosphatase 927 Total Protein 8.0 Albumin 2.9 (Suki Garay) Result Diagram: 01/19/17 0644 01/20/17 0735 Imaging Last Impressions Consultation 01/18/17 0806 Signed Impressions: Service Date/Time: Wednesday, January 18, 2017 08:06 - CONCLUSION: Patient has a mass in the right lung, and most likely primary lung carcinoma. This can be biopsied percutaneously . I would wait until the patient's clinical status improved on biliary drainage. This could be biopsied the day prior to discharge as an outpatient. Please reconsult. Thank you for this consultation. Moody Washburn MD FACR Bile Duct Drainage 01/17/17 0000 Signed Impressions: Service Date/Time: Tuesday, January 17, 2017 13:27 - CONCLUSION: Uncomplicated internal/external biliary stent placement as above. The obstruction is at the level of the pancreatic head approaching the ampulla. No discrete stone observed. Kvng Craft Jr., MD Cholangiopancreatography MRI 01/14/17 0000 Signed Impressions: Service Date/Time: Saturday, January 14, 2017 08:31 - CONCLUSION: 1. Significant intrahepatic and extrahepatic biliary ductal dilatation with no visualized mass on this noncontrast study. A small distal tumor or stricture could be present. 2. The pancreatic duct is at the upper limits of normal in size. There is no visualized pancreatic lesion. 3. Large simple cyst again noted in the liver. There is a smaller cyst in the left lobe. 4. Small to moderate-sized hiatal hernia. 5. The gallbladder is at the upper limits of normal in size with no evidence of cholelithiasis. Oren Garduno MD Chest CT 01/14/17 0000 Signed Impressions: Service Date/Time: Sunday, January 15, 2017 08:38 - CONCLUSION: 1. Large spiculated soft tissue mass in the right upper lobe most characteristic of a primary bronchogenic carcinoma. This would be amenable to CT-guided core biopsy. 2. Pneumomediastinum is present. 3. Small pretracheal and periaortic lymph nodes noted but no definite adenopathy on this noncontrast exam. 4. Small pleural effusions left greater than right. 5. Underlying emphysema. Oren Garduno MD Abdomen/Pelvis CT 01/12/17 1716 Signed Impressions: Service Date/Time: January 19:16 - CONCLUSION: Abnormal common duct and distal pancreatic duct. MRCP would be of benefit Prominent gallbladder without obvious stones. Moody Washburn MD FACR (Suki Garay) Assessment and Plan Problem List: (1) Renal failure Plan: she has no prior history, renal function was normal on arrival she was exposed to IV contrast on 01/12 and again on 01/17, coinciding with rise in creatinine 48 hrs post administration also has had high output from drain with little oral intake allergic interstitial nephritis is also on the differential at this time she is on 0.9% , has developed anion gap metabolic acidosis change IVF to D5W with 100 mEq sodium bicarb at 75 cc/hr she is non oliguric, but actual urine output has not been charged, monitor for changes obtain renal US repeat UA avoid nephrotoxins, renally dose medications when appropriate repeat renal panel in AM (2) Lung cancer Plan: on imaging, mass identified in right upper lobe may require biopsy, oncology following, appreciate recommendations (3) Hyperbilirubinemia Plan: with transaminitis GI and hematology/oncology following s/p biliary drain MRCP on 01/17, distal tumor vs stricture appreciate further recommendations (Suki Garay) Problem List: (1) Renal failure Plan: she has no prior history, renal function was normal on arrival she was exposed to IV contrast on 01/12 and again on 01/17, coinciding with rise in creatinine 48 hrs post administration also has had high output from drain with little oral intake allergic interstitial nephritis is also on the differential at this time she is on 0.9% , has developed anion gap metabolic acidosis change IVF to D5W with 100 mEq sodium bicarb at 75 cc/hr she is non oliguric, but actual urine output has not been charged, monitor for changes obtain renal US repeat UA avoid nephrotoxins, renally dose medications when appropriate repeat renal panel in AM (2) Lung cancer Plan: on imaging, mass identified in right upper lobe may require biopsy, oncology following, appreciate recommendations (3) Hyperbilirubinemia Plan: with transaminitis GI and hematology/oncology following s/p biliary drain MRCP on 01/17, distal tumor vs stricture appreciate further recommendations Assessment and Plan patient was seen and examined. Chart reviewed. Admitted with jaundice, underwent CT and MRCP. Has biliary drain placed. Renal function was normal until the . Underwent contrast studies on and ? Has what appears to be primary bronchogenic carcinoma. Has history of bladder tumor. Renal US reveals unilateral, right sided hydronephrosis, mild. CT on the did not reveal hydronephrosis. Continue IVF. Quiñonez catheter. Avoid nephrotoxic agents. She is malnourished, appears to be in poor functional status. Prognosis is guarded. (Abdifatah Child MD) Problem Qualifiers (1) Renal failure: Suki Garay [facility] Jan 20, 2017 14:36 Abdifatah Child MD Jan 20, 2017 21:17
[2017-01-20 16:12] LABS: MEAN CELL VOLUME 100.1 FL (80.0-100.0); PLATELET COUNT 612 TH/MM3 (150-450); RED CELL DISTRIBUTION WIDTH 15.5 % (11.6-17.2)
[2017-01-20 16:17] LABS: HEMO FLAGS AUTO DIFF
[2017-01-20] MEDS: ONDANSETRON HCL 4 MG/2 ML VIAL IV PUSH PRN (16:20)
[2017-01-20] MEDS: SODIUM BICARBONATE 8.4% INJ 100 MEQ in DEXTROSE 5% IN WATE 1000ML INJ 1,000 ML IV SCH ×2 (16:22)
[2017-01-20 17:00] LABS: BANDS 3 % (0-6); PLATELET ESTIMATE SMEAR HIGH (NORMAL); PLATELET MORPHOLOGY NORMAL (NORMAL); POLYS (SEG NEUTROPHILS) 79 % (16-70); TARGET CELLS 1+ (NORMAL); WBC DIFF SAMPLE 100
[2017-01-20 17:01] LABS: SCAN/DIFF FINAL DIFF MANUAL
--- NOTE | 2017-01-20 20:37 | RADRPT ---
EXAM DATE/TIME: 01/20/2017 18:19 [place] COMPARISON: CT ABDOMEN & PELVIS W CONTRAST, January 12, 2017, 19:16. INDICATIONS : Increased BUN and creatnine. MEDICAL HISTORY : Hypertension. Gastroesophageal reflux disease. Hematuria. Neuroma right foot. Cataracts. SURGICAL HISTORY : Tonsillectomy. ENCOUNTER: Initial ACUITY: 1 day PAIN SCORE: 5/10 LOCATION: Bilateral flank MEASUREMENTS: RIGHT KIDNEY: 9.5 x 4.2 x 3.9 cm LEFT KIDNEY: 10.1 x 4.3 x 4.6 cm FINDINGS: Mild hydronephrosis has developed on the right, etiology uncertain. Left kidney is normal. Bilateral ureteral jets are seen. Urinary bladder is grossly unremarkable. CONCLUSION: Right side hydronephrosis, new and etiology uncertain. Ureteral jets are demonstrated and the hydrone phrosis is mild compatible with partial/low grade obstruction. Gonzalez Agosto MD on January 20, 2017 at 20:33 Board Certified Radiologist. This report was verified electronically.
[2017-01-21 00:44] VITALS: BP 102/65; PULSE 86; RESP 20; TEMP 97.7; O2SAT 98
[2017-01-21] MEDS: diphenhydrAMINE HCL 25 MG CAP PO PRN (00:46)
[2017-01-21 03:52] VITALS: BP 112/65; PULSE 88; RESP 15; TEMP 97.3; O2SAT 99
[2017-01-21] MEDS: SODIUM BICARBONATE 8.4% INJ 100 MEQ in DEXTROSE 5% IN WATE 1000ML INJ 1,000 ML IV SCH ×4 (07:41→23:46)
[2017-01-21 08:00] VITALS: BP 126/60; PULSE 81; PULSE 86; RESP 20; TEMP 97.1; O2SAT 99
[2017-01-21] MEDS: ALPRAZolam 0.25 MG TAB PO PRN (08:58)
[2017-01-21] MEDS: SODIUM CHLORIDE 0.9% FLUSH 10 ML FLUSH IV FLUSH SCH ×2 (09:00→21:00)
--- NOTE | 2017-01-21 10:36 | PD.ONC.PN ---
Subjective Subjective Remarks Afebrile overnight. Patient resting in bed in nad. Hoping to hear good news about her bilirubin and kidney function. Objective Data Date Time Temp Pulse Resp B/P Pulse Ox O2 Delivery O2 Flow Rate FiO2 01/21/17 08:00 97.1 86 20 126/60 99 01/21/17 03:52 97.3 88 15 112/65 99 01/21/17 00:44 97.7 86 20 102/65 98 01/20/17 20:39 97.4 93 13 113/62 99 01/20/17 20:30 99 Room Air 01/20/17 20:00 87 01/20/17 16:00 Room Air 01/20/17 16:00 97.4 92 20 135/63 100 01/20/17 12:00 96.0 92 18 122/64 99 01/20/17 12:00 Room Air 01/21/17 01/21/17 01/21/17 06:59 14:59 22:59 Intake Total 683 ml Output Total 325 ml Balance 358 ml Result Diagram: 01/20/17 1556 01/20/17 0735 Laboratory Results Laboratory Tests Test 01/20/17 15:56 White Blood Count 22.0 TH/MM3 Red Blood Count 2.90 MIL/MM3 Hemoglobin 9.9 GM/DL Hematocrit 29.0 % Mean Corpuscular Volume 100.1 FL Mean Corpuscular Hemoglobin 34.0 PG Mean Corpuscular Hemoglobin 34.0 % Concent Red Cell Distribution Width 15.5 % Platelet Count 612 TH/MM3 Mean Platelet Volume 9.0 FL Neutrophils (%) (Auto) % Lymphocytes (%) (Auto) % Monocytes (%) (Auto) % Eosinophils (%) (Auto) % Basophils (%) (Auto) % Neutrophils # (Auto) TH/MM3 Lymphocytes # (Auto) TH/MM3 Monocytes # (Auto) TH/MM3 Eosinophils # (Auto) TH/MM3 Basophils # (Auto) TH/MM3 CBC Comment AUTO DIFF Differential Total Cells 100 Counted Neutrophils % (Manual) 79 % Band Neutrophils % 3 % Lymphocytes % 9 % Monocytes % 9 % Neutrophils # (Manual) 18.0 TH/MM3 Differential Comment FINAL DIFF MANUAL Platelet Estimate HIGH Platelet Morphology Comment NORMAL Target Cells 1+ Administered Medications Medications (Trade) Dose Ordered Sig/Jason Route PRN Reason Start Time Stop Time Status Last Admin Dose Admin Sodium Chloride (NS Flush) 2 ml BID IV FLUSH 01/12/17 21:00 01/20/17 07:38 Alprazolam (Xanax) 0.25 mg Q8H PRN PO ANXIETY 01/15/17 13:30 01/21/17 08:58 Diphenhydramine HCl (Benadryl) 25 mg HS PRN PO INSOMNIA 01/17/17 19:00 01/21/17 00:46 Ondansetron HCl (Zofran Inj) 4 mg Q8HR PRN IV PUSH NAUSEA OR VOMITING 01/19/17 12:30 01/20/17 16:20 Oxycodone HCl 5 mg 5 mg Q6H PRN PO PAIN SCALE 4 TO 10 01/20/17 09:30 01/20/17 09:42 Sodium Bicarbonate/ Dextrose (Sodium Bicarbonate 8.4% Inj/D5W 1000 ml Inj) 1,100 ml @ 75 mls/hr [id number] IV 01/20/17 17:00 01/21/17 07:41 Objective Remarks GENERAL: Frail elderly severely jaundiced female supine in bed SKIN: Warm and dry. +jaundice HEAD: Normocephalic. EYES: ++ scleral icterus. No injection or drainage. NECK: Supple, trachea midline. CARDIOVASCULAR: Regular rate and rhythm RESPIRATORY: Breath sounds equal bilaterally. No accessory muscle use. GASTROINTESTINAL: Abdomen soft, mildly distended. EXTREMITIES: No cyanosis NEUROLOGICAL: awake and alert, normal speech. Assessment/Plan Problem List: (1) Lung mass Status: Acute Plan: -- CT on 01/15 shows 3.8x 3.7cm large spiculated mass found in the upper R lung -- History of superficial bladder cancer, followed with Dr Castillo. -- Plan for CT-guided biopsy once biliary drainage has decreased (2) Hyperbilirubinemia Status: Acute Plan: s/p PTC, bilirubin trending downward -- EUS--> benign duodenal stricture, duodenal mucosal irregularity, dilated pancreatic duct; dilated common bile duct --ERCP --> not completed d/t duodenal stricture. --MRCP 01-14--> significant intrahepatic and extrahepatic biliary ductal dilatation with no visualized mass, small distal tumor or stricture could be present pancreatic duct upper limits normal size, GB upper limits normal size with no evidence cholelithiasis. (3) Renal failure Status: Acute Plan: -->? pre-renal d/t high output from biliary drain --nephrology following. Assessment 71-year-old female with increasing jaundice admitted with abdominal pain Plan 1. await labs today 2. monitor CBC, CMP 3. plan for CT guided lung biopsy on Monday Attending Statement The exam, history, and the medical decision-making described in the above note were completed with the assistance of the mid-level provider. I reviewed and agree with the findings presented. I attest that I had a [id number] encounter with the patient on the same day, and personally performed and documented my assessment and findings in the medical record Feels weak/Hb lower today transfuse 1 unit of prbc plan for lung biopsy on monday malnutrition/hypoalbuminemia window framer consult encourage oral intake ensure or boost tid with meals d/w rn Problem Qualifiers (1) Renal failure: Robyn Stack Jan 21, 2017 10:36 Raghav Bass MD Jan 21, 2017 23:58
[2017-01-21 12:00] VITALS: BP 113/68; PULSE 97; RESP 20; TEMP 97.9; O2SAT 98
--- NOTE | 2017-01-21 12:07 | HHI.PR ---
Subjective Remarks No acute events overnight. Afebrile, vital signs stable. Patient complains of intermittent nausea and partial emesis with coughing. Also having difficulty with swallowing, coughing each time she takes a sip of liquid. States she feels weak. Denies chest pain/shortness of breath. Objective Vitals Vital Signs Date Time Temp Pulse Resp B/P Pulse Ox O2 Delivery O2 Flow Rate FiO2 01/21/17 08:00 97.1 86 20 126/60 99 01/21/17 03:52 97.3 88 15 112/65 99 01/21/17 00:44 97.7 86 20 102/65 98 01/20/17 20:39 97.4 93 13 113/62 99 01/20/17 20:30 99 Room Air 01/20/17 20:00 87 01/20/17 16:00 Room Air 01/20/17 16:00 97.4 92 20 135/63 100 I/O 01/20/17 01/20/17 01/20/17 01/21/17 01/21/17 01/21/17 07:00 15:00 23:00 07:00 15:00 23:00 Intake Total 735 ml 1228 ml 683 ml 683 ml Output Total 1100 ml 1440 ml 50 ml 325 ml Balance -365 ml -212 ml 633 ml 358 ml Intake Oral 0 ml 120 ml 120 ml 30 ml IV Total 735 ml 1108 ml 563 ml 653 ml Output Urine Total 250 ml 440 ml 20 ml 325 ml Drainage Total 850 ml 1000 ml 30 ml 0 ml # Bowel Movements 0 0 1 0 Result Diagram: 01/20/17 1556 01/20/17 0735 Objective Remarks General: Thin female in no acute distress. Jaundiced. HEENT: Scleral icterus noted. Heart: Tachycardic. No murmur. Lungs: Clear to auscultation bilaterally. No wheezes, rales, or rhonchi. Breathing is nonlabored. Abdomen: Soft, nontender, nondistended. Biliary drain in place. Extremities: No lower extremity edema. Psych: Alert and oriented. Procedures 01/17/17 biliary drain placement A/P Problem List: (1) Jaundice ICD Code: R17 Status: Acute (2) Hyperbilirubinemia ICD Code: E80.6 Status: Acute (3) Transaminitis ICD Code: R74.0 Status: Acute (4) Leukocytosis ICD Code: D72.829 Status: Acute (5) Hyponatremia ICD Code: E87.1 Status: Acute (6) Mild anemia ICD Code: D64.9 Status: Acute (7) Lung mass ICD Code: R91.8 Status: Acute (8) Hypotension ICD Code: I95.9 Status: Acute (9) Dehydration ICD Code: E86.0 Status: Acute Assessment and Plan 1. Jaundice, painless: Total bilirubin, AST, & ALT are trending down. Labs are pending today. Appreciate GI recommendations. S/P EGD with EUS. 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 S/P MRCP. Biliary drain placed, draining well. 2. ANCELMO: Likely 2/2 dehydration given large biliary drain output. Nephrology following. IVF hydration. 3. Leukocytosis: No other signs of infection at this time. Follow labs. 4. Hyponatremia: Continue normal saline. 5. Normocytic anemia: Monitor labs. 6. DVT prophylaxis: SCDs, CHRIS hose. 7. Hypokalemia: Resolved 8. Lung mass: Large spiculated soft tissue mass in the right upper lobe most characteristic of a primary bronchogenic carcinoma. CT-guided biopsy to be done Monday. Appreciate oncology recommendations. CEA, CA-19-9, and CA-125 are elevated. 9. Coagulopathy: INR is decreased following administration of FFP. 10. Hypotension, lightheadedness: Continue IV fluids. Discharge Planning Pending lung biopsy. Craole Govea MD R3 Jan 21, 2017 12:06
[2017-01-21 12:21] LABS: HEMATOCRIT 22.8 % (35.0-46.0); MEAN CELL VOLUME 99.5 FL (80.0-100.0); MEAN CORPUSCULAR HEMOGLOBIN 35.2 PG (27.0-34.0); MEAN CORPUSCULAR HGB CONC 35.4 % (32.0-36.0); PLATELET COUNT 573 TH/MM3 (150-450); RED BLOOD COUNT 2.29 MIL/MM3 (4.00-5.30); RED CELL DISTRIBUTION WIDTH 15.2 % (11.6-17.2); WHITE BLOOD COUNT 15.4 TH/MM3 (4.0-11.0)
[2017-01-21 12:26] LABS: HEMO FLAGS AUTO DIFF
[2017-01-21 12:46] LABS: ALKALINE PHOSPHATASE 675 U/L (45-117); ALT (GPT) 109 U/L (10-53); ANION GAP 11 MEQ/L (5-15); AST (GOT) 62 U/L (15-37); BICARBONATE 26.3 MEQ/L (21.0-32.0); BLOOD UREA NITROGEN 55 MG/DL (7-18); CHLORIDE 98 MEQ/L (98-107); GLOMERULAR FILTRATION RATE 31 ML/MIN (>89); POTASSIUM 3.5 MEQ/L (3.5-5.1); SODIUM (NA) 135 MEQ/L (136-145); TOTAL BILIRUBIN ADULT 15.6 MG/DL (0.2-1.0)
[2017-01-21 13:16] LABS: BANDS 1 % (0-6); EOSINOPHILS 1 % (0-4); MYELOCYTES 1 % (0-0); NEUTROPHIL # MANUAL DIFF 11.2 TH/MM3 (1.8-7.7); POLYS (SEG NEUTROPHILS) 71 % (16-70); WBC DIFF SAMPLE 100
[2017-01-21 13:17] LABS: PLATELET ESTIMATE SMEAR HIGH (NORMAL); PLATELET MORPHOLOGY NORMAL (NORMAL); SCAN/DIFF FINAL DIFF MANUAL; TARGET CELLS 2+ (NORMAL)
[2017-01-21 16:00] VITALS: BP 112/58; PULSE 89; RESP 20; TEMP 97.3; O2SAT 100
--- NOTE | 2017-01-21 19:55 | HHI.NPPN ---
Subjective Additional Remarks Feels tired, no acute complaints Objective Data Data 01/20/17 01/21/17 19:00 07:00 Intake Total 1228 ml 1366 ml Output Total 1440 ml 375 ml Balance -212 ml 991 ml Intake Oral 120 ml 150 ml IV Total 1108 ml 1216 ml Output Urine Total 440 ml 345 ml Drainage Total 1000 ml 30 ml # Bowel Movements 0 1 Vital Signs Date Time Temp Pulse Resp B/P Pulse Ox O2 Delivery O2 Flow Rate FiO2 01/21/17 16:00 97.3 89 20 112/58 100 01/21/17 12:00 97.9 97 20 113/68 98 01/21/17 08:00 81 01/21/17 08:00 97.1 86 20 126/60 99 01/21/17 08:00 96 Room Air 01/21/17 03:52 97.3 88 15 112/65 99 01/21/17 00:44 97.7 86 20 102/65 98 01/20/17 20:39 97.4 93 13 113/62 99 01/20/17 20:30 99 Room Air 01/20/17 20:00 87 -: 01/21/17 1130 01/21/17 1130 Physical Exam General Appearance: No Acute Distress Throat Throat Exam: Oral Mucosa [place] & Moist Neck Neck Exam: Neck Supple Pulmonary Resp Exam: Clear Bilaterally, Decreased Bases Cardiology CV Exam: Regular Gastrointestinal/Abdomen GI Exam: Soft, Non-Tender, Bowel Sounds Present Integumentary Skin Exam: Dry, Intact Extremeties Extremities Exam: No Edema Neurologic Neuro Exam: Alert, Awake, Oriented, Speech Clear, Moving All Extremities Psychiatric Psych Exam: Appropriate Responses Assessment/Plan Problem List: (1) Renal failure Plan: she has no prior history, renal function was normal on arrival ANCELMO due to contrast, high output biliary drain. Creatinine, acidosis improving with IVFs. Right-sided hydronephrosis was seen on renal ultrasound - limon catheter in place now. Unclear hydronephrosis etiology, not noted on prior CT. May consider eventual repeat ultrasound, if necessary. Will change IVFs to NS at 70cc/hour. avoid nephrotoxins, renally dose medications when appropriate repeat renal panel in AM (2) Lung cancer Plan: on imaging, mass identified in right upper lobe may require biopsy, oncology following, appreciate recommendations Plan biopsy Monday (3) Hyperbilirubinemia Plan: with transaminitis GI and hematology/oncology following s/p biliary drain MRCP on 01/17, distal tumor vs stricture appreciate further recommendations Problem Qualifiers (1) Renal failure: Wayne Patel MD Jan 21, 2017 19:55
[2017-01-21 20:00] VITALS: BP 109/55; PULSE 91; RESP 18; TEMP 98.2; O2SAT 100
[2017-01-22] VITALS: BP 92/51; PULSE 89; RESP 17; TEMP 97.8; O2SAT 94
[2017-01-22] MEDS ORDERED: ACETAMINOPHEN 325 MG TAB PO ONE
[2017-01-22] MEDS ORDERED: diphenhydrAMINE HCL 25 MG CAP PO ONE
[2017-01-22 04:00] VITALS: BP 92/51; PULSE 90; RESP 19; TEMP 98.2; O2SAT 96
[2017-01-22 05:57] LABS: HEMATOCRIT 21.3 % (35.0-46.0); MEAN CELL VOLUME 98.2 FL (80.0-100.0); MEAN CORPUSCULAR HEMOGLOBIN 34.5 PG (27.0-34.0); MEAN CORPUSCULAR HGB CONC 35.1 % (32.0-36.0); PLATELET COUNT 551 TH/MM3 (150-450); RED BLOOD COUNT 2.17 MIL/MM3 (4.00-5.30); RED CELL DISTRIBUTION WIDTH 15.3 % (11.6-17.2); WHITE BLOOD COUNT 13.5 TH/MM3 (4.0-11.0)
[2017-01-22 05:58] LABS: HEMO FLAGS AUTO DIFF
[2017-01-22 06:44] LABS: ALKALINE PHOSPHATASE 591 U/L (45-117); ALT (GPT) 89 U/L (10-53); ANION GAP 8 MEQ/L (5-15); AST (GOT) 64 U/L (15-37); BICARBONATE 33.9 MEQ/L (21.0-32.0); BLOOD UREA NITROGEN 32 MG/DL (7-18); CHLORIDE 91 MEQ/L (98-107); GLOMERULAR FILTRATION RATE 59 ML/MIN (>89); SODIUM (NA) 133 MEQ/L (136-145); TOTAL BILIRUBIN ADULT 13.3 MG/DL (0.2-1.0)
[2017-01-22 07:05] LABS: BASOPHILS 2 % (0-2); EOSINOPHILS 1 % (0-4); NEUTROPHIL # MANUAL DIFF 9.2 TH/MM3 (1.8-7.7); PLATELET ESTIMATE SMEAR HIGH (NORMAL); PLATELET MORPHOLOGY NORMAL (NORMAL); POLYS (SEG NEUTROPHILS) 68 % (16-70); SCAN/DIFF FINAL DIFF MANUAL; TARGET CELLS 2+ (NORMAL); WBC DIFF SAMPLE 100
[2017-01-22 07:11] VITALS: PULSE 87
[2017-01-22] MEDS: SODIUM CHLORIDE 0.9% FLUSH 10 ML FLUSH IV FLUSH SCH ×2 (09:00→20:35)
--- NOTE | 2017-01-22 13:14 | HHI.PR ---
Subjective Remarks No acute events overnight. Afebrile, vital signs stable. Patient continues to complain of fatigue and lethargy. Denies shortness of breath or difficulty breathing. Denies fever/chills. Objective Vitals Vital Signs Date Time Temp Pulse Resp B/P (MAP) Pulse Ox O2 Delivery O2 Flow Rate FiO2 01/22/17 07:52 96 Room Air 01/22/17 07:11 87 01/22/17 04:00 98.2 90 19 92/51 (65) 96 01/22/17 00:00 97.8 89 17 92/51 (65) 94 01/21/17 20:00 96 Room Air 01/21/17 20:00 98.2 91 18 109/55 (73) 100 01/21/17 16:00 97.3 89 20 112/58 (76) 100 I/O 01/21/17 01/21/17 01/21/17 01/22/17 01/22/17 01/22/17 07:00 15:00 23:00 07:00 15:00 23:00 Intake Total 683 ml 240 ml 120 ml 3461 ml Output Total 325 ml 550 ml 400 ml 950 ml Balance 358 ml -310 ml -280 ml 2511 ml Intake Oral 30 ml 240 ml 120 ml 120 ml IV Total 653 ml 3341 ml Output Urine Total 325 ml 550 ml 400 ml 250 ml Drainage Total 0 ml 700 ml # Bowel Movements 0 0 0 0 Result Diagram: 01/22/1736 01/22/17535 Objective Remarks General: Thin female in no acute distress. Jaundiced. HEENT: Scleral icterus noted. Heart: Tachycardic. No murmur. Lungs: Clear to auscultation bilaterally. No wheezes, rales, or rhonchi. Breathing is nonlabored. Abdomen: Soft, nontender, nondistended. Biliary drain in place. Extremities: No lower extremity edema. Psych: Alert and oriented. Procedures 01/17/17 biliary drain placement A/P Problem List: (1) Jaundice ICD Code: R17 - Unspecified jaundice Status: Acute (2) Hyperbilirubinemia ICD Code: E80.6 - Other disorders of bilirubin metabolism Status: Acute (3) Transaminitis ICD Code: R74.0 - Nonspecific elevation of levels of transaminase and lactic acid dehydrogenase [LDH] Status: Acute (4) Leukocytosis ICD Code: D72.829 - Elevated white blood cell count, unspecified Status: Acute (5) Hyponatremia ICD Code: E87.1 - Hypo-osmolality and hyponatremia Status: Acute (6) Mild anemia ICD Code: D64.9 - Anemia, unspecified Status: Acute (7) Lung mass ICD Code: R91.8 - Other nonspecific abnormal finding of lung field Status: Acute (8) Hypotension ICD Code: I95.9 - Hypotension, unspecified Status: Acute (9) Dehydration ICD Code: E86.0 - Dehydration Status: Acute Assessment and Plan 1. Jaundice, painless: Total bilirubin, AST, & ALT are trending down. Appreciate GI recommendations. S/P EGD with EUS. 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 S/P MRCP. Biliary drain placed, draining well. 2. ANCELMO: Likely 2/2 dehydration given large biliary drain output. Nephrology following. IVF hydration. Resolving. 3. Leukocytosis: No other signs of infection at this time. Follow labs. 4. Hyponatremia: Continue normal saline. 5. Normocytic anemia: Monitor labs. 6. DVT prophylaxis: SCDs, CHRIS hose. 7. Hypokalemia: Resolved 8. Lung mass: Large spiculated soft tissue mass in the right upper lobe most characteristic of a primary bronchogenic carcinoma. CT-guided biopsy to be done Monday. Appreciate oncology recommendations. CEA, CA-19-9, and CA-125 are elevated. 9. Coagulopathy: INR is decreased following administration of FFP. 10. Hypotension, lightheadedness: Continue IV fluids. 11. Anemia: Patient's hemoglobin 7.5 today. Transfusing 1 unit packed red blood cells per hematology. No signs of active bleeding. Discharge Planning Pending lung biopsy. Carole Govea MD R3 Jan 22, 2017 13:14
--- NOTE | 2017-01-22 14:46 | PD.ONC.PN ---
Subjective Subjective Remarks Afebrile overnight. patient resting in bed in nad. renal fxn improving. bilirubin improving. patient seen at 10AM, late entry d/t meditech downtime Objective Data Date Time Temp Pulse Resp B/P (MAP) Pulse Ox O2 Delivery O2 Flow Rate FiO2 01/22/17 07:52 96 Room Air 01/22/17 07:11 87 01/22/17 04:00 98.2 90 19 92/51 (65) 96 01/22/17 00:00 97.8 89 17 92/51 (65) 94 01/21/17 20:00 96 Room Air 01/21/17 20:00 98.2 91 18 109/55 (73) 100 01/21/17 16:00 97.3 89 20 112/58 (76) 100 01/22/17 01/22/17 01/22/17 07:00 15:00 23:00 Intake Total 3461 ml Output Total 950 ml Balance 2511 ml Result Diagram: 01/22/17 0536 01/22/17 0536 Laboratory Results Laboratory Tests Test 01/22/17 05:36 White Blood Count 13.5 TH/MM3 Red Blood Count 2.17 MIL/MM3 Hemoglobin 7.5 GM/DL Hematocrit 21.3 % Mean Corpuscular Volume 98.2 FL Mean Corpuscular Hemoglobin 34.5 PG Mean Corpuscular Hemoglobin Concent 35.1 % Red Cell Distribution Width 15.3 % Platelet Count 551 TH/MM3 Mean Platelet Volume 8.9 FL Neutrophils (%) (Auto) % Lymphocytes (%) (Auto) % Monocytes (%) (Auto) % Eosinophils (%) (Auto) % Basophils (%) (Auto) % Neutrophils # (Auto) TH/MM3 Lymphocytes # (Auto) TH/MM3 Monocytes # (Auto) TH/MM3 Eosinophils # (Auto) TH/MM3 Basophils # (Auto) TH/MM3 CBC Comment AUTO DIFF Differential Total Cells Counted 100 Neutrophils % (Manual) 68 % Lymphocytes % 18 % Monocytes % 11 % Eosinophils % 1 % Basophils % 2 % Neutrophils # (Manual) 9.2 TH/MM3 Differential Comment FINAL DIFF MANUAL Platelet Estimate HIGH Platelet Morphology Comment NORMAL Target Cells 2+ Red Cell Morphology Comment Blood Urea Nitrogen 32 MG/DL Creatinine 0.94 MG/DL Random Glucose 125 MG/DL Total Protein 6.3 GM/DL Albumin 2.2 GM/DL Calcium Level 8.4 MG/DL Alkaline Phosphatase 591 U/L Aspartate Amino Transf (AST/SGOT) 64 U/L Alanine Aminotransferase (ALT/SGPT) 89 U/L Total Bilirubin 13.3 MG/DL Sodium Level 133 MEQ/L Potassium Level 3.0 MEQ/L Chloride Level 91 MEQ/L Carbon Dioxide Level 33.9 MEQ/L Anion Gap 8 MEQ/L Estimat Glomerular Filtration Rate 59 ML/MIN Administered Medications Medications (Trade) Dose Ordered Sig/Jason Route PRN Reason Start Time Stop Time Status Last Admin Dose Admin Sodium Chloride (NS Flush) 2 ml BID IV FLUSH 01/12/17 21:00 01/20/17 07:38 Alprazolam (Xanax) 0.25 mg Q8H PRN PO ANXIETY 01/15/17 13:30 01/21/17 08:58 Diphenhydramine HCl (Benadryl) 25 mg HS PRN PO INSOMNIA 01/17/17 19:00 01/21/17 00:46 Ondansetron HCl (Zofran Inj) 4 mg Q8HR PRN IV PUSH NAUSEA OR VOMITING 01/19/17 12:30 01/20/17 16:20 Oxycodone HCl (Roxicodone) 5 mg Q6H PRN PO PAIN SCALE 4 TO 10 01/20/17 09:30 01/20/17 09:42 Sodium Bicarbonate 100 meq/Dextrose 1,100 ml @ 75 mls/hr [id number] IV 01/20/17 17:00 01/21/17 23:46 Objective Remarks GENERAL: Frail elderly female supine in bed SKIN: Warm and dry. +jaundice HEAD: Normocephalic. EYES: ++ scleral icterus. No injection or drainage. NECK: Supple, trachea midline. CARDIOVASCULAR: Regular rate and rhythm RESPIRATORY: Breath sounds equal bilaterally. No accessory muscle use. GASTROINTESTINAL: Abdomen soft, mildly distended. EXTREMITIES: No cyanosis NEUROLOGICAL: awake and alert, normal speech. Assessment/Plan Problem List: (1) Lung mass ICD Codes: R91.8 - Other nonspecific abnormal finding of lung field Status: Acute Plan: -- CT on 01/15 shows 3.8x 3.7cm large spiculated mass found in the upper R lung -- History of superficial bladder cancer, followed with Dr Castillo. -- Plan for CT-guided biopsy once biliary drainage has decreased (2) Hyperbilirubinemia ICD Codes: E80.6 - Other disorders of bilirubin metabolism Status: Acute Plan: s/p PTC, bilirubin trending downward -- EUS--> benign duodenal stricture, duodenal mucosal irregularity, dilated pancreatic duct; dilated common bile duct --ERCP --> not completed d/t duodenal stricture. --MRCP 8-12--> significant intrahepatic and extrahepatic biliary ductal dilatation with no visualized mass, small distal tumor or stricture could be present pancreatic duct upper limits normal size, GB upper limits normal size with no evidence cholelithiasis. Assessment 71-year-old female with increasing jaundice admitted with abdominal pain Plan 1. monitor CBC, CMP 2. plan for CT guided lung biopsy once bilirubin improved Attending Statement The exam, history, and the medical decision-making described in the above note were completed with the assistance of the mid-level provider. I reviewed and agree with the findings presented. I attest that I had a [id number] encounter with the patient on the same day, and personally performed and documented my assessment and findings in the medical record Robyn Stack Jan 22, 2017 14:46 Raghav Bass MD Jan 22, 2017 17:55
[2017-01-22 16:11] VITALS: BP 118/62; PULSE 84; RESP 19; TEMP 97.5; O2SAT 99
--- NOTE | 2017-01-22 17:16 | HHI.NPPN ---
Subjective Additional Remarks Feels tired, no acute complaints Objective Data Data 01/22/17 01/23/17 19:00 07:00 Output Total 525 ml Balance -525 ml Drainage Total 525 ml Vital Signs Date Time Temp Pulse Resp B/P (MAP) Pulse Ox O2 Delivery O2 Flow Rate FiO2 01/22/17 07:52 96 Room Air 01/22/17 07:11 87 01/22/17 04:00 98.2 90 19 92/51 (65) 96 01/22/17 00:00 97.8 89 17 92/51 (65) 94 01/21/17 20:00 96 Room Air 01/21/17 20:00 98.2 91 18 109/55 (73) 100 -: 01/22/17 0536 01/22/17 0536 Physical Exam General Appearance: No Acute Distress Throat Throat Exam: Oral Mucosa [place] & Moist Neck Neck Exam: Neck Supple Pulmonary Resp Exam: Clear Bilaterally, Decreased Bases Cardiology CV Exam: Regular Gastrointestinal/Abdomen GI Exam: Soft, Non-Tender, Bowel Sounds Present Integumentary Skin Exam: Dry, Intact Extremeties Extremities Exam: No Edema Neurologic Neuro Exam: Alert, Awake, Oriented, Speech Clear, Moving All Extremities Psychiatric Psych Exam: Appropriate Responses Assessment/Plan Problem List: (1) Renal failure ICD Codes: N19 - Unspecified kidney failure Status: Acute Plan: she has no prior history, renal function was normal on arrival ANCELMO due to contrast, high output biliary drain. Creatinine, acidosis improving with IVFs. Right-sided hydronephrosis was seen on renal ultrasound - limon catheter in place now. Unclear hydronephrosis etiology, not noted on prior CT. May consider eventual repeat ultrasound, if necessary. Continues NS at 70cc/hour. May consider to d/c IVFs tomorrow. avoid nephrotoxins, renally dose medications when appropriate repeat renal panel in AM (2) Lung cancer ICD Codes: C34.90 - Malignant neoplasm of unspecified part of unspecified bronchus or lung Status: Acute Plan: on imaging, mass identified in right upper lobe may require biopsy, oncology following, appreciate recommendations Plan biopsy Monday (3) Hyperbilirubinemia ICD Codes: E80.6 - Other disorders of bilirubin metabolism Status: Acute Plan: with transaminitis GI and hematology/oncology following s/p biliary drain MRCP on 01/17, distal tumor vs stricture appreciate further recommendations Problem Qualifiers (1) Renal failure: Wayne Patel MD Jan 22, 2017 17:16
[2017-01-22] MEDS: ALPRAZolam 0.25 MG TAB PO PRN (18:43)
[2017-01-22 20:00] VITALS: BP 119/64; PULSE 84; RESP 19; TEMP 97.7; O2SAT 98
[2017-01-22] MEDS: SODIUM BICARBONATE 8.4% INJ 100 MEQ in DEXTROSE 5% IN WATE 1000ML INJ 1,000 ML IV SCH ×2 (20:31)
[2017-01-22] MEDS: diphenhydrAMINE HCL 25 MG CAP PO PRN (20:32)
[2017-01-23] VITALS (8 sets, daily range): BP systolic 105–117; BP diastolic 57–68; PULSE 74–101; RESP 15–20; TEMP 97.5–98.6; O2SAT 95–99
[2017-01-23] MEDS: SODIUM BICARBONATE 8.4% INJ 100 MEQ in DEXTROSE 5% IN WATE 1000ML INJ 1,000 ML IV SCH ×2 (04:37)
[2017-01-23 08:29] LABS: HEMATOCRIT 29.2 % (35.0-46.0); MEAN CELL VOLUME 91.8 FL (80.0-100.0); MEAN CORPUSCULAR HEMOGLOBIN 32.2 PG (27.0-34.0); MEAN CORPUSCULAR HGB CONC 35.1 % (32.0-36.0); PLATELET COUNT 520 TH/MM3 (150-450); RED BLOOD COUNT 3.18 MIL/MM3 (4.00-5.30); RED CELL DISTRIBUTION WIDTH 21.1 % (11.6-17.2); WHITE BLOOD COUNT 15.1 TH/MM3 (4.0-11.0)
[2017-01-23 08:52] LABS: ALKALINE PHOSPHATASE 564 U/L (45-117); ALT (GPT) 79 U/L (10-53); ANION GAP 11 MEQ/L (5-15); AST (GOT) 59 U/L (15-37); BICARBONATE 37.5 MEQ/L (21.0-32.0); BLOOD UREA NITROGEN 23 MG/DL (7-18); CHLORIDE 82 MEQ/L (98-107); GLOMERULAR FILTRATION RATE 64 ML/MIN (>89); SODIUM (NA) 130 MEQ/L (136-145); TOTAL BILIRUBIN ADULT 11.5 MG/DL (0.2-1.0)
[2017-01-23] MEDS: SODIUM CHLORIDE 0.9% FLUSH 10 ML FLUSH IV FLUSH SCH ×2 (09:00→21:00)
[2017-01-23 09:07] LABS: HEMO FLAGS AUTO DIFF
[2017-01-23 09:29] LABS: POTASSIUM 2.5 MEQ/L (3.5-5.1)
[2017-01-23] MEDS ORDERED: POTASSIUM CHLORIDE 20 MEQ CONTROLLED RELEASE TAB PO ONE (09:45)
[2017-01-23 09:58] LABS: BANDS 1 % (0-6); BASOPHILS 1 % (0-2); NEUTROPHIL # MANUAL DIFF 10.4 TH/MM3 (1.8-7.7); POLYS (SEG NEUTROPHILS) 68 % (16-70); WBC DIFF SAMPLE 100
[2017-01-23 10:00] LABS: PLATELET ESTIMATE SMEAR HIGH (NORMAL); PLATELET MORPHOLOGY ENLARGED (NORMAL); SCAN/DIFF FINAL DIFF MANUAL; TARGET CELLS 2+ (NORMAL)
[2017-01-23] MEDS: POTASSIUM CHLOR 10 MEQ PREMIX 100 ML IV SCH ×3 (10:08→13:00)
--- NOTE | 2017-01-23 10:34 | HHI.PR ---
Subjective Remarks feels very weak, poor po intake no abdominal pain complains or nausea or vomiting Objective Vitals Vital Signs Date Time Temp Pulse Resp B/P (MAP) Pulse Ox O2 Delivery O2 Flow Rate FiO2 01/23/17 04:00 98.4 78 19 106/58 (74) 95 01/23/17 00:00 98.3 90 20 112/60 (77) 99 01/22/17 20:00 97.7 84 19 119/64 (82) 98 01/22/17 19:30 Room Air 01/22/17 16:11 97.5 84 19 118/62 (80) 99 I/O 01/22/17 01/22/17 01/22/17 01/23/17 01/23/17 01/23/17 07:00 15:00 23:00 07:00 15:00 23:00 Intake Total 3461 ml 480 ml 100 ml Output Total 950 ml 525 ml 800 ml 650 ml Balance 2511 ml -525 ml -320 ml -550 ml Intake Oral 120 ml 480 ml 100 ml IV Total 3341 ml Output Urine Total 250 ml 300 ml 100 ml Drainage Total 700 ml 525 ml 500 ml 550 ml # Bowel Movements 0 Result Diagram: 01/23/17 0634 01/23/17 0634 Imaging Last Impressions Renal Ultrasound 01/20/17 0000 Signed Impressions: Service Date/Time: Friday, January 20, 2017 18:19 - CONCLUSION: Right side hydronephrosis, new and etiology uncertain. Ureteral jets are demonstrated and the hydronephrosis is mild compatible with partial/low grade obstruction. Gonzalez Agosto MD Consultation 01/18/17 0806 Signed Impressions: Service Date/Time: Wednesday, January 18, 2017 08:06 - CONCLUSION: Patient has a mass in the right lung, and most likely primary lung carcinoma. This can be biopsied percutaneously . I would wait until the patient's clinical status improved on biliary drainage. This could be biopsied the day prior to discharge as an outpatient. Please reconsult. Thank you for this consultation. Moody Washburn MD FACR Bile Duct Drainage 01/17/17 0000 Signed Impressions: Service Date/Time: Tuesday, January 17, 2017 13:27 - CONCLUSION: Uncomplicated internal/external biliary stent placement as above. The obstruction is at the level of the pancreatic head approaching the ampulla. No discrete stone observed. Kvng Craft Jr., MD Cholangiopancreatography MRI 01/14/17 0000 Signed Impressions: Service Date/Time: Saturday, January 14, 2017 08:31 - CONCLUSION: 1. Significant intrahepatic and extrahepatic biliary ductal dilatation with no visualized mass on this noncontrast study. A small distal tumor or stricture could be present. 2. The pancreatic duct is at the upper limits of normal in size. There is no visualized pancreatic lesion. 3. Large simple cyst again noted in the liver. There is a smaller cyst in the left lobe. 4. Small to moderate-sized hiatal hernia. 5. The gallbladder is at the upper limits of normal in size with no evidence of cholelithiasis. Oren Garduno MD Chest CT 01/14/17 0000 Signed Impressions: Service Date/Time: Sunday, January 15, 2017 08:38 - CONCLUSION: 1. Large spiculated soft tissue mass in the right upper lobe most characteristic of a primary bronchogenic carcinoma. This would be amenable to CT-guided core biopsy. 2. Pneumomediastinum is present. 3. Small pretracheal and periaortic lymph nodes noted but no definite adenopathy on this noncontrast exam. 4. Small pleural effusions left greater than right. 5. Underlying emphysema. Oren Garduno MD Abdomen/Pelvis CT 01/12/17 1716 Signed Impressions: Service Date/Time: January 19:16 - CONCLUSION: Abnormal common duct and distal pancreatic duct. MRCP would be of benefit Prominent gallbladder without obvious stones. Moody Washburn MD FACR Objective Remarks + icteresia, + jaundice lungs- no rales or wheezes regular rhythm abdomen- drain in place, soft, good bowel sounds extremities no edema Procedures 01/17/17 biliary drain placement Urinary Catheter: Yes Assessment to: Continue Quiñonez insert reason: Prolonged Immobilization Date of Insertion: Jan 12, 2017 A/P Problem List: (1) Jaundice ICD Code: R17 - Unspecified jaundice Status: Acute (2) Hyperbilirubinemia ICD Code: E80.6 - Other disorders of bilirubin metabolism Status: Acute (3) Transaminitis ICD Code: R74.0 - Nonspecific elevation of levels of transaminase and lactic acid dehydrogenase [LDH] Status: Acute (4) Leukocytosis ICD Code: D72.829 - Elevated white blood cell count, unspecified Status: Acute (5) Hyponatremia ICD Code: E87.1 - Hypo-osmolality and hyponatremia Status: Acute (6) Mild anemia ICD Code: D64.9 - Anemia, unspecified Status: Acute (7) Lung mass ICD Code: R91.8 - Other nonspecific abnormal finding of lung field Status: Acute (8) Hypotension ICD Code: I95.9 - Hypotension, unspecified Status: Acute (9) Dehydration ICD Code: E86.0 - Dehydration Status: Acute Assessment and Plan 71 years old female Lung mass: Large spiculated soft tissue mass in the right upper lobe most characteristic of a primary bronchogenic carcinoma. Jaundice, painless: LFTs elevated but stabilizing. S/P EGD with EUS. 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 S/P MRCP. Biliary drain placed, draining well. IR reconsulted for CT guided lung biopsy- tumor markers elevated GI and Oncology ff ANCELMO: Likely 2/2 dehydration given large biliary drain output + poor po .Renal functions improved. Continue gentle IVF- poor po. Dietary consult Hyponatremia:stabilizing Hypokalemia- continue-KCL in maintenance IVF replace and ff. DC HC03 drip Leukocytosis: No other signs of infection at this time. Follow labs. Acute Anemia on top of chronic. S/P RBC transfusion 01/22. ONcology ff DVT prophylaxis: SCDs, CHRIS marin. Coagulopathy: INR is decreased following administration of FFP. Hypotension, lightheadedness: Continue IV fluids. DEconditioning- PT consult Dietary consult- poor po. Start Ensure tid - chocolate flavor Discharge Planning Pending lung biopsy. Arun Paredes MD Jan 23, 2017 10:33
--- NOTE | 2017-01-23 10:36 | PD.ONC.PN ---
Subjective Subjective Remarks Afebrile overnight. Jaundice improving. Still eating very little. Asking when the biopsy will be. Objective Data Date Time Temp Pulse Resp B/P (MAP) Pulse Ox O2 Delivery O2 Flow Rate FiO2 01/23/17 04:00 98.4 78 19 106/58 (74) 95 01/23/17 00:00 98.3 90 20 112/60 (77) 99 01/22/17 20:00 97.7 84 19 119/64 (82) 98 01/22/17 19:30 Room Air 01/22/17 16:11 97.5 84 19 118/62 (80) 99 01/23/17 01/23/17 01/23/17 06:59 14:59 22:59 Intake Total 100 ml Output Total 650 ml Balance -550 ml Result Diagram: 01/23/1734 01/23/1734 Laboratory Results Laboratory Tests Test 01/23/17 06:34 White Blood Count 15.1 TH/MM3 Red Blood Count 3.18 MIL/MM3 Hemoglobin 10.3 GM/DL Hematocrit 29.2 % Mean Corpuscular Volume 91.8 FL Mean Corpuscular Hemoglobin 32.2 PG Mean Corpuscular Hemoglobin Concent 35.1 % Red Cell Distribution Width 21.1 % Platelet Count 520 TH/MM3 Mean Platelet Volume 9.2 FL CBC Comment AUTO DIFF Differential Total Cells Counted 100 Neutrophils % (Manual) 68 % Band Neutrophils % 1 % Lymphocytes % 19 % Monocytes % 11 % Basophils % 1 % Neutrophils # (Manual) 10.4 TH/MM3 Differential Comment FINAL DIFF MANUAL Platelet Estimate HIGH Platelet Morphology Comment ENLARGED Target Cells 2+ Blood Urea Nitrogen 23 MG/DL Creatinine 0.87 MG/DL Random Glucose 119 MG/DL Total Protein 6.6 GM/DL Albumin 2.3 GM/DL Calcium Level 8.4 MG/DL Alkaline Phosphatase 564 U/L Aspartate Amino Transf (AST/SGOT) 59 U/L Alanine Aminotransferase (ALT/SGPT) 79 U/L Total Bilirubin 11.5 MG/DL Sodium Level 130 MEQ/L Potassium Level 2.5 MEQ/L Chloride Level 82 MEQ/L Carbon Dioxide Level 37.5 MEQ/L Anion Gap 11 MEQ/L Estimat Glomerular Filtration Rate 64 ML/MIN Magnesium Level 2.6 MG/DL Administered Medications Medications (Trade) Dose Ordered Sig/Jason Route PRN Reason Start Time Stop Time Status Last Admin Dose Admin Sodium Chloride (NS Flush) 2 ml BID IV FLUSH 01/12/17 21:00 01/22/17 20:35 Alprazolam (Xanax) 0.25 mg Q8H PRN PO ANXIETY 01/15/17 13:30 01/22/17 18:43 Diphenhydramine HCl (Benadryl) 25 mg HS PRN PO INSOMNIA 01/17/17 19:00 01/22/17 20:32 Ondansetron HCl (Zofran Inj) 4 mg Q8HR PRN IV PUSH NAUSEA OR VOMITING 01/19/17 12:30 01/20/17 16:20 Oxycodone HCl (Roxicodone) 5 mg Q6H PRN PO PAIN SCALE 4 TO 10 01/20/17 09:30 01/20/17 09:42 Potassium Chloride 100 ml @ 100 mls/hr Q1H IV 01/23/17 10:00 01/23/17 12:59 01/23/17 10:08 Objective Remarks GENERAL: Frail elderly female lying in bed in [facility]. SKIN: Warm and dry. +jaundice HEAD: Normocephalic. EYES: ++ scleral icterus. No injection or drainage. NECK: Supple, trachea midline. CARDIOVASCULAR: +S1/S2 RESPIRATORY: Breath sounds equal bilaterally. No accessory muscle use. GASTROINTESTINAL: Abdomen soft, mildly distended. EXTREMITIES: No cyanosis NEUROLOGICAL: awake and alert, normal speech. able to move extremities. Assessment/Plan Problem List: (1) Lung mass ICD Codes: R91.8 - Other nonspecific abnormal finding of lung field Status: Acute Plan: -- CT on 01/15 shows 3.8x 3.7cm large spiculated mass found in the upper R lung -- History of superficial bladder cancer, followed with Dr Castillo. -- 01/23--bilirubin improving. invasive radiology reconsulted for CT-guided lung biopsy (2) Hyperbilirubinemia ICD Codes: E80.6 - Other disorders of bilirubin metabolism Status: Acute Plan: s/p PTC, bilirubin trending downward -- EUS--> benign duodenal stricture, duodenal mucosal irregularity, dilated pancreatic duct; dilated common bile duct --ERCP --> not completed d/t duodenal stricture. --MRCP 01-14--> significant intrahepatic and extrahepatic biliary ductal dilatation with no visualized mass, small distal tumor or stricture could be present pancreatic duct upper limits normal size, GB upper limits normal size with no evidence cholelithiasis. Assessment 71-year-old female with increasing jaundice admitted with abdominal pain Plan 1. monitor CBC, CMP 2. reconsult invasive radiology for CT-guided lung biopsy Robyn Stack Jan 23, 2017 10:36
[2017-01-23] MEDS: ALPRAZolam 0.25 MG TAB PO PRN (11:51)
[2017-01-23] MEDS: D5-NS + KCL 20 MEQ INJ 1,000 ML IV SCH (11:53)
[2017-01-23] MEDS: SODIUM CHLOR 0.9% 1000 ML INJ 1,000 ML IV SCH (13:00)
--- NOTE | 2017-01-23 16:55 | HHI.NPPN ---
Subjective Renal Failure: Acute Interval History Renal function has normalized. She is hypokalemic today. (Suki Garay) Objective Data Data Vital Signs Date Time Temp Pulse Resp B/P (MAP) Pulse Ox O2 Delivery O2 Flow Rate FiO2 01/23/17 12:00 98.2 82 16 105/57 (73) 99 01/23/17 09:20 Room Air 01/23/17 08:00 98.6 80 15 112/63 (79) 96 01/23/17 07:52 74 01/23/17 04:00 98.4 78 19 106/58 (74) 95 01/23/17 00:00 98.3 90 20 112/60 (77) 99 01/22/17 20:00 97.7 84 19 119/64 (82) 98 01/22/17 19:30 Room Air (Suki Garay) -: 01/23/17 0634 01/23/17 0634 Imaging Last Impressions Renal Ultrasound 01/20/17 0000 Signed Impressions: Service Date/Time: Friday, January 20, 2017 18:19 - CONCLUSION: Right side hydronephrosis, new and etiology uncertain. Ureteral jets are demonstrated and the hydronephrosis is mild compatible with partial/low grade obstruction. Gonzalez Agosto MD Consultation 01/18/17 0806 Signed Impressions: Service Date/Time: Wednesday, January 18, 2017 08:06 - CONCLUSION: Patient has a mass in the right lung, and most likely primary lung carcinoma. This can be biopsied percutaneously . I would wait until the patient's clinical status improved on biliary drainage. This could be biopsied the day prior to discharge as an outpatient. Please reconsult. Thank you for this consultation. Moody Washburn MD FACR Bile Duct Drainage 01/17/17 0000 Signed Impressions: Service Date/Time: Tuesday, January 17, 2017 13:27 - CONCLUSION: Uncomplicated internal/external biliary stent placement as above. The obstruction is at the level of the pancreatic head approaching the ampulla. No discrete stone observed. Kvng Craft Jr., MD Cholangiopancreatography MRI 01/14/17 0000 Signed Impressions: Service Date/Time: Saturday, January 14, 2017 08:31 - CONCLUSION: 1. Significant intrahepatic and extrahepatic biliary ductal dilatation with no visualized mass on this noncontrast study. A small distal tumor or stricture could be present. 2. The pancreatic duct is at the upper limits of normal in size. There is no visualized pancreatic lesion. 3. Large simple cyst again noted in the liver. There is a smaller cyst in the left lobe. 4. Small to moderate-sized hiatal hernia. 5. The gallbladder is at the upper limits of normal in size with no evidence of cholelithiasis. Oren Garduno MD Chest CT 01/14/17 0000 Signed Impressions: Service Date/Time: Sunday, January 15, 2017 08:38 - CONCLUSION: 1. Large spiculated soft tissue mass in the right upper lobe most characteristic of a primary bronchogenic carcinoma. This would be amenable to CT-guided core biopsy. 2. Pneumomediastinum is present. 3. Small pretracheal and periaortic lymph nodes noted but no definite adenopathy on this noncontrast exam. 4. Small pleural effusions left greater than right. 5. Underlying emphysema. Oren Garduno MD Abdomen/Pelvis CT 01/12/17 1716 Signed Impressions: Service Date/Time: January 19:16 - CONCLUSION: Abnormal common duct and distal pancreatic duct. MRCP would be of benefit Prominent gallbladder without obvious stones. Moody Washburn MD FACR Tubes & Lines: Limon (Dipak Garayon B. [employer]ER) Physical Exam General Appearance: Well Developed, No Acute Distress, Comfortable (Jarrod,Suki B. [employer]ER) Throat Throat Exam: Oral Mucosa [place] & Moist (Jarrod,Suki B. [employer]ER) Neck Neck Exam: Neck Supple (Jarrod,Suki B. [employer]OSER) Pulmonary Resp Exam: Clear Bilaterally, Decreased Bases (Jarrod,Suki B. [employer]ER) Cardiology CV Exam: Regular (Jarrod,Suki B. [employer]OSER) Gastrointestinal/Abdomen GI Exam: Soft, Non-Tender, Bowel Sounds Present, Positive Bowel Movement (Jarrod,Suki B. [employer]ER) Musculoskeletal MS Exam: Joints Intact, Normal Tone (Jarrod,Suki B. [employer]OSER) Integumentary Skin Exam: Clear, Warm, Dry, Intact (Jarrod,Suki B. [employer]OSER) Extremeties Extremities Exam: No Edema, Pedal Pulses Palpable (Suki Garay) Neurologic Neuro Exam: Alert, Awake, Oriented, Speech Clear, Moving All Extremities (Suki Garay) Psychiatric Psych Exam: Appropriate Responses (Suki Garay) Assessment/Plan Discussed Condition With: Patient Assessment Summary: ANCELMO/Acute Renal Failure Problem List: (1) Renal failure ICD Codes: N19 - Unspecified kidney failure Status: Acute Plan: she has no prior history, renal function was normal on arrival ANCELMO due to contrast administration, also due to high output biliary drain. Creatinine and acidosis have improved hypokalemic today, ordered IV and PO replacement Right-sided hydronephrosis per renal ultrasound - limon was placed. Unclear hydronephrosis etiology, consider urology evaluation avoid nephrotoxins, renally dose medications when appropriate repeat renal panel in AM (2) Lung cancer ICD Codes: C34.90 - Malignant neoplasm of unspecified part of unspecified bronchus or lung Status: Acute Plan: on imaging, mass identified in right upper lobe plan for CT guided biopsy oncology following, appreciate recommendations (3) Hyperbilirubinemia ICD Codes: E80.6 - Other disorders of bilirubin metabolism Status: Acute Plan: with transaminitis GI and hematology/oncology following s/p biliary drain MRCP on 01/17, distal tumor vs stricture appreciate further recommendations Plan we will sign off at this time. (Suki Garay) Plan patient was seen and examined. Agree with above assessment and plan. (Abdifatah Child MD) Problem Qualifiers (1) Renal failure: Suki Garay Jan 23, 2017 16:55 Abdifatah Child MD Jan 24, 2017 11:26
[2017-01-23] MEDS: diphenhydrAMINE HCL 25 MG CAP PO PRN (21:10)
[2017-01-24] VITALS (13 sets, daily range): BP systolic 100–173; BP diastolic 51–75; PULSE 93–105; RESP 16–18; TEMP 97–97.6; O2SAT 92–98
[2017-01-24] MEDS: D5-NS + KCL 20 MEQ INJ 1,000 ML IV SCH ×2 (03:00→18:20)
[2017-01-24] MEDS: SODIUM CHLORIDE 0.9% FLUSH 10 ML FLUSH IV FLUSH SCH ×2 (09:45→20:32)
[2017-01-24 11:30] LABS: ALKALINE PHOSPHATASE 615 U/L (45-117); ALT (GPT) 84 U/L (10-53); ANION GAP 14 MEQ/L (5-15); AST (GOT) 59 U/L (15-37); BLOOD UREA NITROGEN 34 MG/DL (7-18); CHLORIDE 86 MEQ/L (98-107); GLOMERULAR FILTRATION RATE 21 ML/MIN (>89); MAGNESIUM 3.3 MG/DL (1.5-2.5); POTASSIUM 3.8 MEQ/L (3.5-5.1); SODIUM (NA) 129 MEQ/L (136-145); TOTAL BILIRUBIN ADULT 12.5 MG/DL (0.2-1.0)
[2017-01-24] MEDS: SODIUM CHLOR 0.9% 1000 ML INJ 1,000 ML IV SCH ×2 (12:49→20:32)
[2017-01-24] MEDS ORDERED: LIDOCAINE HCL 1% 20 ML VIAL ONE (15:12)
[2017-01-24] MEDS ORDERED: MIDAZOLAM HCL 2 MG/2 ML VIAL ONE (15:13)
[2017-01-24] MEDS ORDERED: fentaNYL CITRATE 250 MCG/5 ML AMP ONE (15:13)
--- NOTE | 2017-01-24 15:45 | PD.ONC.PN ---
Subjective Subjective Remarks Afebrile overnight Patient resting on stretcher awaiting to go downstairs for lung biopsy Reports feeling tired. Objective Data Date Time Temp Pulse Resp B/P (MAP) Pulse Ox O2 Delivery O2 Flow Rate FiO2 01/24/17 12:00 97.0 105 18 106/69 (81) 94 01/24/17 12:00 Room Air 01/24/17 09:00 Room Air 01/24/17 08:00 97.3 99 18 101/58 (72) 93 01/24/17 07:52 93 01/24/17 04:00 97.4 102 18 108/56 (73) 96 01/24/17 04:00 Room Air 01/24/17 00:00 97.6 102 18 100/51 (67) 97 01/23/17 23:36 Room Air 01/23/17 20:00 Room Air 01/23/17 20:00 97.5 101 18 106/65 (79) 97 01/23/17 19:56 96 01/23/17 16:00 98.0 101 16 117/68 (84) 96 01/23/17 16:00 Room Air 01/24/17 01/24/17 01/24/17 06:59 14:59 22:59 Intake Total 1040 ml Output Total 1500 ml Balance -460 ml Result Diagram: 01/23/17 0634 01/24/17 1030 Laboratory Results Laboratory Tests Test 01/24/17 10:30 Blood Urea Nitrogen 34 MG/DL Creatinine 2.26 MG/DL Random Glucose 167 MG/DL Total Protein 8.5 GM/DL Albumin 2.9 GM/DL Calcium Level 9.8 MG/DL Magnesium Level 3.3 MG/DL Alkaline Phosphatase 615 U/L Aspartate Amino Transf (AST/SGOT) 59 U/L Alanine Aminotransferase (ALT/SGPT) 84 U/L Total Bilirubin 12.5 MG/DL Sodium Level 129 MEQ/L Potassium Level 3.8 MEQ/L Chloride Level 86 MEQ/L Carbon Dioxide Level 29.0 MEQ/L Anion Gap 14 MEQ/L Estimat Glomerular Filtration Rate 21 ML/MIN Administered Medications Medications (Trade) Dose Ordered Sig/Jason Route PRN Reason Start Time Stop Time Status Last Admin Dose Admin Sodium Chloride (NS Flush) 2 ml BID IV FLUSH 01/12/17 21:00 01/24/17 09:45 Alprazolam (Xanax) 0.25 mg Q8H PRN PO ANXIETY 01/15/17 13:30 01/23/17 11:51 Diphenhydramine HCl (Benadryl) 25 mg HS PRN PO INSOMNIA 01/17/17 19:00 01/23/17 21:10 Ondansetron HCl (Zofran Inj) 4 mg Q8HR PRN IV PUSH NAUSEA OR VOMITING 01/19/17 12:30 01/20/17 16:20 Oxycodone HCl (Roxicodone) 5 mg Q6H PRN PO PAIN SCALE 4 TO 10 01/20/17 09:30 01/20/17 09:42 Potassium Chloride/Dextrose/ Sod Cl 1,000 ml @ 70 mls/hr [id number] IV 01/23/17 11:00 01/24/17 03:00 Sodium Chloride 1,000 ml @ 42 mls/hr [id number] IV 01/23/17 13:00 01/23/17 13:00 Objective Remarks GENERAL: Frail elderly female lying in stretcher in [facility]. SKIN: Warm and dry. +jaundice HEAD: Normocephalic. EYES: ++ scleral icterus. No injection or drainage. NECK: Supple, trachea midline. CARDIOVASCULAR: +S1/S2 RESPIRATORY: Breath sounds equal bilaterally. No accessory muscle use. GASTROINTESTINAL: Abdomen soft, mildly distended. EXTREMITIES: No cyanosis. No edema. NEUROLOGICAL: Moving all extremities. No obvious focal deficit. Assessment/Plan Problem List: (1) Lung mass ICD Codes: R91.8 - Other nonspecific abnormal finding of lung field Status: Acute Plan: -- CT on 01/15 shows 3.8x 3.7cm large spiculated mass found in the upper R lung -- History of superficial bladder cancer, followed with Dr Castillo. -- 01/24 lung biopsy by invasive radiology (2) Hyperbilirubinemia ICD Codes: E80.6 - Other disorders of bilirubin metabolism Status: Acute Plan: s/p PTC, bilirubin trending downward -- EUS--> benign duodenal stricture, duodenal mucosal irregularity, dilated pancreatic duct; dilated common bile duct --ERCP --> not completed d/t duodenal stricture. --MRCP 01-14--> significant intrahepatic and extrahepatic biliary ductal dilatation with no visualized mass, small distal tumor or stricture could be present pancreatic duct upper limits normal size, GB upper limits normal size with no evidence cholelithiasis. Assessment 71-year-old female with increasing jaundice admitted with abdominal pain Plan 1. CT-guided lung biopsy today 2. Monitor labs for bilirubin and electrolytes. 3. Continue physical therapy as patient is quite debilitated 4. The patient will likely need PET scan once outpatient Attending Statement Events noted, follow up biopsy results. Agree with above. As discussed. Bette Portillo Jan 24, 2017 15:45 Esme Holt MD Jan 24, 2017 18:05
--- NOTE | 2017-01-24 16:05 | PD.RAD ---
Post CT Procedure Prog Note Pre Procedure Diagnosis: (1) Lung mass Post Procedure Diagnosis: (1) Lung mass Procedure Date: Jan 24, 2017 Supervising Radiologist: Dennis Umana Estimated blood loss: <5 ml Anesthesia: Conscious Sedation Plan of Activity Patient to Unit: Nursing Unit Patient Condition: Good Additional Comments: 3 x 20g core biopsies of rul central lung mass See PACS Report for procedural detail/treatment Dennis Umana MD Jan 24, 2017 16:05
--- NOTE | 2017-01-24 17:13 | RADRPT ---
EXAM DATE/TIME: 01/24/2017 15:37 [facility] COMPARISON: No previous studies available for comparison. INDICATIONS : Right lung mass. SEDATION TIME: 30 minutes BIOPSY SITE: Right upper lobe lung mass MEDICATION(S): 1.) 1 mg midazolam (Versed) IV 2.) 100 mcg fentanyl (Sublimaze) IV DEVICE(S): 1.) 18 gauge Al blunt needle 2.) 20 gauge Temno core biopsy needle MEDICAL HISTORY : Hypertension. Carcinoma, bladder. Jaundice. SURGICAL HISTORY : Bladder tumor removal. ENCOUNTER: Initial ACUITY: 1 day PAIN SCORE: 0/10 LOCATION: Right chest A total of four core specimen(s) were obtained and sent to the laboratory for pathologic evaluation. PROCEDURE: 1. CT guided lung biopsy. 2. Conscious sedation with continuous EKG and oximetry monitoring. 3. EKG and oximetry remained stable throughout the procedure. Prior to the procedure informed consent was obtained. Any appropriate prior imaging studies were rev iewed. Using automated exposure control and adjustment of the mA and/or kV according to patient size, radiation dose was kept as low as reasonably achievable to obtain optimal diagnostic quality images. DICOM format image data is available electronically for review and comparison. The site was prepped in a sterile fashion. Full sterile technique was used, including cap, mask, abe rile gloves and gown and a large sterile sheet. Hand hygiene and 2% chlorhexidine and/or betadine/al cohol prep was utilized per protocol for cutaneous antisepsis. The skin and subcutaneous tissues wer e infiltrated with local anesthetic solution. With CT guidance the previously identified target was localized. Biopsy was performed using the presc ribed needle as above. Three 20 gauge core biopsies were obtained. Adequate hemostasis was obtained with compression at the puncture site. Follow-up CT scan reveals no pneumothorax. Conscious sedation was performed with the prescribed dosages and duration as above in the presence of an independent trained radiology nurse to assist in the monitoring of the patient. EKG and oximetry remained stable throughout the procedure. The patient tolerated the procedure well and there were no complications. The patient was sent to Radiology Outpatient Unit in stable condition. CONCLUSION: Uncomplicated CT guided biopsy. Dennis Umana MD on January 24, 2017 at 17:11 Board Certified Radiologist. This report was verified electronically.
--- NOTE | 2017-01-24 18:16 | RADRPT ---
EXAM DATE/TIME: 01/24/2017 17:52 [facility] COMPARISON: CT NEEDLE BIOPSY LUNG, RIGHT, January 24, 2017, 15:37. INDICATIONS : Evaluate for pneumothorax. Post lung biopsy. MEDICAL HISTORY : Hypertension. Carcinoma, bladder. Jaundice. SURGICAL HISTORY : Bladder tumor removal. ENCOUNTER: Subsequent ACUITY: 1 day PAIN SCORE: 0/10 LOCATION: Bilateral chest FINDINGS: Expiratory upright AP view of the chest demonstrates no pneumothorax following right upper lobe mass biopsy. Right upper lobe mass remains visualized. There is no pleural effusion. CONCLUSION: There is no pneumothorax following right upper lobe lung mass biopsy. Gonzalez Avery MD on January 24, 2017 at 18:13 Board Certified Radiologist. This report was verified electronically.
--- NOTE | 2017-01-24 18:40 | HHI.PR ---
Subjective Remarks had lung biopsy done today tolerated procedure well Objective Vitals Vital Signs Date Time Temp Pulse Resp B/P (MAP) Pulse Ox O2 Delivery O2 Flow Rate FiO2 01/24/17 18:15 97.6 96 18 106/67 (80) 92 01/24/17 17:36 101 16 126/66 (86) 98 01/24/17 17:15 103 16 107/71 (83) 98 01/24/17 16:45 98 16 113/66 (82) 98 01/24/17 16:30 98 18 107/75 (86) 98 01/24/17 16:15 97.5 101 18 101/72 (82) 98 01/24/17 12:00 97.0 105 18 106/69 (81) 94 01/24/17 12:00 Room Air 01/24/17 09:00 Room Air 01/24/17 08:00 97.3 99 18 101/58 (72) 93 01/24/17 07:52 93 01/24/17 04:00 97.4 102 18 108/56 (73) 96 01/24/17 04:00 Room Air 01/24/17 00:00 97.6 102 18 100/51 (67) 97 01/23/17 23:36 Room Air 01/23/17 20:00 Room Air 01/23/17 20:00 97.5 101 18 106/65 (79) 97 01/23/17 19:56 96 I/O 01/23/17 01/23/17 01/23/17 01/24/17 01/24/17 01/24/17 07:00 15:00 23:00 07:00 15:00 23:00 Intake Total 100 ml 1365 ml 1040 ml 552 ml Output Total 650 ml 1875 ml 1500 ml 1000 ml Balance -550 ml -510 ml -460 ml -448 ml Intake Oral 100 ml 480 ml 100 ml IV Total 885 ml 940 ml 552 ml Output Urine Total 100 ml 300 ml 100 ml 150 ml Drainage Total 550 ml 1575 ml 1400 ml 850 ml # Bowel Movements 0 Result Diagram: 01/23/17 0634 01/24/17 1030 Imaging Last Impressions Renal Ultrasound 01/20/17 0000 Signed Impressions: Service Date/Time: Friday, January 20, 2017 18:19 - CONCLUSION: Right side hydronephrosis, new and etiology uncertain. Ureteral jets are demonstrated and the hydronephrosis is mild compatible with partial/low grade obstruction. Gonzalez Agosto MD Consultation 01/18/17 0806 Signed Impressions: Service Date/Time: Wednesday, January 18, 2017 08:06 - CONCLUSION: Patient has a mass in the right lung, and most likely primary lung carcinoma. This can be biopsied percutaneously . I would wait until the patient's clinical status improved on biliary drainage. This could be biopsied the day prior to discharge as an outpatient. Please reconsult. Thank you for this consultation. Moody Washburn MD FACR Bile Duct Drainage 01/17/17 0000 Signed Impressions: Service Date/Time: Tuesday, January 17, 2017 13:27 - CONCLUSION: Uncomplicated internal/external biliary stent placement as above. The obstruction is at the level of the pancreatic head approaching the ampulla. No discrete stone observed. Kvng Craft Jr., MD Cholangiopancreatography MRI 01/14/17 0000 Signed Impressions: Service Date/Time: Saturday, January 14, 2017 08:31 - CONCLUSION: 1. Significant intrahepatic and extrahepatic biliary ductal dilatation with no visualized mass on this noncontrast study. A small distal tumor or stricture could be present. 2. The pancreatic duct is at the upper limits of normal in size. There is no visualized pancreatic lesion. 3. Large simple cyst again noted in the liver. There is a smaller cyst in the left lobe. 4. Small to moderate-sized hiatal hernia. 5. The gallbladder is at the upper limits of normal in size with no evidence of cholelithiasis. Oren Garduno MD Chest CT 01/14/17 0000 Signed Impressions: Service Date/Time: Sunday, January 15, 2017 08:38 - CONCLUSION: 1. Large spiculated soft tissue mass in the right upper lobe most characteristic of a primary bronchogenic carcinoma. This would be amenable to CT-guided core biopsy. 2. Pneumomediastinum is present. 3. Small pretracheal and periaortic lymph nodes noted but no definite adenopathy on this noncontrast exam. 4. Small pleural effusions left greater than right. 5. Underlying emphysema. Oren Garduno MD Abdomen/Pelvis CT 01/12/17 1716 Signed Impressions: Service Date/Time: January 19:16 - CONCLUSION: Abnormal common duct and distal pancreatic duct. MRCP would be of benefit Prominent gallbladder without obvious stones. Moody Washburn MD FACR Objective Remarks + icteresia, + jaundice lungs- no rales or wheezes regular rhythm abdomen- drain in place, soft, good bowel sounds extremities no edema Procedures 01/17/17 biliary drain placement 01/24- lung biopsy Date of Insertion: Jan 12, 2017 A/P Problem List: (1) Jaundice ICD Code: R17 - Unspecified jaundice Status: Acute (2) Hyperbilirubinemia ICD Code: E80.6 - Other disorders of bilirubin metabolism Status: Acute (3) Transaminitis ICD Code: R74.0 - Nonspecific elevation of levels of transaminase and lactic acid dehydrogenase [LDH] Status: Acute (4) Leukocytosis ICD Code: D72.829 - Elevated white blood cell count, unspecified Status: Acute (5) Hyponatremia ICD Code: E87.1 - Hypo-osmolality and hyponatremia Status: Acute (6) Mild anemia ICD Code: D64.9 - Anemia, unspecified Status: Acute (7) Lung mass ICD Code: R91.8 - Other nonspecific abnormal finding of lung field Status: Acute (8) Hypotension ICD Code: I95.9 - Hypotension, unspecified Status: Acute (9) Dehydration ICD Code: E86.0 - Dehydration Status: Acute Assessment and Plan 71 years old female Lung mass: Large spiculated soft tissue mass in the right upper lobe most characteristic of a primary bronchogenic carcinoma. Jaundice, painless: LFTs elevated but stabilizing. S/P EGD with EUS. 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 S/P MRCP. Biliary drain placed, draining well. S/P Lung biopsy- ff pathology tumor markers elevated GI and Oncology ff ANCELMO: - creatinine up again- increase IVF rate to 100 cc/hr Hyponatremia:stabilizing Hypokalemia- continue-KCL in maintenance IVF replace and ff. DC HC03 drip Leukocytosis: No other signs of infection at this time. Follow labs. Acute Anemia on top of chronic. S/P RBC transfusion 01/22. ONcology ff DVT prophylaxis: SCDs, CHRIS hose. Coagulopathy: INR is decreased following administration of FFP. DEconditioning- PT consult Dietary consult- poor po. Start Ensure tid - chocolate flavor Discharge Planning Pending clinical improvement- creatinine increased again Arun Paredes MD Jan 24, 2017 18:40
[2017-01-24] MEDS: diphenhydrAMINE HCL 25 MG CAP PO PRN (20:32)
[2017-01-25] VITALS: BP 110/63; PULSE 94; RESP 18; TEMP 97.4; O2SAT 98
[2017-01-25 04:00] VITALS: BP 105/56; PULSE 87; RESP 18; TEMP 97.4; O2SAT 96
[2017-01-25 06:53] LABS: BICARBONATE 21.9 MEQ/L (21.0-32.0); POTASSIUM 3.9 MEQ/L (3.5-5.1)
[2017-01-25 08:00] VITALS: BP 115/64; PULSE 88; RESP 17; TEMP 97.8; O2SAT 98
[2017-01-25] MEDS: SODIUM CHLORIDE 0.9% FLUSH 10 ML FLUSH IV FLUSH SCH ×2 (09:00→21:18)
--- NOTE | 2017-01-25 09:04 | RADRPT ---
EXAM DATE/TIME: 01/25/2017 08:45 [facility] COMPARISON: US KIDNEY/RENAL/BLADDER, January 20, 2017, 18:19. INDICATIONS : New right-sided hydronephrosis on ultrasound. ORAL CONTRAST: No oral contrast ingested. RADIATION DOSE: 4.51 CTDIvol (mGy) MEDICAL HISTORY : Carcinoma, bladder. Hypertension. Gastroesophageal reflux disease.Jaundice, Hematuria. SURGICAL HISTORY : Bladder tumor resection. ENCOUNTER: Initial ACUITY: 3 days PAIN SCALE: 3/10 LOCATION: Bilateral flank TECHNIQUE: Volumetric scanning of the abdomen and pelvis was performed. Using automated exposure control and ad justment of the mA and/or kV according to patient size, radiation dose was kept as low as reasonably achievable to obtain optimal diagnostic quality images. DICOM format image data is available electro nically for review and comparison. FINDINGS: There is a percutaneous transhepatic biliary drainage catheter identified with distal coil in the duo denum. There is a hypodense mass posterior to the gallbladder measuring 5.2 x 1.1 cm in transverse di mension. The gallbladder contains internal high density which may represent vicarious excretion of co ntrast versus high density sludge. Spleen, pancreas, adrenals, bilateral kidneys are unremarkable. At herosclerotic calcification of the aorta and iliac vessels. Urinary bladder contains a Quiñonez catheter . Uterus contains a calcified fibroid at the fundus measuring 1.6 cm. There is diverticulosis of the sigmoid and descending colon without diverticulitis. There are no signs of bowel obstruction. There i s no adenopathy. Coronal images demonstrate an additional hypodense mass inferior to the dominant 5.2 cm mass measuring 2.5 cm in image 29. There is no intrahepatic or extrahepatic biliary ductal dilata tion. There is no evidence of hydronephrosis. Lung bases are clear. Osseous structures are intact. CONCLUSION: No evidence of hydronephrosis. Please see above. Miguel Ángel Encinas MD on January 25, 2017 at 8:59 Board Certified Radiologist. This report was verified electronically.
[2017-01-25 09:54] LABS: INDIRECT BILIRUBIN 2.1 MG/DL (0.0-0.8); TOTAL BILIRUBIN ADULT 10.6 MG/DL (0.2-1.0)
[2017-01-25 12:00] VITALS: BP 116/66; PULSE 93; RESP 18; TEMP 97.3; O2SAT 97
--- NOTE | 2017-01-25 12:03 | HHI.PR ---
Subjective Remarks patient seen with daughter at bedside she is not complaining of any pain or vomiting, poor po appetite feels tired and states "what's the point" she has decided to go into hospice- discuss with her that pathology is still pending biliary drain- high out[ut Objective Vitals Vital Signs Date Time Temp Pulse Resp B/P (MAP) Pulse Ox O2 Delivery O2 Flow Rate FiO2 01/25/17 08:00 97.8 88 17 115/64 (81) 98 01/25/17 04:23 Room Air 01/25/17 04:00 97.4 87 18 105/56 (72) 96 01/25/17 00:00 Room Air 01/25/17 00:00 97.4 94 18 110/63 (79) 98 01/24/17 20:22 94 01/24/17 20:00 97.1 94 18 173/67 (102) 97 01/24/17 20:00 Room Air 01/24/17 18:15 97.6 96 18 106/67 (80) 92 01/24/17 17:36 101 16 126/66 (86) 98 01/24/17 17:15 103 16 107/71 (83) 98 01/24/17 16:45 98 16 113/66 (82) 98 01/24/17 16:30 98 18 107/75 (86) 98 01/24/17 16:15 97.5 101 18 101/72 (82) 98 01/24/17 12:00 97.0 105 18 106/69 (81) 94 01/24/17 12:00 Room Air I/O 01/24/17 01/24/17 01/24/17 01/25/17 01/25/17 01/25/17 06:59 14:59 22:59 06:59 14:59 22:59 Intake Total 1040 ml 700 ml 1000 ml 120 ml Output Total 1500 ml 1000 ml 1350 ml Balance -460 ml -300 ml -350 ml 120 ml Intake Oral 100 ml 120 ml IV Total 940 ml 700 ml 1000 ml Output Urine Total 100 ml 150 ml 100 ml Drainage Total 1400 ml 850 ml 1250 ml # Bowel Movements 0 Result Diagram: 01/23/17 0634 01/25/17 0521 Imaging Last Impressions Abdomen/Pelvis CT 01/25/17 0000 Signed Impressions: Service Date/Time: Wednesday, January 25, 2017 08:45 - CONCLUSION: No evidence of hydronephrosis. Please see above. Miguel Ángel Encinas MD Chest X-Ray 01/24/17 1750 Signed Impressions: Service Date/Time: Tuesday, January 24, 2017 17:52 - CONCLUSION: There is no pneumothorax following right upper lobe lung mass biopsy. Gonzalez Avery MD Lung Biopsy CT 01/24/17 0000 Signed Impressions: Service Date/Time: Tuesday, January 24, 2017 15:37 - CONCLUSION: Uncomplicated CT guided biopsy. Dennis Umana MD Renal Ultrasound 01/20/17 0000 Signed Impressions: Service Date/Time: Friday, January 20, 2017 18:19 - CONCLUSION: Right side hydronephrosis, new and etiology uncertain. Ureteral jets are demonstrated and the hydronephrosis is mild compatible with partial/low grade obstruction. Gonzalez Agosto MD Consultation 01/18/17 0806 Signed Impressions: Service Date/Time: Wednesday, January 18, 2017 08:06 - CONCLUSION: Patient has a mass in the right lung, and most likely primary lung carcinoma. This can be biopsied percutaneously . I would wait until the patient's clinical status improved on biliary drainage. This could be biopsied the day prior to discharge as an outpatient. Please reconsult. Thank you for this consultation. Moody Washburn MD FACR Bile Duct Drainage 01/17/17 0000 Signed Impressions: Service Date/Time: Tuesday, January 17, 2017 13:27 - CONCLUSION: Uncomplicated internal/external biliary stent placement as above. The obstruction is at the level of the pancreatic head approaching the ampulla. No discrete stone observed. Kvng Craft Jr., MD Cholangiopancreatography MRI 01/14/17 0000 Signed Impressions: Service Date/Time: Saturday, January 14, 2017 08:31 - CONCLUSION: 1. Significant intrahepatic and extrahepatic biliary ductal dilatation with no visualized mass on this noncontrast study. A small distal tumor or stricture could be present. 2. The pancreatic duct is at the upper limits of normal in size. There is no visualized pancreatic lesion. 3. Large simple cyst again noted in the liver. There is a smaller cyst in the left lobe. 4. Small to moderate-sized hiatal hernia. 5. The gallbladder is at the upper limits of normal in size with no evidence of cholelithiasis. Oren Gadruno MD Chest CT 01/14/17 0000 Signed Impressions: Service Date/Time: Sunday, January 15, 2017 08:38 - CONCLUSION: 1. Large spiculated soft tissue mass in the right upper lobe most characteristic of a primary bronchogenic carcinoma. This would be amenable to CT-guided core biopsy. 2. Pneumomediastinum is present. 3. Small pretracheal and periaortic lymph nodes noted but no definite adenopathy on this noncontrast exam. 4. Small pleural effusions left greater than right. 5. Underlying emphysema. Oren Garduno MD Objective Remarks + icteresia, + jaundice, roeinted x 3 lungs- no rales or wheezes regular rhythm abdomen- drain with bag in place- draining, soft, good bowel sounds extremities no edema Procedures 01/17/17 biliary drain placement 01/24- lung biopsy Date of Insertion: Jan 12, 2017 A/P Problem List: (1) Jaundice ICD Code: R17 - Unspecified jaundice Status: Acute (2) Hyperbilirubinemia ICD Code: E80.6 - Other disorders of bilirubin metabolism Status: Acute (3) Transaminitis ICD Code: R74.0 - Nonspecific elevation of levels of transaminase and lactic acid dehydrogenase [LDH] Status: Acute (4) Leukocytosis ICD Code: D72.829 - Elevated white blood cell count, unspecified Status: Acute (5) Hyponatremia ICD Code: E87.1 - Hypo-osmolality and hyponatremia Status: Acute (6) Mild anemia ICD Code: D64.9 - Anemia, unspecified Status: Acute (7) Lung mass ICD Code: R91.8 - Other nonspecific abnormal finding of lung field Status: Acute (8) Hypotension ICD Code: I95.9 - Hypotension, unspecified Status: Acute (9) Dehydration ICD Code: E86.0 - Dehydration Status: Acute Assessment and Plan 71 years old female Lung mass: Large spiculated soft tissue mass in the right upper lobe most characteristic of a primary bronchogenic carcinoma.- S/p lunhg biopsy- patho still pending at this time Jaundice, painless: LFTs elevated but stabilizing. S/P EGD with EUS. 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 S/P MRCP. Biliary drain placed, draining well. tumor markers elevated GI and Oncology ff ANCELMO: - creatinine up again- high output from biliary tube increase IVF to 125 cc/hr to match drainage from biliary drain Hyponatremia:stabilizing Hypokalemia- continue-KCL in maintenance IVF replace and ff. DC HC03 drip Leukocytosis: No other signs of infection at this time. Follow labs. Acute Anemia on top of chronic. S/P RBC transfusion 01/22. ONcology ff DVT prophylaxis: SCDs, CHRIS marin. Coagulopathy: INR is decreased following administration of FFP. DEconditioning- PT ff Dietary consult- poor po. Start Ensure tid - chocolate flavor Discussed with patient and daughter and palliative staff- patient wants hospice aware that patho is still pending arrange for home with hospice with DMEs- hospice will let me know is everything is arranged for DC order- HOVF will be ff her on DC code status- DNR Arun Paredes MD Jan 25, 2017 12:03
--- NOTE | 2017-01-25 12:16 | HHI.HCPN ---
Reason for visit a. To assist with evaluation and management of symptoms including: decreased appetite, dizziness, and generalized weakness. b. To assist medical decision maker(s) with: better understanding of current medical conditions; weighing benefits/burdens of medical treatment options; making medical treatment decisions. . (Melania Cornelius) Subjective/Interval History Patient seen today resting in bed, she reports ongoing fatigue and not feeling any better. Patient denies any pain and nausea/vomiting. Patient went for a CT guided lung biopsy on 01/24, tolerated well pathology is pending. CT abdomen 01/25 : No evidence of hydronephrosis. CBC stable, persistent elevation in renal function BUN:42, creatinine: 2.05, bilirubin continues to trend downwards 10.6 today. . Family/friend interactions Bedside meeting with patient and patient's daughter Bailey Joel. . (Melania Cornelius) Advance Directives Health Care Surrogate: Copy in medical record (Melania Cornelius) Advance Directive Specifics Date completed: 01/20/17. . Health Care Surrogate(s): Jasmyne Rubio (daughter): Bailey Joel (alternate HCS, daughter): , . . (Melania Cornelius) Objective Vital Signs Date Time Temp Pulse Resp B/P (MAP) Pulse Ox O2 Delivery O2 Flow Rate FiO2 01/25/17 08:00 97.8 88 17 115/64 (81) 98 01/25/17 04:23 Room Air 01/25/17 04:00 97.4 87 18 105/56 (72) 96 01/25/17 00:00 Room Air 01/25/17 00:00 97.4 94 18 110/63 (79) 98 01/24/17 20:22 94 01/24/17 20:00 97.1 94 18 173/67 (102) 97 01/24/17 20:00 Room Air 01/24/17 18:15 97.6 96 18 106/67 (80) 92 01/24/17 17:36 101 16 126/66 (86) 98 01/24/17 17:15 103 16 107/71 (83) 98 01/24/17 16:45 98 16 113/66 (82) 98 01/24/17 16:30 98 18 107/75 (86) 98 01/24/17 16:15 97.5 101 18 101/72 (82) 98 01/24/17 12:00 97.0 105 18 106/69 (81) 94 01/24/17 12:00 Room Air Intake & Output 01/25/17 01/25/17 07:00 19:00 Intake Total 1148 ml 120 ml Output Total 1350 ml Balance -202 ml 120 ml Intake Oral 120 ml IV Total 1148 ml Output Urine Total 100 ml Drainage Total 1250 ml . Physical Exam CONSTITUTIONAL/GENERAL: This is an elderly, frail, thin female patient, in no apparent distress. TUBES/LINES/DRAINS: RUE midline PIV, LUE PIV x 1, biliary drain draining clear, dark yellow fluid SKIN: Jaundice. Ecchymoses on upper extremities. No wounds seen anteriorly. Skin temperature appropriate. Not diaphoretic. HEAD: Atraumatic. Normocephalic. EYES: Pupils equal and round and reactive. Extraocular motions intact. Scleral icterus present. No injection or drainage. Fundi not examined. ENT: Hearing grossly normal. Nose without bleeding or purulent drainage. NECK: Trachea midline. Supple, nontender. CARDIOVASCULAR: Regular rate and rhythm without murmurs, gallops, or rubs. No JVD. Peripheral pulses symmetric. RESPIRATORY/CHEST: Symmetric, unlabored respirations. Clear, diminished to auscultation. Breath sounds equal bilaterally. No wheezes, rales, or rhonchi. GASTROINTESTINAL: Abdomen soft, flat, non-tender, nondistended. Bowel sounds present. GENITOURINARY: Without palpable bladder distension. MUSCULOSKELETAL: Extremities without clubbing, cyanosis, or edema. No mottling or clubbing. NEUROLOGICAL: Awake, visibly easily fatigued. Motor and sensory grossly within normal limits. Follows commands. Intermittent forgetfulness. Moves all extremities. PSYCHIATRIC: No obvious anxiety/depression. no apparent hallucinations or other psychotic thought process. . (Ashli,Melania ROSS) Diagnostic Tests Laboratory Laboratory Tests Test 01/23/17 06:34 01/24/17 10:30 01/25/17 05:21 White Blood Count 15.1 TH/MM3 (4.0-11.0) Red Blood Count 3.18 MIL/MM3 (4.00-5.30) Hemoglobin 10.3 GM/DL (11.6-15.3) Hematocrit 29.2 % (35.0-46.0) Mean Corpuscular Volume 91.8 FL (80.0-100.0) Mean Corpuscular Hemoglobin 32.2 PG (27.0-34.0) Mean Corpuscular Hemoglobin Concent 35.1 % (32.0-36.0) Red Cell Distribution Width 21.1 % (11.6-17.2) Platelet Count 520 TH/MM3 (150-450) Mean Platelet Volume 9.2 FL (7.0-11.0) CBC Comment AUTO DIFF Differential Total Cells Counted 100 Neutrophils % (Manual) 68 % (16-70) Band Neutrophils % 1 % (0-6) Lymphocytes % 19 % (9-44) Monocytes % 11 % (0-8) Basophils % 1 % (0-2) Neutrophils # (Manual) 10.4 TH/MM3 (1.8-7.7) Differential Comment FINAL DIFF MANUAL Platelet Estimate HIGH (NORMAL) Platelet Morphology Comment ENLARGED (NORMAL) Target Cells 2+ (NORMAL) Blood Urea Nitrogen 23 MG/DL (7-18) 34 MG/DL (7-18) 42 MG/DL (7-18) Creatinine 0.87 MG/DL (0.50-1.00) 2.26 MG/DL (0.50-1.00) 2.05 MG/DL (0.50-1.00) Random Glucose 119 MG/DL (74-106) 167 MG/DL (74-106) 96 MG/DL (74-106) Total Protein 6.6 GM/DL (6.4-8.2) 8.5 GM/DL (6.4-8.2) 7.0 GM/DL (6.4-8.2) Albumin 2.3 GM/DL (3.4-5.0) 2.9 GM/DL (3.4-5.0) 2.4 GM/DL (3.4-5.0) Calcium Level 8.4 MG/DL (8.5-10.1) 9.8 MG/DL (8.5-10.1) 9.0 MG/DL (8.5-10.1) Alkaline Phosphatase 564 U/L (45-117) 615 U/L (45-117) 473 U/L (45-117) Aspartate Amino Transf (AST/SGOT) 59 U/L (15-37) 59 U/L (15-37) 45 U/L (15-37) Alanine Aminotransferase (ALT/SGPT) 79 U/L (10-53) 84 U/L (10-53) 63 U/L (10-53) Total Bilirubin 11.5 MG/DL (0.2-1.0) 12.5 MG/DL (0.2-1.0) 10.6 MG/DL (0.2-1.0) Sodium Level 130 MEQ/L (136-145) 129 MEQ/L (136-145) 133 MEQ/L (136-145) Potassium Level 2.5 MEQ/L (3.5-5.1) 3.8 MEQ/L (3.5-5.1) 3.9 MEQ/L (3.5-5.1) Chloride Level 82 MEQ/L (98-107) 86 MEQ/L (98-107) 98 MEQ/L (98-107) Carbon Dioxide Level 37.5 MEQ/L (21.0-32.0) 29.0 MEQ/L (21.0-32.0) 21.9 MEQ/L (21.0-32.0) Anion Gap 11 MEQ/L (5-15) 14 MEQ/L (5-15) 13 MEQ/L (5-15) Estimat Glomerular Filtration Rate 64 ML/MIN (>89) 21 ML/MIN (>89) 24 ML/MIN (>89) Magnesium Level 2.6 MG/DL (1.5-2.5) 3.3 MG/DL (1.5-2.5) Direct Bilirubin 8.5 MG/DL (0.0-0.2) Indirect Bilirubin 2.1 MG/DL (0.0-0.8) . (Ashli,Melania ROSS) Result Diagram: 01/23/17 0634 01/25/17 0521 Imaging Last Impressions Abdomen/Pelvis CT 01/25/17 0000 Signed Impressions: Service Date/Time: Wednesday, January 25, 2017 08:45 - CONCLUSION: No evidence of hydronephrosis. Please see above. Miguel Ángel Encinas MD Chest X-Ray 01/24/17 1750 Signed Impressions: Service Date/Time: Tuesday, January 24, 2017 17:52 - CONCLUSION: There is no pneumothorax following right upper lobe lung mass biopsy. Gonzalez Avery MD Lung Biopsy CT 01/24/17 0000 Signed Impressions: Service Date/Time: Tuesday, January 24, 2017 15:37 - CONCLUSION: Uncomplicated CT guided biopsy. Dennis Umana MD Renal Ultrasound 01/20/17 0000 Signed Impressions: Service Date/Time: Friday, January 20, 2017 18:19 - CONCLUSION: Right side hydronephrosis, new and etiology uncertain. Ureteral jets are demonstrated and the hydronephrosis is mild compatible with partial/low grade obstruction. Gonzalez Agosto MD Consultation 01/18/17 0806 Signed Impressions: Service Date/Time: Wednesday, January 18, 2017 08:06 - CONCLUSION: Patient has a mass in the right lung, and most likely primary lung carcinoma. This can be biopsied percutaneously . I would wait until the patient's clinical status improved on biliary drainage. This could be biopsied the day prior to discharge as an outpatient. Please reconsult. Thank you for this consultation. Moody Washburn MD FACR Bile Duct Drainage 01/17/17 0000 Signed Impressions: Service Date/Time: Tuesday, January 17, 2017 13:27 - CONCLUSION: Uncomplicated internal/external biliary stent placement as above. The obstruction is at the level of the pancreatic head approaching the ampulla. No discrete stone observed. Kvng Craft Jr., MD Cholangiopancreatography MRI 01/14/17 0000 Signed Impressions: Service Date/Time: Saturday, January 14, 2017 08:31 - CONCLUSION: 1. Significant intrahepatic and extrahepatic biliary ductal dilatation with no visualized mass on this noncontrast study. A small distal tumor or stricture could be present. 2. The pancreatic duct is at the upper limits of normal in size. There is no visualized pancreatic lesion. 3. Large simple cyst again noted in the liver. There is a smaller cyst in the left lobe. 4. Small to moderate-sized hiatal hernia. 5. The gallbladder is at the upper limits of normal in size with no evidence of cholelithiasis. Oren Garduno MD Chest CT 01/14/17 0000 Signed Impressions: Service Date/Time: Sunday, January 15, 2017 08:38 - CONCLUSION: 1. Large spiculated soft tissue mass in the right upper lobe most characteristic of a primary bronchogenic carcinoma. This would be amenable to CT-guided core biopsy. 2. Pneumomediastinum is present. 3. Small pretracheal and periaortic lymph nodes noted but no definite adenopathy on this noncontrast exam. 4. Small pleural effusions left greater than right. 5. Underlying emphysema. Oren Garduno MD Procedures 01/17/17: Biliary stent, drain 01/24/17: CT guided lung biopsy . 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 She worked for the [employer] for some time during her younger years, she has five children who all live in [place]. She is a , her approximately 7 years ago, she currently lives alone. Spiritual: No spiritual affiliation, does not desire visit from cigar bander. Legal: None known. Ethical issues impacting care: None known. Important Contacts Jasmynejamee Rubio ([facility]) (daughter): . Bailey Joel (Alternate [facility]) (daughter): , [phone] Donna (daughter): [phone], [phone] Kwan Enriquez (neighbor): , Ashtyn (friend): Luci Eduardo (friend): . . Prognosis Patient is a 71 year old female who has a history of bladder cancer approximately 1.5 years ago, she presented to the ED for generalized weakness, decreased appetite, and jaundice. During this hospital admission she was found to have an elevated bilirubin, MRCP:significant intrahepatic and extrahepatic biliary ductal dilatation, she subsequently had a biliary drain placed. Patient was found to have elevated tumor markers and a CT of chest showed a large lung mass. Prior to this hospitalization the patient was completely independent, however at this point she is extremely weak and debilitated. It is unlikely she will be able to care for herself. Prognosis is guarded pending further diagnostic testing and cancer staging. 01/25 pathology pending patient remains debilitated no longer wants aggressive treatment appropriate for Hospice. . Code Status: No Code Plan * CODE STATUS:DNR * Health care decision maker: Patient designated her daughter Jasmyne Rubio to serve as her HCS and her daughter Bailey Joel , [phone] as her alternate HCS. * GOALS: Bedside meeting with patient and daughter Bailey Joel today, discussed current clinical condition, hospital course, and treatment options. Discussed at length aggressive versus comfort oriented goals of care. Introduced Hospice philosophy and services. Patient with the support of her daughter has opted to speak with Hospice admissions and their goal is to get patient home with Hospice services. Also discussed with patient and daughter cardiopulmonary resuscitation and artificial life support, patient has elected for code status to be changed to DNR. * Palliative discussed patient's desire to go home with Hospice care services with VANDANA Hall with oncology and with Dr. Paredes (hospitalist). * Case management and bedside RN also notified regarding patient's desire to go home with Hospice services. * Symptom management: decreased appetite: secondary to patient's clinical condition. BMI: 19, albumin 2.9. Recommendations for appetite stimulant to improve patient's appetite. Dizziness: secondary to patient's clinical condition , dehydration, lack of adequate nutrition. No recommendations at this time. Generalized weakness: Patient is likely weak secondary to her clinical condition and current clinical status. Recommend a nutrient dense diet. PT/OT when patient is stable enough and willing to participate. * Palliative care will continue to follow to establish trust and provide support throughout this hospitalization. . (Ashli,Melania ROSS) Attestation To help prompt me to consider important information that might be impacting today's encounter and assessment, information from prior notes written by myself or my colleagues may have been "brought forward" into today's note. My signature on this note, however, is an attestation that I personally performed the exam, history, and/or decision-making noted today, and, unless otherwise indicated, the interactions with patient, family, and staff as well as the review of records all occurred today. I also attest that the listed assessment and stated plan reflect my best clinical judgment today based on the combination of historical information, prior notes, and today's exam/ interactions. When time spent is documented, it refers only to time spent today by the signer, or if indicated, combined time spent today by collaborating physician/nurse practitioner. (Melania Cornelius) Collaborating MD Comments pt seen with Adrian Ashli ROSS, daughter requested follow up. Concur w above documentation. Pt seen in room , daughter present. Pt a & o, pleasant. Verbalizes fatigue, frustration. Review of hospital course, current pending bx, potential options poss chemo per oncology vs. comfort tx. Pt request more info RE comfort info, review hospice role/services. She requests to go home w comfort, does not want to even try chemo. Review of code status, what cpr entails, she endorses no CPR , no escalation of tx. Wants to get home to her dog. Requests hospice consultation. Breathing comfortably. Frail, cachectic. Jaundiced. No peripheral edema.Periph pulses palpable. d/w attending, GHASSAN, RN (Rhianna Weber) Melania Cornelius Jan 25, 2017 12:16 Rhianna Weber Jan 25, 2017 15:37
--- NOTE | 2017-01-25 12:58 | PD.ONC.PN ---
Subjective Subjective Remarks I'm doing the right thing. Events past week noted. Pt come to the conclusion to proceed with hospice care. KPS decline. Not interested in chemotherapy. She has family support in her decision to proceed with hospice Objective Data Date Time Temp Pulse Resp B/P (MAP) Pulse Ox O2 Delivery O2 Flow Rate FiO2 01/25/17 12:00 97.3 93 18 116/66 (83) 97 01/25/17 08:00 97.8 88 17 115/64 (81) 98 01/25/17 04:23 Room Air 01/25/17 04:00 97.4 87 18 105/56 (72) 96 01/25/17 00:00 Room Air 01/25/17 00:00 97.4 94 18 110/63 (79) 98 01/24/17 20:22 94 01/24/17 20:00 97.1 94 18 173/67 (102) 97 01/24/17 20:00 Room Air 01/24/17 18:15 97.6 96 18 106/67 (80) 92 01/24/17 17:36 101 16 126/66 (86) 98 01/24/17 17:15 103 16 107/71 (83) 98 01/24/17 16:45 98 16 113/66 (82) 98 01/24/17 16:30 98 18 107/75 (86) 98 01/24/17 16:15 97.5 101 18 101/72 (82) 98 01/25/17 01/25/17 01/25/17 07:00 15:00 23:00 Intake Total 1000 ml 120 ml Output Total 1350 ml Balance -350 ml 120 ml Result Diagram: 01/23/17 0634 01/25/17 0521 Laboratory Results Laboratory Tests Test 01/25/17 05:21 Blood Urea Nitrogen 42 MG/DL Creatinine 2.05 MG/DL Random Glucose 96 MG/DL Calcium Level 9.0 MG/DL Sodium Level 133 MEQ/L Potassium Level 3.9 MEQ/L Chloride Level 98 MEQ/L Carbon Dioxide Level 21.9 MEQ/L Anion Gap 13 MEQ/L Estimat Glomerular Filtration Rate 24 ML/MIN Total Bilirubin 10.6 MG/DL Direct Bilirubin 8.5 MG/DL Indirect Bilirubin 2.1 MG/DL Aspartate Amino Transf (AST/SGOT) 45 U/L Alanine Aminotransferase (ALT/SGPT) 63 U/L Alkaline Phosphatase 473 U/L Total Protein 7.0 GM/DL Albumin 2.4 GM/DL Imaging Studies Last 24 hours Impressions Abdomen/Pelvis CT 01/25/17 0000 Signed Impressions: Service Date/Time: Wednesday, January 25, 2017 08:45 - CONCLUSION: No evidence of hydronephrosis. Please see above. Miguel Ángel Encinas MD Chest X-Ray 01/24/17 1750 Signed Impressions: Service Date/Time: Tuesday, January 24, 2017 17:52 - CONCLUSION: There is no pneumothorax following right upper lobe lung mass biopsy. Gonzalez Avery MD Administered Medications Medications (Trade) Dose Ordered Sig/Jason Route PRN Reason Start Time Stop Time Status Last Admin Dose Admin Sodium Chloride (NS Flush) 2 ml BID IV FLUSH 01/12/17 21:00 01/24/17 20:32 Alprazolam (Xanax) 0.25 mg Q8H PRN PO ANXIETY 01/15/17 13:30 01/23/17 11:51 Diphenhydramine HCl (Benadryl) 25 mg HS PRN PO INSOMNIA 01/17/17 19:00 01/24/17 20:32 Ondansetron HCl (Zofran Inj) 4 mg Q8HR PRN IV PUSH NAUSEA OR VOMITING 01/19/17 12:30 01/20/17 16:20 Oxycodone HCl (Roxicodone) 5 mg Q6H PRN PO PAIN SCALE 4 TO 10 01/20/17 09:30 01/20/17 09:42 Sodium Chloride 1,000 ml @ 125 mls/hr Q8H IV 01/24/17 19:00 01/24/17 20:32 Objective Remarks GENERAL: Chronically ill appearing, tired, thin. SKIN: Warm and dry. No rash- jaundiced. HEAD: Normocephalic. EYES: No scleral icterus. No injection or drainage. NECK: Supple, trachea midline. No JVD or lymphadenopathy. LYMPHATIC: No adenopathy. CARDIOVASCULAR: Regular rate and rhythm without murmurs. RESPIRATORY: Breath sounds equal bilaterally. No accessory muscle use. GASTROINTESTINAL: Abdomen soft, non-tender, nondistended. EXTREMITIES: No cyanosis, or edema. MUSCULOSKELETAL: Adequate muscle tone. NEUROLOGICAL: No obvious focal deficit. Awake, alert, and oriented x3. PSYCHIATRIC: Appropriate mood and affect; insight and judgment normal. Assessment/Plan Problem List: (1) Lung mass ICD Codes: R91.8 - Other nonspecific abnormal finding of lung field Status: Acute Plan: 01/25/17. Called pathology, no result as yet. -- CT on 01/15 shows 3.8x 3.7cm large spiculated mass found in the upper R lung -- History of superficial bladder cancer, followed with Dr Castillo. -- 01/24 lung biopsy by invasive radiology (2) Hyperbilirubinemia ICD Codes: E80.6 - Other disorders of bilirubin metabolism Status: Acute Plan: 01/25/17. Bili cont to trend down, drain still draining. s/p PTC, bilirubin trending downward -- EUS--> benign duodenal stricture, duodenal mucosal irregularity, dilated pancreatic duct; dilated common bile duct --ERCP --> not completed d/t duodenal stricture. --MRCP 01-14--> significant intrahepatic and extrahepatic biliary ductal dilatation with no visualized mass, small distal tumor or stricture could be present pancreatic duct upper limits normal size, GB upper limits normal size with no evidence cholelithiasis. Assessment 71-year-old female with increasing jaundice admitted with abdominal pain Plan 1. CT-guided lung biopsy suspect bronchogenic carcinoma 2. Support decision for hospice care. 3. Emotional support provided. 4. FU out pt clinic PRN. Esme Holt MD Jan 25, 2017 12:58
[2017-01-25] MEDS: ALPRAZolam 0.25 MG TAB PO PRN (15:20)
[2017-01-25] MEDS: DOCUSATE SODIUM 100 MG CAP PO SCH (15:23)
[2017-01-25 16:00] VITALS: BP 90/50; PULSE 92; RESP 18; TEMP 97.8; O2SAT 100
[2017-01-25 20:00] VITALS: BP 120/69; PULSE 95; PULSE 97; RESP 18; TEMP 97.6; O2SAT 97
[2017-01-25] MEDS: SODIUM CHLOR 0.9% 1000 ML INJ 1,000 ML IV SCH ×2 (21:17→21:19)
[2017-01-25] MEDS: diphenhydrAMINE HCL 25 MG CAP PO PRN (21:17)
[2017-01-26] VITALS: BP 126/68; PULSE 89; RESP 18; TEMP 97.5; O2SAT 98
[2017-01-26 04:00] VITALS: BP 117/83; PULSE 83; RESP 18; TEMP 98.9; O2SAT 99
[2017-01-26] MEDS: SODIUM CHLOR 0.9% 1000 ML INJ 1,000 ML IV SCH ×2 (06:21→14:24)
[2017-01-26 08:00] VITALS: BP 110/59; PULSE 87; RESP 18; TEMP 98.5; O2SAT 99
[2017-01-26] MEDS: SODIUM CHLORIDE 0.9% FLUSH 10 ML FLUSH IV FLUSH SCH (09:00)
[2017-01-26] MEDS: DOCUSATE SODIUM 100 MG CAP PO SCH (09:27)
--- NOTE | 2017-01-26 11:23 | HHI.PR ---
Subjective Remarks comfortable, no nausea or vomiting pain controlled "it's the best" hoping to go to [facility] to [place] her 2 sons Objective Vitals Vital Signs Date Time Temp Pulse Resp B/P (MAP) Pulse Ox O2 Delivery O2 Flow Rate FiO2 01/26/17 08:00 98.5 87 18 110/59 (76) 99 01/26/17 04:00 98.9 83 18 117/83 (94) 99 01/26/17 00:00 97.5 89 18 126/68 (87) 98 01/25/17 20:00 95 01/25/17 20:00 97.6 97 18 120/69 (86) 97 01/25/17 20:00 98 Room Air 01/25/17 16:00 97.8 92 18 90/50 (63) 100 01/25/17 12:00 97.3 93 18 116/66 (83) 97 I/O 01/25/17 01/25/17 01/25/17 01/26/17 01/26/17 01/26/17 06:59 14:59 22:59 06:59 14:59 22:59 Intake Total 1000 ml 120 ml 1480 ml Output Total 1350 ml 700 ml 1200 ml Balance -350 ml -580 ml 280 ml Intake Oral 120 ml 480 ml IV Total 1000 ml 1000 ml Output Urine Total 100 ml 550 ml Gastric Drainage Total 700 ml Drainage Total 1250 ml 650 ml # Bowel Movements 0 Result Diagram: 01/23/17 0634 01/25/17 0521 Imaging Last Impressions Abdomen/Pelvis CT 01/25/17 0000 Signed Impressions: Service Date/Time: Wednesday, January 25, 2017 08:45 - CONCLUSION: No evidence of hydronephrosis. Please see above. Miguel Ángel Encinas MD Chest X-Ray 01/24/17 1750 Signed Impressions: Service Date/Time: Tuesday, January 24, 2017 17:52 - CONCLUSION: There is no pneumothorax following right upper lobe lung mass biopsy. Gonzalez Avery MD Lung Biopsy CT 01/24/17 0000 Signed Impressions: Service Date/Time: Tuesday, January 24, 2017 15:37 - CONCLUSION: Uncomplicated CT guided biopsy. Dennis Umana MD Renal Ultrasound 01/20/17 0000 Signed Impressions: Service Date/Time: Friday, January 20, 2017 18:19 - CONCLUSION: Right side hydronephrosis, new and etiology uncertain. Ureteral jets are demonstrated and the hydronephrosis is mild compatible with partial/low grade obstruction. Gonzalez Agosto MD Consultation 01/18/17 0806 Signed Impressions: Service Date/Time: Wednesday, January 18, 2017 08:06 - CONCLUSION: Patient has a mass in the right lung, and most likely primary lung carcinoma. This can be biopsied percutaneously . I would wait until the patient's clinical status improved on biliary drainage. This could be biopsied the day prior to discharge as an outpatient. Please reconsult. Thank you for this consultation. Moody Washburn MD FACR Bile Duct Drainage 01/17/17 0000 Signed Impressions: Service Date/Time: Tuesday, January 17, 2017 13:27 - CONCLUSION: Uncomplicated internal/external biliary stent placement as above. The obstruction is at the level of the pancreatic head approaching the ampulla. No discrete stone observed. Kvng Craft Jr., MD Cholangiopancreatography MRI 01/14/17 0000 Signed Impressions: Service Date/Time: Saturday, January 14, 2017 08:31 - CONCLUSION: 1. Significant intrahepatic and extrahepatic biliary ductal dilatation with no visualized mass on this noncontrast study. A small distal tumor or stricture could be present. 2. The pancreatic duct is at the upper limits of normal in size. There is no visualized pancreatic lesion. 3. Large simple cyst again noted in the liver. There is a smaller cyst in the left lobe. 4. Small to moderate-sized hiatal hernia. 5. The gallbladder is at the upper limits of normal in size with no evidence of cholelithiasis. Oren Garduno MD Chest CT 01/14/17 0000 Signed Impressions: Service Date/Time: Sunday, January 15, 2017 08:38 - CONCLUSION: 1. Large spiculated soft tissue mass in the right upper lobe most characteristic of a primary bronchogenic carcinoma. This would be amenable to CT-guided core biopsy. 2. Pneumomediastinum is present. 3. Small pretracheal and periaortic lymph nodes noted but no definite adenopathy on this noncontrast exam. 4. Small pleural effusions left greater than right. 5. Underlying emphysema. Oren Garduno MD Objective Remarks + icteresia, + jaundice, roeinted x 3 lungs- no rales or wheezes regular rhythm abdomen- drain with bag in place- draining, soft, good bowel sounds extremities no edema Procedures 01/17/17 biliary drain placement 01/24- lung biopsy Date of Insertion: Jan 12, 2017 A/P Problem List: (1) Jaundice ICD Code: R17 - Unspecified jaundice Status: Acute (2) Hyperbilirubinemia ICD Code: E80.6 - Other disorders of bilirubin metabolism Status: Acute (3) Transaminitis ICD Code: R74.0 - Nonspecific elevation of levels of transaminase and lactic acid dehydrogenase [LDH] Status: Acute (4) Leukocytosis ICD Code: D72.829 - Elevated white blood cell count, unspecified Status: Acute (5) Hyponatremia ICD Code: E87.1 - Hypo-osmolality and hyponatremia Status: Acute (6) Mild anemia ICD Code: D64.9 - Anemia, unspecified Status: Acute (7) Lung mass ICD Code: R91.8 - Other nonspecific abnormal finding of lung field Status: Acute (8) Hypotension ICD Code: I95.9 - Hypotension, unspecified Status: Acute (9) Dehydration ICD Code: E86.0 - Dehydration Status: Acute Assessment and Plan 71 years old female Moderately differentiated Lung Cancer althea mass: decided to go with hospcie Jaundice, painless: LFTs elevated but stabilizing. S/P EGD with EUS. 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 S/P MRCP. Biliary drain placed, draining well. tumor markers elevated GI and Oncology ff ANCELMO: - creatinine up again- high output from biliary tube Hyponatremia:stabilizing Hypokalemia- continue-KCL in maintenance IVF replace and ff. DC HC03 drip Leukocytosis: No other signs of infection at this time. Follow labs. Acute Anemia on top of chronic. S/P RBC transfusion 01/22. ONcology ff DVT prophylaxis: SCDs, CHRIS marin. Coagulopathy: INR is decreased following administration of FFP. DEconditioning- PT ff t Ensure tid - chocolate flavor Discussed with patient - home with hospice d/w her to talk with her daughter and 2 sons who are [place] that she wants to see these 2 sons code status- DNR Dc today with home hospice- d/w CM today if arranged Arun Paredes MD Jan 26, 2017 11:23
--- NOTE | 2017-01-26 11:24 | HHI.DS ---
Discharge Summary Admission Date Jan 12, 2017 at 20:15 Discharge Date: Jan 26, 2017 Admitting Diagnosis jaundice, hyperbilirubinemia, transaminitis (1) Jaundice ICD Code: R17 - Unspecified jaundice Status: Acute (2) Lung mass ICD Code: R91.8 - Other nonspecific abnormal finding of lung field Status: Acute (3) Hyperbilirubinemia ICD Code: E80.6 - Other disorders of bilirubin metabolism Status: Acute (4) Transaminitis ICD Code: R74.0 - Nonspecific elevation of levels of transaminase and lactic acid dehydrogenase [LDH] Status: Acute (5) Leukocytosis ICD Code: D72.829 - Elevated white blood cell count, unspecified Status: Acute (6) Hyponatremia ICD Code: E87.1 - Hypo-osmolality and hyponatremia Status: Acute (7) Mild anemia ICD Code: D64.9 - Anemia, unspecified Status: Acute (8) Hypotension ICD Code: I95.9 - Hypotension, unspecified Status: Acute (9) Dehydration ICD Code: E86.0 - Dehydration Status: Acute Procedures 01/17/17 biliary drain placement 01/24- lung biopsy Brief History - From Admission Written by Bette Cobian, acting as scribe for Dr. Love on 01/12/17 at 23:26. History of bladder cancer Bright orange when she wipes after urination x 1.5 weeks She saw her comptometrist and had blood work last Monday Diminished appetite Dizziness for about 1.5 weeks Near syncopal Cystoscopy was planned for upcoming Monday but symptoms were too severe so she came to ED. Denies abdominal pain, just lack of appetite. Vomiting after excessive burping and coughing Thinks she's been losing weight over the past 1.5 weeks Denies fever, dysuria, hematuria, black or red stool Denies chest pain or shortness of breath . CBC/BMP: 01/23/17 0634 01/25/17 0521 Significant Findings Laboratory Tests Test 01/24/17 10:30 01/25/17 05:21 Blood Urea Nitrogen 34 MG/DL (7-18) 42 MG/DL (7-18) Creatinine 2.26 MG/DL (0.50-1.00) 2.05 MG/DL (0.50-1.00) Random Glucose 167 MG/DL (74-106) Total Protein 8.5 GM/DL (6.4-8.2) Albumin 2.9 GM/DL (3.4-5.0) 2.4 GM/DL (3.4-5.0) Magnesium Level 3.3 MG/DL (1.5-2.5) Alkaline Phosphatase 615 U/L (45-117) 473 U/L (45-117) Aspartate Amino Transf (AST/SGOT) 59 U/L (15-37) 45 U/L (15-37) Alanine Aminotransferase (ALT/SGPT) 84 U/L (10-53) 63 U/L (10-53) Total Bilirubin 12.5 MG/DL (0.2-1.0) 10.6 MG/DL (0.2-1.0) Sodium Level 129 MEQ/L (136-145) 133 MEQ/L (136-145) Chloride Level 86 MEQ/L (98-107) Estimat Glomerular Filtration Rate 21 ML/MIN (>89) 24 ML/MIN (>89) Direct Bilirubin 8.5 MG/DL (0.0-0.2) Indirect Bilirubin 2.1 MG/DL (0.0-0.8) Imaging Last Impressions Abdomen/Pelvis CT 01/25/17 0000 Signed Impressions: Service Date/Time: Wednesday, January 25, 2017 08:45 - CONCLUSION: No evidence of hydronephrosis. Please see above. Miguel Ángel Encinas MD Chest X-Ray 01/24/17 1750 Signed Impressions: Service Date/Time: Tuesday, January 24, 2017 17:52 - CONCLUSION: There is no pneumothorax following right upper lobe lung mass biopsy. Gonzalez Avery MD Lung Biopsy CT 01/24/17 0000 Signed Impressions: Service Date/Time: Tuesday, January 24, 2017 15:37 - CONCLUSION: Uncomplicated CT guided biopsy. Dennis Umana MD Renal Ultrasound 01/20/17 0000 Signed Impressions: Service Date/Time: Friday, January 20, 2017 18:19 - CONCLUSION: Right side hydronephrosis, new and etiology uncertain. Ureteral jets are demonstrated and the hydronephrosis is mild compatible with partial/low grade obstruction. Gonzalez Agosto MD Consultation 01/18/17 0806 Signed Impressions: Service Date/Time: Wednesday, January 18, 2017 08:06 - CONCLUSION: Patient has a mass in the right lung, and most likely primary lung carcinoma. This can be biopsied percutaneously . I would wait until the patient's clinical status improved on biliary drainage. This could be biopsied the day prior to discharge as an outpatient. Please reconsult. Thank you for this consultation. Moody Washburn MD FACR Bile Duct Drainage 01/17/17 0000 Signed Impressions: Service Date/Time: Tuesday, January 17, 2017 13:27 - CONCLUSION: Uncomplicated internal/external biliary stent placement as above. The obstruction is at the level of the pancreatic head approaching the ampulla. No discrete stone observed. Kvng Craft Jr., MD Cholangiopancreatography MRI 01/14/17 0000 Signed Impressions: Service Date/Time: Saturday, January 14, 2017 08:31 - CONCLUSION: 1. Significant intrahepatic and extrahepatic biliary ductal dilatation with no visualized mass on this noncontrast study. A small distal tumor or stricture could be present. 2. The pancreatic duct is at the upper limits of normal in size. There is no visualized pancreatic lesion. 3. Large simple cyst again noted in the liver. There is a smaller cyst in the left lobe. 4. Small to moderate-sized hiatal hernia. 5. The gallbladder is at the upper limits of normal in size with no evidence of cholelithiasis. Oren Garduno MD Chest CT 01/14/17 0000 Signed Impressions: Service Date/Time: Sunday, January 15, 2017 08:38 - CONCLUSION: 1. Large spiculated soft tissue mass in the right upper lobe most characteristic of a primary bronchogenic carcinoma. This would be amenable to CT-guided core biopsy. 2. Pneumomediastinum is present. 3. Small pretracheal and periaortic lymph nodes noted but no definite adenopathy on this noncontrast exam. 4. Small pleural effusions left greater than right. 5. Underlying emphysema. Oren Garduno MD PE at Discharge + icteresia, + jaundice, oriented x 3 lungs- no rales or wheezes regular rhythm abdomen- drain with bag in place- draining, soft, good bowel sounds extremities no edema Pt update on day of discharge awake and alert, comfortable, no pain jaundice no nausea or vomiting Hospital Course 71 years old female Moderately differentiated Lung Cancer althea mass: decided to go with hospcie Jaundice, painless: LFTs elevated but stabilizing. S/P EGD with EUS. 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 S/P MRCP. Biliary drain placed, draining well. tumor markers elevated GI and Oncology ff ANCELMO: - creatinine up again- high output from biliary tube Hyponatremia:stabilizing Hypokalemia- continue-KCL in maintenance IVF replace and ff. DC HC03 drip Leukocytosis: No other signs of infection at this time. Follow labs. Acute Anemia on top of chronic. S/P RBC transfusion 01/22. ONcology ff DVT prophylaxis: SCDs, CHRIS marin. Coagulopathy: INR is decreased following administration of FFP. DEconditioning- PT ff t Ensure tid - chocolate flavor Discussed with patient - home with hospice d/w her to talk with her daughter and 2 sons who are in [place] that she wants to see these 2 sons code status- DNR Dc today with home hospice- d/w CM today if arranged Pt Condition on Discharge: Fair Discharge Disposition: Hospice/ Home Discharge Time: <= 30 minutes Discharge Instructions DIET: Follow Instructions for: As Tolerated, No Restrictions Speech Therapy-Diet Recommends: Pureed Activities you can perform: Weight Bearing as René Medication Profile: No Active Prescriptions or Reported Meds Arun Paredes MD Jan 26, 2017 11:24
[2017-01-26] MEDS: ALPRAZolam 0.25 MG TAB PO PRN (12:47)
== END 2017-01-26 15:49 | disposition hospice, home (50) | DRG 357 ==
LOC: NEPC 16:45 → NEDA 20:15 → N04A 21:53
PROVIDERS: ADMIT Internal Medicine; ATTEND Internal Medicine
PROC: 0DB98ZX Excision of Duodenum, Via Natural or Artificial Opening Endoscopic, Diagnostic (ICD-10-PCS; 2017-01-13)
PROC: 0DJ08ZZ Inspection of Upper Intestinal Tract, Via Natural or Artificial Opening Endoscopic (ICD-10-PCS; 2017-01-13 16:09)
PROC: 0F7 Hepatobiliary System and Pancreas, Dilation (ICD-10-PCS; principal; 2017-01-17)
PROC: BF101ZZ Fluoroscopy of Bile Ducts using Low Osmolar Contrast (ICD-10-PCS; 2017-01-17)
PROC: 30233K1 Transfusion of Nonautologous Frozen Plasma into Peripheral Vein, Percutaneous Approach (ICD-10-PCS; 2017-01-17)
PROC: 30233N1 Transfusion of Nonautologous Red Blood Cells into Peripheral Vein, Percutaneous Approach (ICD-10-PCS; 2017-01-22)
PROC: 0BBC3ZX Excision of Right Upper Lung Lobe, Percutaneous Approach, Diagnostic (ICD-10-PCS; 2017-01-24)
DX: K31.5 Obstruction of duodenum (principal); R17 Unspecified jaundice; N17.9 Acute kidney failure, unspecified; E46 Unspecified protein-calorie malnutrition; R64 Cachexia; I95.9 Hypotension, unspecified; D68.9 Coagulation defect, unspecified; E87.1 Hypo-osmolality and hyponatremia; C34.11 Malignant neoplasm of upper lobe, right bronchus or lung; N13.30 Unspecified hydronephrosis; Z68.1 Body mass index [BMI] 19.9 or less, adult; T50.8X5A Adverse effect of diagnostic agents, initial encounter; E86.0 Dehydration; D64.9 Anemia, unspecified; K22.2 Esophageal obstruction; R74.0 Nonspecific elevation of levels of transaminase and lactic acid dehydrogenase [LDH]; E80.6 Other disorders of bilirubin metabolism; K44.9 Diaphragmatic hernia without obstruction or gangrene; E87.6 Hypokalemia; Z66 Do not resuscitate; Z51.5 Encounter for palliative care; D72.829 Elevated white blood cell count, unspecified; Z85.51 Personal history of malignant neoplasm of bladder; F17.210 Nicotine dependence, cigarettes, uncomplicated
CPT/HCPCS: 32405; 36430; 36569; 43259; 47540; 71010; 71250; 74176; 74177; 74181; 76377; 76775; 76937; 77012; 80048; 80053; 80076; 80307; 81001; 82105; 82378; 83690; 83735; 85007; 85027; 85610; 85730; 86301; 86304; 86850; 86900; 86901; 86920; 86922; 86927; 88305; 88341; 88342; 93005; 96374; 99152; 99153; C1729; C1769; C1887; C1894; J1956; J2250; J2405; J2543; J2710; J3010; J3430; J3480; J7030; J7040; J7070; P9016; P9017; Q0163; Q9967